=== PATIENT | male | born 1950 | race Caucasian/White ===

== ENCOUNTER 2017-11-19 11:51 | Day surgery (SDC) | payer OTHER ==
[~2017-11-19] VITALS: Ht 177.8 cm; Wt 63.7 kg
[~2017-11-19 11:51] MED LIST: ATOR10TA PO; CYCL1PAK PO; EXFO5TAB PO; FURO10S TUBE; GLIP10TA67 PO; HYDR50TA15 PO; LISI40TA PO; METO25 PO; NIFE1TAB86 PO; PIOG30 PO; PRAV20 PO
[2017-11-19 12:26] VITALS: BP 115/71; PULSE 91; RESP 18; TEMP 98; O2SAT 98
[2017-11-19] MEDS ORDERED: AMLO-168 PO (12:37)
[2017-11-19] MEDS ORDERED: BUME2TAB PO (12:37)
[2017-11-19] MEDS ORDERED: LIPI10TA PO (12:37)
[2017-11-19] MEDS ORDERED: PLAV75TA29 PO (12:37)
[2017-11-19] MEDS ORDERED: GLIP5TAB8 PO (12:37)
[2017-11-19] MEDS ORDERED: ECASA81 PO (12:37)
--- NOTE | 2017-11-19 12:50 | PD.VS.PN ---
Pre-operative Note Pre-operative diagnosis: R LE tissue loss, PAD Planned procedure: R LE angiogram with endovascular intervention Interval History: Pt has been feeling well - no F/C. Only has R foot pain with ambulation. Labs: pending Blood: none needed Imaging: will make in OR Orders: NPO Post-operative destination: DOCU Operative site marked: Yes Consent: Informed consent has been obtained from Predrag Colich. I have explained the procedure in detail and discussed the risks, benefits, and potential complications. All questions have been answered. Kevin Leija MD Nov 19, 2017 12:50
[2017-11-19 13:14] LABS: CALCIUM 9.7 MG/DL (8.5-10.1); CREATININE 6.58 MG/DL (0.60-1.30)
[2017-11-19] MEDS ORDERED: HEPARIN-NS/PF FLUSH BAG 1,000 ML IV FLUSH ONE (13:31)
[2017-11-19] MEDS ORDERED: MIDAZOLAM HCL 2 MG/2 ML VIAL ONE (13:31)
[2017-11-19] MEDS ORDERED: HEPARIN SODIUM - IV 10,000 UNITS/10 ML VIAL ONE (13:50)
--- NOTE | 2017-11-19 14:46 | HHI.PR ---
cc: Kevin Leija MD Immediate Post Op Note Procedure Date: Nov 19, 2017 Pre Op Diagnosis: PAD w/ R LE tissue loss Post Op Diagnosis: PAD w/ R LE tissue loss Surgeon: Kevin Leija Auto Vinyl Top Installer(s): none Procedure: Aortogram w/ R LE angiogram R AT MICA LAYER L STENO POOL SUPERVISOR Angioseal Findings: 1. Occluded PT 2. Occluded AT, not able to recanalize Additional Information: L STENO POOL SUPERVISOR Angioseal Complications: none Specimen(s) removed: none Estimated blood loss: 10mL Anesthesia: MAC Drains: None Patient to: Other (DOCU) Patient Condition: Good Date/Time of Procedure: SEE SURGICAL CARE RECORD Kevin Leija MD Nov 19, 2017 14:46
--- NOTE | 2017-11-19 14:53 | CATHPROC ---
[employer] HIS Report Study Information Study Number Admission Scheduled Start Study Start [id number] Nov 19 2017 11:51AM 11/19/2017 Nov 19 2017 1:24PM [facility] Endovascular Study Admit Source Facility Department [facility] - Trapeze Performer Physician and Clinical Staff Initial MD Leija, Kevin Concrete Rod Buster Bony Jackson RN Recorder Karthik Vicente,RT(R) Rebecca Moore,RT(R) (BS) Procedures Performed Procedure Location (Site) Vessel Name Abdominal Angiogram Fem R. Com (R7) Femoral Art Abdominal Angiogram PELVIS Abdominal Angiogram Popliteal R (R10) Popliteal Abdominal Angiogram SFA (right) Femoral Art Abdominal Angiogram Tib, Ant. (right) Popliteal Abdominal Angiogram Tib, Post (right) Popliteal Angiogram (manual) Tib, Ant. (right) Popliteal GUM ROLLING MACHINE OPERATOR Tib, Ant. (right) Popliteal Wire insertion Fem Art (left) Femoral Art Wire insertion Tib, Ant. (right) Popliteal Equipment Time Culinary Arts Instructor Description Size Mfg Part Number Used/Scraped [id number] 13:39 ANGIO-DYNAMICS OMNI FLUSH 65CM CATHETER FR 4 Used *[id number] INTRODUCER SET, 13:39 COOK INC. FR 5 [id number] *[id number] Used MICROPUNCTURE, STIFFENED CXI-4.0-35-135- 13:59 COOK/KYLIE CATHETER, FR4 CXI SUPPORT FR 4 Used P-NS-0 *[id number] CATHETER, CXI SUPPORT 14:01 COOK/KYLIE .018 [id number] Used STRAIGHT .018 150CM KCFW-6.0-38-90- 13:51 COOK/KYLIE SHEATH, FR6 RAABE 90CM FR 6 Used RB WIRE, GUIDE APPROACH BI CONSULTANT [id number] 13:52 COOK/KYLIE 300CM Used MICROWIRE *[id number] WIRE, GUIDE APPROACH BI CONSULTANT [id number] 14:25 COOK/KYLIE 300CM Used MICROWIRE *[id number] WIRE, STORQ STANDARD MOD J [id number] 13:44 CORDIS/ KYLIE 300CM Used 300CM *[id number] 14:41 DAIG/ST. RAMIRO MEDICAL ANGIOSEAL FR8 FR 8 Used *[id number] BALLOON, AMPHIRION DEEP 1.5 X [id number] 14:12 [employer] TECHNOLOGIES 150CM Used 20 150CM *[id number] BALLOON, AMPHIRION DEEP 2 X 14:27 INVATEC TECHNOLOGIES 152CM [id number] Used 40 150CM BALLOON, AMPHIRION DEEP 2 X [id number] 14:20 INVATEC TECHNOLOGIES 150CM Used 80 150CM *[id number] BALLOON, AMPHIRION DEEP 3 X [id number] 14:08 INVATEC TECHNOLOGIES 150CM Used 80 150CM *[id number] WIRE, CHOICE PT 300CM PT EX. [id number] 14:17 Meditech 300CM Used SUPP *[id number] 13:39 [employer]et [employer] INDUSTRIES PACK, CCL CUSTOM * Used *[id number] TUBING, PRESSURE INJECTION [id number] 13:39 NAMIC PACER 72" Used 72" *[id number] 13:39 NYCOMED OMNIPAQUE, 300 MG, 150ML 150ML [id number] Used 13:39 NYCOMED OMNIPAQUE, 300 MG, 50ML 50ML [id number] Used [id number] 13:39 LANDRUM MEDICAL BLANKET,WARM AIR CCL * Used *[id number] 13:39 TERUMO MEDICAL SHEATH, FR4 TERUMO (10CM) FR 4 Used *[id number] JFI121 13:55 TERUMO MEDICAL SHEATH, FR6 TERUMO (10CM) FR 6 Used *[id number] 13:52 TERUMO MEDICAL/KYLIE CATHETER, FR5 ANGLED 100CM FR 5 [id number] *[id number] Used WIRE, ANGLED GLIDE .035 [id number] 13:39 TERUMO MEDICAL/KYLIE 260CM Used 260CM *[id number] Equipment Model, Serial, Lot Number and Expiration Data Description Model Number Serial Number Lot Number Expiration Date CATHETER, FR4 CXI SUPPORT [id number] 08-15-2020 CATHETER, CXI SUPPORT [id number] 08-15-2020 STRAIGHT .018 150CM SHEATH, FR6 RAABE 90CM [id number] 08-28-2020 WIRE, CHOICE PT 300CM PT EX. [id number] 12-25-2018 SUPP WIRE, GUIDE APPROACH BI CONSULTANT [id number] 12-27-2021 MICROWIRE History: Current Medications Medication Dosage/Unit Route Frequency Last Date/Time Taken ASA PLAVIX Glypizide LIPITOR History: Allergies Allergy Reaction No Known Allergies History: Risk Factors Family History of Hypertension Dyslipidemia Previous [place] Previous Heart Failure Premature CAD Yes Yes No No No Prior Valve Prior PCI Prior CABG Surgery No No No Cerebrovascular Peripheral Artery Chronic Lung On Dialysis Diabetes Diabetes Therapy Disease Disease Disease Yes No Yes No Yes Oral History: Risk Factors Selection Items Diabetes Hypercholesterolemia-Lipid Low. Therapy History: Stress Tests Stress or Imaging Studies Performed No History: Other Disease Selection Items HTN Renal Failure-Dialysis History: Other Current Smoker No Labs Hgb (g/dl) 11.60-17.00 Not Drawn Glucose (mg/dl) BUN (mg/dl) Creatinine (mg/dl) BUN:Creatinine (1:x) 74.00-106.00 7.00-18.00 0.50-1.30 10.00-20.00 162 45 6.5 6.9 Na (meq/l) K (meq/l) 136.00-145.00 3.50-5.10 139 4.3 CPK-MB (ng/ML) 0.50-3.60 Not Drawn Medication Medication Total Dose (Bolus/Oral) Medication Total Dosage/Unit 1% XYLOCAINE 20 mL FENTANYL 100 mcg HEPARIN 8000 units VERSED 2 mg Medications (Bolus/Oral) Medication Time Given Dosage/Unit Administered By Reason VERSED 11/19/2017 1:35:36 PM 1 mg Bony Jackson 1 mg VERSED given in lab by Bony Jackson RN in Right Antecubital via Peripheral IV. FENTANYL 11/19/2017 1:36:00 PM 50 mcg Bony Jackson 50 mcg FENTANYL given in lab by Bony Jackson RN in Right Antecubital via Peripheral IV. 1% XYLOCAINE 11/19/2017 1:37:38 PM 20 mL Kevin Leija 20 mL 1% XYLOCAINE given in lab by Kevin Leija in Left Groin via Subcutaneous. HEPARIN 11/19/2017 1:51:21 PM 5000 units Bony Jackson As per physicians v erbal order 5000 units HEPARIN given in lab by Bony Jackson RN in Right Antecubital via Peripheral IV. Ordered by Kevin Leija. Reason: As per physicians verbal order. HEPARIN 11/19/2017 2:11:16 PM 3000 units Bony Jackson As per physicians v erbal order 3000 units HEPARIN given in lab by Bony Jackson RN in Right Antecubital via Peripheral IV. Ordered by Kevin Leija. Reason: As per physicians verbal order. VERSED 11/19/2017 2:11:26 PM 1 mg Bony Jackson 1 mg VERSED given in lab by Bony Jackson RN in Right Antecubital via Peripheral IV. Ordered by Kevin Lemons. FENTANYL 11/19/2017 2:11:32 PM 50 mcg Bony Jackson 50 mcg FENTANYL given in lab by Bony Jackson RN in Right Antecubital via Peripheral IV. Ordered by Kevin Leija. Medication (Drip) Medication Time Given Dosage/Unit Concentration/Unit Diluent (ml) Solutio n IV Solutions 11/19/2017 1:24:03 PM 0 mL (IV) 500 NaCl .9 IV Solutions given in lab by Bony Jackson RN in Right Antecubital via Peripheral IV. Pump/Drip Flow = 20 ml/hr using NaCl .9. Initial Case Assessment Cardiovascular HR Rhythm NIBP Chest Pain 65 Sinus 160/82 0 Edema Present Skin color Skin None Normal Warm Dry Circulatory - Right Pulses Femoral 2 Scale (0,1,2,3,4,d) Circulatory - Left Pulses Femoral 2 Scale (0,1,2,3,4,d) Neurological State Oriented to time-place- Alert Moves all extremities person Respiration - General Respiration Rate SpO2 (%) O2 (lpm) (B/min) 10 99 0 Final Case Assessment Cardiovascular HR Rhythm NIBP Chest Pain 65 Sinus 142/76 0 Edema Present Skin color Skin None Normal Warm Dry Circulatory - Right Pulses Femoral 2 Scale (0,1,2,3,4,d) Circulatory - Left Pulses Femoral 2 Scale (0,1,2,3,4,d) Neurological State Oriented to time-place- Alert Moves all extremities person Respiration - General Respiration Rate SpO2 (%) O2 (lpm) (B/min) 8 100 2 Chronological Log Time Study Chronological Log 13:23:43 Patient arrived via Bed. 13:23:44 Patient Name, D.O.B, / Armband Verified By R.N. 13:23:44 Consent signed by the physician and the patient and verified by the Trapeze Performer staff. 13:23:45 Pre-op and post- op instructions given; patient acknowledges understanding of instructions. 13:23:46 Verbal Stimulation=2 Physical Stimulation=2 Airway=2 Respiration=2 TOTAL=8. (0=absent, 1=li mited, 2=present) 13:23:47 Presedation assessment performed by Trapeze Performer RN. 13:23:51 Patient has been NPO for More than 6Hrs. 13:23:52 Skin Breakdown- Right foot non healing wounds. 13:23:57 Patient Warmer Placed on the Table. 13:23:58 Zenaida Prominences Protected 13:24:02 A # 20 IV was noted in the Antecubital (right). Grade = 0 IV Solutions given in lab by Bony Jackson RN in Right Antecubital via Peripheral IV. Pump/Dri p Flow = 20 ml/hr using 13:24:03 NaCl .9. 13:24:05 History and physical on the chart or being dictated. Assessment: Initial Case, HR=65 BPM, Rhythm=Sinus, LAEV=424/82 mmhg, Chest Pain=0, Edema=None, Color=Normal, Skin = Warm, Dry Right Pulses: Femoral=2 13:24:20 Left Pulses: Femoral=2 Neurological: State=Alert, Ox3, MOBLEY Respiration: Resp=10 B/min, SpO2=99 %, O2=0 lpm 13:30:02 MD arrived. Vitals capture started with the following parameters, Patient=Adult, Interval=5 min, Initial Pr cgegoe=535 mmHg, 13:30:42 Deflation Rate=5 mmHg, Cuff placed on Right Ankle 13:31:46 Reference ECG taken 13:31:59 HR=70 bpm, PNCI=543/82 mmhg, PnE1=154.0 %, Resp=25 B/min, Pain=0, Omar=10, Hallman=2 13:34:04 Bilateral groins prepped with 2% chlorhexidine, and draped after a 3 minute waiting time. 13:35:36 1 mg VERSED given in lab by Bony Jackson RN in Right Antecubital via Peripheral IV. 13:36:00 50 mcg FENTANYL given in lab by Bony Jackson RN in Right Antecubital via Peripheral IV. 13:36:21 HR=66 bpm, AMSR=624/85 mmhg, SpO2=99.0 %, Resp=6 B/min, Pain=0, Omar=10, Hallman=2 Time Out. Correct patient, correct procedure, correct physician, power injector loaded, or not loaded with contrast with 13:36:23 surgical team present. Time Out Concurred by MD and individual staff in procedure. 13:36:24 Case Start 13:37:38 20 mL 1% XYLOCAINE given in lab by Kevin Leija in Left Groin via Subcutaneous. 13:38:03 Access site was Left Femoral Artery. 13:38:08 A SHEATH, FR4 TERUMO (10CM) FR 4 was advanced into the Fem Art (left) using the Percutaneou s technique. A OMNI FLUSH 65CM CATHETER FR 4 was advanced over a wire. OMNIPAQUE, 300 MG, 150ML 150ML was us ed for 13:40:53 injections. 13:41:24 HR=64 bpm, OSYL=993/75 mmhg, SpO2=95.0 %, Resp=0 B/min, Pain=0, Omar=10, Hallman=2 13:41:58 Through a OMNI FLUSH 65CM CATHETER FR 4, The Abdominal Aorta was injected with 10 cc's of c ontrast. 13:42:27 A WIRE, ANGLED GLIDE .035 260CM 260CM was inserted via Fem Art (left). 13:44:03 Wire removed 13:44:04 A WIRE, STORQ STANDARD MOD J 300CM 300CM was inserted via Fem Art (left). 13:45:16 Through a OMNI FLUSH 65CM CATHETER FR 4, The Abdominal Aorta was injected with 4 cc's of co ntrast. 13:45:34 Through a OMNI FLUSH 65CM CATHETER FR 4, The Abdominal Aorta was injected with 4 cc's of co ntrast. 13:45:45 Through a OMNI FLUSH 65CM CATHETER FR 4, The Abdominal Aorta was injected with 4 cc's of co ntrast. 13:46:15 Through a OMNI FLUSH 65CM CATHETER FR 4, The Abdominal Aorta was injected with 4 cc's of co ntrast. 13:46:19 HR=61 bpm, KGTS=536/76 mmhg, YnZ4=815.0 %, Resp=12 B/min, Pain=0, Omar=10, Hallman=2 13:49:06 Through a OMNI FLUSH 65CM CATHETER FR 4, The Abdominal Aorta was injected with 4 cc's of co ntrast. 13:49:54 Through a OMNI FLUSH 65CM CATHETER FR 4, The Abdominal Aorta was injected with 4 cc's of co ntrast. 13:51:20 HR=64 bpm, JSZP=842/83 mmhg, BlM6=675.0 %, Resp=3 B/min, Pain=0, Omar=10, Hallman=2 5000 units HEPARIN given in lab by Bony Jackson, RN in Right Antecubital via Peripheral IV. Or dered by Kevin Leija. 13:51:21 Reason: As per physicians verbal order. 13:52:56 A WIRE, STORQ STANDARD MOD J 300CM 300CM was inserted via Fem Art (left). 13:53:11 Catheter was removed A SHEATH, FR6 RAABE 90CM FR 6 was exchanged in the Fem Art (left). This was necessary in order to accomodate a 13:53:15 larger catheter. 13:56:23 HR=64 bpm, UBBQ=523/77 mmhg, OwT9=781.0 %, Resp=26 B/min, Pain=0, Omar=10, Hallman=2 A CATHETER, FR5 ANGLED 100CM FR 5 was advanced over a wire. OMNIPAQUE, 300 MG, 150ML 150ML was used for 13:58:28 injections. After removing the current catheter a CATHETER, FR4 CXI SUPPORT FR 4 was advanced over a WIRE, STORQ 14:00:48 STANDARD MOD J 300CM 300CM. 14:01:20 HR=63 bpm, KOXS=499/76 mmhg, AxD0=166.0 %, Resp=0 B/min, Pain=0, Omar=10, Hallman=2 A CATHETER, CXI SUPPORT STRAIGHT .018 150CM .018 was advanced over a wire. OMNIPAQUE, 300 MG, 1 50ML 14:02:11 150ML was used for injections. 14:03:35 The previous wire was exchanged for a WIRE, GUIDE APPROACH BI CONSULTANT MICROWIRE 300CM. 14:06:21 HR=62 bpm, AGKY=572/76 mmhg, SzE3=488.0 %, Resp=4 B/min, Pain=0, Omar=10, Hallman=2 14:06:21 Catheter was removed 14:06:28 Catheter was removed A BALLOON, AMPHIRION DEEP 3 X 80 150CM 150CM was inserted over WIRE, GUIDE APPROACH BI CONSULTANT MICROWI RE 14:08:06 300CM via the Tib, Ant. (right). 14:10:07 Balloon Removed. 3000 units HEPARIN given in lab by Bony Jackson RN in Right Antecubital via Peripheral IV. Or dered by Kevin Leija. 14:11:16 Reason: As per physicians verbal order. 14:11:22 HR=63 bpm, PEYC=283/77 mmhg, FwO7=282.0 %, Resp=0 B/min, Pain=0, Omar=10, Hallman=2 14:11:26 1 mg VERSED given in lab by Bony Jackson RN in Right Antecubital via Peripheral IV. Order ed by Kevin Leija. 14:11:32 50 mcg FENTANYL given in lab by Bony Jackson RN in Right Antecubital via Peripheral IV. O rdered by Kevin Leija. A BALLOON, AMPHIRION DEEP 1.5 X 20 150CM 150CM was inserted over WIRE, GUIDE APPROACH BI CONSULTANT MICRO WIRE 14:11:36 300CM via the Tib, Ant. (right). 14:14:11 Balloon Removed. 14:14:18 Wire removed 14:14:21 A WIRE, ANGLED GLIDE .035 260CM 260CM was inserted via Fem Art (left). 14:16:26 HR=62 bpm, PSZH=037/68 mmhg, SpO2=97.0 %, Resp=5 B/min, Pain=0, Omar=10, Hallman=2 14:16:30 Wire removed 14:17:16 Tib, Ant. (right) angiogram, manually injected. 14:17:40 A WIRE, CHOICE PT 300CM PT EX. SUPP 300CM was inserted via Fem Art (left). A BALLOON, AMPHIRION DEEP 2 X 80 150CM 150CM was inserted over WIRE, CHOICE PT 300CM PT EX. SUP P 300CM 14:19:13 via the Tib, Ant. (right). 14:21:23 HR=63 bpm, VDPE=460/70 mmhg, SpO2=98.0 %, Resp=0 B/min, Pain=0, Omar=10, Hallman=2 14:22:59 Wire removed 14:23:00 A WIRE, GUIDE APPROACH BI CONSULTANT MICROWIRE 300CM was inserted via Tib, Ant. (right). A CATHETER, FR5 ANGLED 100CM FR 5 was advanced over a wire. OMNIPAQUE, 300 MG, 150ML 150ML was used for 14:25:26 injections. 14:26:22 HR=64 bpm, WXXO=886/68 mmhg, SpO2=99.0 %, Resp=1 B/min, Pain=0, Omar=10, Hallman=2 A BALLOON, AMPHIRION DEEP 2 X 40 150CM 152CM was inserted over WIRE, GUIDE APPROACH BI CONSULTANT MICROWI RE 14:26:28 300CM via the Tib, Ant. (right). 14:28:10 Tib, Ant. (right) angiogram, manually injected. 14:28:46 In the Tib, Ant. (right) a BALLOON, AMPHIRION DEEP 2 X 40 150CM 152CM was inflated to 8 charleen s for 120 seconds. 14:31:21 HR=64 bpm, RXZM=706/73 mmhg, SpO2=98.0 %, Resp=6 B/min, Pain=0, Omar=10, Hallman=2 14:32:03 Balloon Removed. 14:32:59 Tib, Ant. (right) angiogram, manually injected. A CATHETER, CXI SUPPORT STRAIGHT .018 150CM .018 was advanced over a wire. OMNIPAQUE, 300 MG, 1 50ML 14:34:19 150ML was used for injections. 14:34:55 Tib, Ant. (right) angiogram, manually injected. 14:36:22 HR=65 bpm, BMXR=253/71 mmhg, SpO2=98.0 %, Resp=5 B/min, Pain=0, Omar=10, Hallman=2 14:36:24 A WIRE, GUIDE APPROACH BI CONSULTANT MICROWIRE 300CM was inserted via Fem Art (left). 14:37:19 Wire removed 14:39:49 A WIRE, STORQ STANDARD MOD J 300CM 300CM was inserted via Fem Art (left). 14:41:01 ANGIOSEAL FR8 FR 8 placement in the Fem Art (left) 14:41:23 HR=65 bpm, NJUT=968/76 mmhg, SpO2=99.0 %, Resp=6 B/min, Pain=0, Omar=10, Hallman=2 14:42:43 Case End 14:42:45 No case complications noted. 14:42:47 Cine recording checked. 14:43:17 Bedside Report will be given. Assessment: Final Case, HR=65 BPM, Rhythm=Sinus, AKVI=988/76 mmhg, Chest Pain=0, Edema=None, Color=Normal, Skin = Warm, Dry Right Pulses: Femoral=2 14:43:43 Left Pulses: Femoral=2 Neurological: State=Alert, Ox3, MOBLEY Respiration: Resp=8 B/min, DmE7=607 %, O2=2 lpm 14:44:40 Sterile dressing applied to site 14:45:54 Vitals capture stopped. 14:50:03 Patient moved to stretcher End Study - Contrast Media Used In Study Contrast Total Opened (mL) Total Used (mL) Total Wasted (mL) Omnipaque 200 80 120 End Study - Maximum Contrast Load Max Contrast Load (mL) 49.2 End Study - Radiation Exposure Fluoro Time (minutes) 21.4 End Study - Patient Disposition Complications Transferred To Interventional Outcome No Outpatient Bed unsuccessful
--- NOTE | 2017-11-21 15:33 | MP ---
cc: DIONISIO LEIJA MD DATE OF SURGERY: 11/19/2017 PREOPERATIVE DIAGNOSIS Right lower extremity tissue loss, peripheral arterial occlusive disease. POSTOPERATIVE DIAGNOSIS Right lower extremity tissue loss, peripheral arterial occlusive disease. PROCEDURE 1. Aortogram with right lower extremity angiogram. 2. Right anterior tibial artery angioplasty. ATTENDING SURGEON Dionisio Leija MD ANESTHESIA Local with sedation. INDICATIONS Mr. Solitario is a 67-year-old gentleman with endstage renal disease and profound tissue loss of his right lower extremity. He is taken to the operating room for angiographic evaluation and treatment. There is no prior catheter-based imaging available for my review. DESCRIPTION OF PROCEDURE Informed consent was obtained from the patient. He was taken to the operating room and placed supine on the operating room table. An appropriate time-out was taken to insure patient identity, the operative site and planned procedure. Antibiotics were not necessary as this is a clean procedure without planned implantation of any foreign object. Everyone in the room agreed with time-out and we proceeded. His bilateral groins were prepped and draped and the left groin was anesthetized with 1% lidocaine. A 21 gauge micropuncture needle was used to access the left common femoral artery which was exchanged using Seldinger technique through micropuncture sheath which a 0.035 Glidewire was introduced and the micropuncture sheath was exchanged for a 4-Fijian sheath. A VCF catheter was placed over the wire into the sheath and aortogram and pelvic arteriogram was obtained. The Glidewire was reintroduced and navigated down to right common femoral artery and the VCF catheter was advanced over this and a right lower extremity arteriogram was obtained. The patient was systemically heparinized with 5000 units of IV heparin. A 0.035 Orozco wire was advanced down to the popliteal artery and the VCF catheter and 4-Fijian sheath were removed and a 6-Fijian 90 cm sheath was introduced. A CXI catheter was placed over the Orozco and the Orozco exchanged for a glide and the glide and CXI were navigated down to the anterior tibial artery. The glide was removed and a 0.018 CXI and a 0.014 CENTRAL OFFICE MECHANIC wire were then inserted and multiple attempts with various wire catheter combinations were used to recanalize the anterior tibial artery. We were able to recanalize the proximal half and angioplasty this with a 2-mm balloon. The completion angiogram showed residual femoral stenosis that was unable to be traversed. The wire, catheter and sheath were removed and the groin was closed with AngioSeal. There were no complications. I was present and scrubbed for the entire procedure. INTERPRETATION OF IMAGES The patient has patent infrarenal aorta, common iliac arteries, hypogastric arteries, external iliac arteries bilaterally. There is no hemodynamically significant stenoses of any of these blood vessels. The right common femoral artery profunda and SFA are patent. The popliteal artery is patent. The peroneal artery has a dominant runoff to the level of foot. The posterior tibial artery is occluded and has no reconstitution. Anterior tibial artery is occluded immediately after the genu and has reconstitution in the dorsalis pedis. There are several high-grade calcific stenoses and jason occlusions throughout the course of the anterior tibial artery, the proximal aspect of which are angioplastied. MD CHUNG Stone/NISHA /8:01 PM /11:37 AM
== END 2017-11-19 17:31 | disposition home or self-care (01) ==
LOC: HDOC 11:51 → HDIC 11:52 → HDOC 17:31
PROVIDERS: ATTEND Surgery
DX: I73.9 Peripheral vascular disease, unspecified (principal); I12.0 Hypertensive chronic kidney disease with stage 5 chronic kidney disease or end stage renal disease; N18.6 End stage renal disease; E11.22 Type 2 diabetes mellitus with diabetic chronic kidney disease; E78.5 Hyperlipidemia, unspecified
CPT/HCPCS: 37228; 75710; 75736; 80048; C1725; C1751; C1760; C1769; C1887; C1893; G0269; J1644; J2250; J3010

== ENCOUNTER 2017-11-25 13:42 | Inpatient (IN) | payer OTHER, MEDICARE ==
[~2017-11-25] VITALS: Ht 177.8 cm; Wt 75.0 kg
[~2017-11-25 13:42] MED LIST changes: +AMLO-168 PO; -ATOR10TA PO; +BUME2TAB PO; -CYCL1PAK PO; +ECASA81 PO; -EXFO5TAB PO; -FURO10S TUBE; -GLIP10TA67 PO; +GLIP5TAB8 PO; -HYDR50TA15 PO; +LIPI10TA PO; -LISI40TA PO; -METO25 PO; -NIFE1TAB86 PO; -PIOG30 PO; +PLAV75TA29 PO; -PRAV20 PO
[2017-11-25 13:50] VITALS: BP 160/84; PULSE 91; RESP 16; TEMP 98; O2SAT 95
[2017-11-25 14:24] LABS: BASOPHIL # 0.1 TH/MM3 (0-0.2); EOSINOPHIL # 0.2 TH/MM3 (0-0.4); EOSINOPHIL % 2.1 % (0.0-4.0); HEMATOCRIT 29.1 % (39.0-51.0); HEMOGLOBIN 9.7 GM/DL (13.0-17.0); LYMPH % 13.5 % (9.0-44.0); LYMPHOCYTE # 1.3 TH/MM3 (1.0-4.8); MEAN CELL VOLUME 98.2 FL (80.0-100.0); MEAN CORPUSCULAR HEMOGLOBIN 32.6 PG (27.0-34.0); MEAN CORPUSCULAR HGB CONC 33.2 % (32.0-36.0); MEAN PLATELET VOLUME 7.6 FL (7.0-11.0); MONO % 11.8 % (0.0-8.0); MONOCYTE # 1.1 TH/MM3 (0-0.9); NEUT % 71.6 % (16.0-70.0); PLATELET COUNT 310 TH/MM3 (150-450); RED BLOOD COUNT 2.96 MIL/MM3 (4.50-5.90); RED CELL DISTRIBUTION WIDTH 14.4 % (11.6-17.2); WHITE BLOOD COUNT 9.7 TH/MM3 (4.0-11.0)
[2017-11-25 14:33] LABS: PROTHROMBIN TIME - PATIENT 10.6 SEC (9.8-11.6)
[2017-11-25 14:42] LABS: BICARBONATE 27.3 MEQ/L (21.0-32.0)
[2017-11-25 14:46] LABS: CREATININE 10.41 MG/DL (0.60-1.30)
--- NOTE | 2017-11-25 14:52 | RADRPT ---
EXAM DATE/TIME: 11/25/2017 14:23 [facility] COMPARISON: No previous studies available for comparison. INDICATIONS : Right foot pain with open wound on great toe. MEDICAL HISTORY : Diabetes mellitus type II. Hypertension SURGICAL HISTORY : None. ENCOUNTER: Initial ACUITY: 3 months PAIN SCORE: 3/10 LOCATION: Right foot FINDINGS: 3 views of the right foot demonstrate normal mineralization and no finding to indicate fracture or di slocation. There is extensive small vessel arterial vascular calcification. Lisfranc joint appears in tact. The distal phalanx of the first digit has an abnormal appearance. The tuft and diaphyseal regio n are absent. The proximal epiphysis and portion of the metaphysis are present. Soft tissue irregular ity is present at the tip of the distal phalanx. CONCLUSION: 1. There has been osseous destruction of the distal half of the first digit distal phalanx. 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 2. Severe small vessel arterial vascular calcification in a pattern seen in diabetic patients. Benjamín Harris MD on November 25, 2017 at 14:49 Board Certified Radiologist. This report was verified electronically.
--- NOTE | 2017-11-25 15:39 | PD ---
HPI Chief Complaint: Injury Time Seen by Provider: 15:02 Travel History International Travel<30 days: No Contact w/Intl Traveler<30days: No Traveled to known affect area: No History of Present Illness HPI This is a 67-year-old male with a history of renal failure, diabetes mellitus, peripheral vascular disease, who presents today with worsening infection of his right great toe. Patient states he was seen and admitted 2 months ago for the [facility]. He states at that time there is a vascular surgeon that he interacted with who the time did not want to do anything surgical. He reports now that the toe has gotten progressively worse to the point now where there is exposed bone and redness. He denies any fevers, chills. He denies any vomiting or diarrhea. Patient also reports that he has a lesion on his right heel as well as his right lateral sole of his foot. The patient states he was supposed to have dialysis today however came here instead because he is more concerned about his foot. Patient also reports that his renal doctor is Dr. Abreu. His primary doctor is Dr. Ruben peters [facility]. [facility] Past Medical History Cancer: No Cardiovascular Problems: Yes High Cholesterol: Yes Chest Pain: No Diabetes: Yes Patient Takes Glucophage: No Endocrine: Yes Gastrointestinal Disorders: No Glaucoma: No Genitourinary: Yes Hepatitis: No Hiatal Hernia: No Hypertension: Yes Implanted Vascular Access Dvce: No Musculoskeletal: Yes Neurologic: No Reproductive: No Respiratory: No Integumentary: No Thyroid Disease: No Past Surgical History Abdominal Surgery: No Cardiac Surgery: No Ear Surgery: No Endocrine Surgery: No Eye Surgery: No Genitourinary Surgery: No Gynecologic Surgery: No Neurologic Surgery: No Oral Surgery: No Thoracic Surgery: No Other Surgery: Yes Social History Alcohol Use: Yes Tobacco Use: No Substance Use: No Allergies-Medications (Allergen,Severity, Reaction): Coded Allergies: No Known Allergies (Unverified , 11/07/14) Reported Meds & Prescriptions Reported Meds & Active Scripts Active Reported Glipizide 5 Mg Tab 5 Mg PO DAILY Take 30 minutes before a meal Plavix (Clopidogrel Bisulfate) 75 Mg Tab 75 Mg PO DAILY Bumetanide 2 Mg Tab 2 Mg PO DAILY Lipitor (Atorvastatin Calcium) 10 Mg Tab 10 Mg PO HS Aspirin DR (Aspirin) 81 Mg Tabdr 81 Mg PO DAILY Amlodipine-Valsartan 10-160 Mg Tab 1 Tab PO DAILY Review of Systems Except as stated in HPI: all other systems reviewed are Neg General / Constitutional: No: Fever, Chills HENT: No: Headaches, Lightheadedness, Neck Pain Cardiovascular: No: Chest Pain or Discomfort, Palpitations Respiratory: No: Cough, Shortness of Breath Gastrointestinal: No: Nausea, Vomiting, Abdominal Pain Genitourinary: No: Flank Pain Musculoskeletal: Positive: Edema (Mild), Pain (Right foot and great toe), Other (Increased redness and black coloration) Skin: Positive Lesions (Right great toe lesion with exposed bone. Also with a heel ulcer and mid forefoot plantar ulcer.), No Other Neurologic: No: Weakness, Headache Physical Exam Narrative GENERAL: Well-developed well-nourished male in no acute respiratory distress. SKIN: Focused skin assessment warm/dry. HEAD: Atraumatic. Normocephalic. EYES: Pupils equal and round. No scleral icterus. No injection or drainage. ENT: No nasal bleeding or discharge. Mucous membranes pink and moist. NECK: Trachea midline. No JVD. CARDIOVASCULAR: Regular rate and rhythm. No murmur appreciated. RESPIRATORY: No accessory muscle use. Clear to auscultation. Breath sounds equal bilaterally. GASTROINTESTINAL: Abdomen soft, non-tender, nondistended. Hepatic and splenic margins not palpable. MUSCULOSKELETAL: On examination of the patient's right foot, there is eschar and open bone exposed to the right first digit. There is surrounding erythema at the base of his right great toe. There is also a black nondraining ulcer noted on his heel and a black ulcer noted on his mid foot sole on the right lateral area. Dopplerable pulses on the dorsalis pedis but not palpable. NEUROLOGICAL: Awake and alert. No obvious cranial nerve deficits. Motor grossly within normal limits. Normal speech. Data Data Last Documented VS Vital Signs Date Time Temp Pulse Resp B/P (MAP) Pulse Ox O2 Delivery O2 Flow Rate FiO2 11/25/17 16:18 96 11/25/17 15:17 Room Air 11/25/17 13:50 98.0 91 16 160/84 (109) Orders Orders Complete Blood Count With Diff (11/25/17 13:53) Basic Metabolic Panel (Bmp) (11/25/17 13:53) Foot, Complete ([id number]) (11/25/17 ) Coag Profile (11/25/17 13:53) Blood Culture (11/25/17 15:20) Wound Culture And Gram Stain (11/25/17 15:20) Iv Access Insert/Monitor (11/25/17 15:20) Ecg Monitoring (11/25/17 15:20) Oximetry (11/25/17 15:20) Admit To Inpatient (11/25/17 ) Vital Signs (Adult) Q4H (11/25/17 16:26) Activity Oob With Assistance (11/25/17 16:26) Anode Rebuilder / Telemetry .CONTINUOUS (11/25/17 16:26) Diet 1800 Ada Cons Carb (11/25/17 Dinner) Diet Renal (11/25/17 Dinner) Sodium Chloride 0.9% Flush (Ns Flush) (11/25/17 16:30) Sodium Chloride 0.9% Flush (Ns Flush) (11/25/17 21:00) Basic Metabolic Panel (Bmp) (11/26/17 06:00) Complete Blood Count With Diff (11/26/17 06:00) Pt Request For Service (11/25/17 16:26) Case Management Consult (11/25/17 16:26) Naloxone Inj (Narcan Inj) (11/25/17 16:30) Inpatient Certification (11/25/17 ) Admit Order (Ed Use Only) (11/25/17 16:33) Labs Laboratory Tests Test 11/25/17 14:10 White Blood Count 9.7 TH/MM3 Red Blood Count 2.96 MIL/MM3 Hemoglobin 9.7 GM/DL Hematocrit 29.1 % Mean Corpuscular Volume 98.2 FL Mean Corpuscular Hemoglobin 32.6 PG Mean Corpuscular Hemoglobin Concent 33.2 % Red Cell Distribution Width 14.4 % Platelet Count 310 TH/MM3 Mean Platelet Volume 7.6 FL Neutrophils (%) (Auto) 71.6 % Lymphocytes (%) (Auto) 13.5 % Monocytes (%) (Auto) 11.8 % Eosinophils (%) (Auto) 2.1 % Basophils (%) (Auto) 1.0 % Neutrophils # (Auto) 7.0 TH/MM3 Lymphocytes # (Auto) 1.3 TH/MM3 Monocytes # (Auto) 1.1 TH/MM3 Eosinophils # (Auto) 0.2 TH/MM3 Basophils # (Auto) 0.1 TH/MM3 CBC Comment DIFF FINAL Differential Comment Prothrombin Time 10.6 SEC Prothromb Time International Ratio 1.0 RATIO Activated Partial Thromboplast Time 26.8 SEC Blood Urea Nitrogen 89 MG/DL Creatinine 10.41 MG/DL Random Glucose 211 MG/DL Calcium Level 11.0 MG/DL Sodium Level 135 MEQ/L Potassium Level 4.6 MEQ/L Chloride Level 97 MEQ/L Carbon Dioxide Level 27.3 MEQ/L Anion Gap 11 MEQ/L Estimat Glomerular Filtration Rate 5 ML/MIN MDM Medical Decision Making Medical Screen Exam Complete: Yes Emergency Medical Condition: Yes Differential Diagnosis Osteomyelitis versus dry gangrene versus cellulitis versus peripheral vascular disease. 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 Patient states he has had this for at least 2 months. He reports is now to the point where he has exposed bone. Patient has a history of diabetes mellitus and peripheral vascular disease. The patient appears to have gangrenous toe with likely osteomyelitis. He will be admitted to the medical service. Case was discussed with Dr. Joe who is agreeable to admission. Diagnosis Primary Impression: Right foot infection with great toe osteomyelitis Additional Impressions: ESRD (end stage renal disease) DM (diabetes mellitus) Pain HTN (hypertension) Admitting Information Admitting Physician Requests: Admit Guilherme Champagne MD Nov 25, 2017 15:39
[2017-11-25 16:18] VITALS: O2SAT 96
[2017-11-25] MEDS ORDERED: SODIUM CHLORIDE 0.9% FLUSH 10 ML FLUSH IV FLUSH PRN (16:30)
[2017-11-25] MEDS ORDERED: NALOXONE HCL 0.4 MG/ML AMP IV PUSH PRN (16:30)
[2017-11-25 17:30] VITALS: BP 201/88; PULSE 74; RESP 20; TEMP 97.3; O2SAT 100
--- NOTE | 2017-11-25 18:00 | HHI.HP ---
[facility] Unknown Admission Diagnosis right foot osteomyelitis, dm, renal failure dialysis dependent. Diagnoses: Chief Complaint: Right foot toe wound Travel History International Travel<30 Days: No Contact w/Intl Traveler <30 Da: No Traveled to Known Affected Are: No History of Present Illness Written by Stephanie Jiang, acting as scribe for Dr. Hale on 11/25/17 at 17:45. 67-year-old male with past medical history significant for HTN, ESRD on HD, DM, and PVD who presents to the emergency department with complaints of right foot great toe wound as well as right foot lateral and heel wound. He states that his right toe issues originally began 3 months ago and it started off originally as a blister on the top of his big toe as well as a blister on the side of his right foot. Review of EMR, patient recently underwent right anterior tibial artery angioplasty by Dr. Leija on 11/19/17. Patient reports that he was at [facility] in [facility] about 2 months ago due to right foot wounds. Patient states that there was no real treatment and that the foot was only looked at and application of ointment and bandages were done. Does not know who the stock letterer was who saw him while he was in the hospital. He states that he was only in the hospital for 3 days and was given IV antibiotics however felt that nothing was really being done for his foot therefore he left AGAINST MEDICAL ADVICE. Patient reports that he had been home and noticed that his right foot big toe was starting to get very hard. Therefore he grabbed a toenail clipper and clipped the toenail but when he clipped the toenail part of the toe fell off. He reports that the toe bled for about 1-2 hours. He believes that it was old blood underneath the toe that could have possibly caused his toe to be affected. Denies any fevers, chills, nausea, vomiting, diarrhea, constipation, black stools. No diarrhea BM every everyday. Review of Systems Except as stated in HPI: all other systems reviewed are Neg Past Family Social History Past Medical History DM HTN PVD ESRD on HD Dr. Abreu (for the past 3months) M/W/F ? PA at [facility] Past Surgical History Right arm Left femur back surgery Right subclavian perma cath Right anterior tibial artery angioplasty on 11/19/[address] Leija Reported Medications Reported Meds & Active Scripts Active Reported Glipizide 5 Mg Tab 5 Mg PO DAILY Take 30 minutes before a meal Plavix (Clopidogrel Bisulfate) 75 Mg Tab 75 Mg PO DAILY Bumetanide 2 Mg Tab 2 Mg PO DAILY Lipitor (Atorvastatin Calcium) 10 Mg Tab 10 Mg PO HS Aspirin DR (Aspirin) 81 Mg Tabdr 81 Mg PO DAILY Amlodipine-Valsartan 10-160 Mg Tab 1 Tab PO DAILY Allergies: Coded Allergies: No Known Allergies (Unverified , 11/07/14) Family History Is not aware of his past family history Social History Tobacco: Denies Alcohol: One beer every 6 months Illicit drug use: Denies Physical Exam Vital Signs Vital Signs Date Time Temp Pulse Resp B/P (MAP) Pulse Ox O2 Delivery O2 Flow Rate FiO2 11/25/17 16:18 96 11/25/17 15:17 96 Room Air 11/25/17 13:50 98.0 91 16 160/84 (109) 95 Physical Exam GENERAL: This is a well-nourished, well-developed patient, in no apparent distress. SKIN: No rashes, ecchymoses or lesions. Cool and dry. Right foot great toe partially missing, black or on top of toe. Right foot lateral aspect eschar, right heel eschar. HEAD: Atraumatic. Normocephalic. No temporal or scalp tenderness. EYES: Pupils equal round and reactive. Extraocular motions intact. No scleral icterus. No injection or drainage. ENT: Nose without bleeding, purulent drainage or septal hematoma. Throat without erythema, tonsillar hypertrophy or exudate. Uvula midline. Airway patent. NECK: Trachea midline. No JVD or lymphadenopathy. Supple, nontender, no meningeal signs. CARDIOVASCULAR: Regular rate and rhythm without murmurs, gallops, or rubs. RESPIRATORY: Clear to auscultation. Breath sounds equal bilaterally. No wheezes , rales, or rhonchi. GASTROINTESTINAL: Abdomen soft, non-tender, nondistended. No hepato-splenomegaly , or palpable masses. No guarding. MUSCULOSKELETAL: Extremities without clubbing, cyanosis, or edema. No joint tenderness, effusion, or edema noted. No calf tenderness. Negative Homans sign bilaterally. NEUROLOGICAL: Awake and alert. Cranial nerves II through XII intact. Motor and sensory grossly within normal limits. Five out of 5 muscle strength in all muscle groups. Normal speech. Laboratory Laboratory Tests Test 11/25/17 14:10 White Blood Count 9.7 Red Blood Count 2.96 Hemoglobin 9.7 Hematocrit 29.1 Mean Corpuscular Volume 98.2 Mean Corpuscular Hemoglobin 32.6 Mean Corpuscular Hemoglobin Concent 33.2 Red Cell Distribution Width 14.4 Platelet Count 310 Mean Platelet Volume 7.6 Neutrophils (%) (Auto) 71.6 Lymphocytes (%) (Auto) 13.5 Monocytes (%) (Auto) 11.8 Eosinophils (%) (Auto) 2.1 Basophils (%) (Auto) 1.0 Neutrophils # (Auto) 7.0 Lymphocytes # (Auto) 1.3 Monocytes # (Auto) 1.1 Eosinophils # (Auto) 0.2 Basophils # (Auto) 0.1 CBC Comment DIFF FINAL Differential Comment Prothrombin Time 10.6 Prothromb Time International Ratio 1.0 Activated Partial Thromboplast Time 26.8 Blood Urea Nitrogen 89 Creatinine 10.41 Random Glucose 211 Calcium Level 11.0 Sodium Level 135 Potassium Level 4.6 Chloride Level 97 Carbon Dioxide Level 27.3 Anion Gap 11 Estimat Glomerular Filtration Rate 5 Date/Time Source Procedure Growth Status 11/25/17 16:05 Blood Peripheral Aerobic Blood Culture Pending Received 11/25/17 16:05 Blood Peripheral Anaerobic Blood Culture Pending Received 11/25/17 16:05 Wound Toe Gram Stain Pending Received 11/25/17 16:05 Wound Toe Wound Culture Pending Received Result Diagram: 11/25/17 1410 11/25/17 1410 Caprini VTE Risk Assessment Caprini Risk Assessment Model Point Value = 1 Point Value = 2 Point Value = 3 Point Value = 5 Age 41-60 Minor surgery BMI > 25 kg/m2 Swollen legs Varicose veins or History of unexplained or recurrent spontaneous Oral contraceptives or hormone replacement Sepsis (< 1 month) Serious lung disease, including pneumonia (< 1 month) Abnormal pulmonary function Acute myocardial infarction Congestive heart failure (< 1 month) History of inflammatory bowel disease Medical patient at bed rest Age 61-74 Arthroscopic surgery Major open surgery (> 45 min) Laparoscopic surgery (> 45 min) Malignancy Confined to bed (> 72 hours) Immobilizing plaster cast Central venous access Age >= 75 History of VTE Family history of VTE Factor V Leiden Prothrombin [id number] Lupus anticoagulant Anticardiolipin antibodies Elevated serum homocysteine Heparin-induced thrombocytopenia Other congenital or acquired thrombophilia Stroke (< 1 month) Elective arthroplasty Hip, pelvis, or leg fracture Acute spinal cord injury (< 1 month) Prophylaxis Regimen Total Risk Factor Score Risk Level Prophylaxis Regimen 0-1 Low Early ambulation 2 Moderate Order ONE of the following: *Sequential Compression Device (SCD) *Heparin 5000 units SQ BID 3-4 Higher Order ONE of the following medications: *Heparin 5000 units SQ TID *Enoxaparin/Lovenox 40 mg SQ daily (WT < 150 kg, CrCl > 30 mL/min) *Enoxaparin/Lovenox 30 mg SQ daily (WT < 150 kg, CrCl > 10-29 mL/min) *Enoxaparin/Lovenox 30 mg SQ BID (WT < 150 kg, CrCl > 30 mL/min) AND/OR *Sequential Compression Device (SCD) 5 or more Highest Order ONE of the following medications: *Heparin 5000 units SQ TID (Preferred with Epidurals) *Enoxaparin/Lovenox 40 mg SQ daily (WT < 150 kg, CrCl > 30 mL/min) *Enoxaparin/Lovenox 30 mg SQ daily (WT < 150 kg, CrCl > 10-29 mL/min) *Enoxaparin/Lovenox 30 mg SQ BID (WT < 150 kg, CrCl > 30 mL/min) AND *Sequential Compression Device (SCD) Assessment and Plan Assessment and Plan 67-year-old male with past medical history significant for HTN, ESRD on HD, DM, and PVD who presents to the emergency department with complaints of right foot great toe wound as well as right foot lateral and heel wound. Right foot great toe gangrene Right heel, right lateral foot eschars PVD -Right foot x-ray reviewed, osseous destruction of the distal half of the first digit distal phalanx. Findings are highly suspicious for osteomyelitis associated osseous destruction. Severe small vessel arterial vascular calcification in pattern seen in diabetic patients. -Blood cultures 2 pending, total culture pending -We will start IV Levaquin and IV Zosyn, consult infectious disease for further recommendations, greatly appreciated -Consult placed for podiatry, appreciate recommendations -Consult placed for vascular surgery Dr. Leija who recently did right anterior tibial artery angioplasty on 11/19/17 ESRD on HD -Hemodialysis Saturday, Saturday, Saturday. Patient reports not having HD today. CMP reviewed, creatinine 10.41, potassium 4.6 -Consult placed for nephrology for HD, appreciate recommendations DM -Diabetic diet, Accu-Cheks with insulin sliding scale -Suspect patient is not compliant DVT prophylaxis-ambulation For nurse to do medication reconciliation once verified by patient's pharmacy Physician Certification Order for Inpatient Services The services are ordered in accordance with Medicare regulations or non- Medicare payer requirements, as applicable. In the case of services not specified as inpatient-only, they are appropriately provided as inpatient services in accordance with the 2-midnight benchmark. days is the estimated time the patient will need to remain in the hospital, assuming treatment plan goals are met and no additional complications. Stephanie Jiang Nov 25, 2017 18:00
[2017-11-25] MEDS ORDERED: LEVOFLOXACIN 750 MG PREMIX INJ 150 ML IV ONE (18:15)
[2017-11-25] MEDS ORDERED: GLUCAGON 1 MG/ML VIAL OTHER PRN (18:15)
[2017-11-25] MEDS ORDERED: DEXTROSE 50% IN WATER 50 ML VIAL(D50) IV PUSH PRN (18:15)
[2017-11-25 19:52] VITALS: BP 181/81; PULSE 71; RESP 16; TEMP 97.7; O2SAT 100
[2017-11-25] MEDS: PIPERACIL-TAZO 4.5 GM PREMIX 100 ML IV SCH (20:59)
[2017-11-25] MEDS: SODIUM CHLORIDE 0.9% FLUSH 10 ML FLUSH IV FLUSH SCH (21:00)
[2017-11-25] MEDS: INSULIN ASPART SUPPLEMENTAL SCALE SQ SCH (21:04)
[2017-11-25 23:20] VITALS: BP 139/66; PULSE 98; RESP 16; TEMP 97.2; O2SAT 92
[2017-11-26] MEDS: PIPERACIL-TAZO 4.5 GM PREMIX 100 ML IV SCH ×2 (02:26→08:53)
[2017-11-26 04:21] VITALS: BP 140/63; PULSE 72; RESP 16; TEMP 98.9; O2SAT 96
[2017-11-26 05:30] LABS: CALCIUM 10.4 MG/DL (8.5-10.1)
[2017-11-26 05:32] LABS: BASOPHIL # 0.1 TH/MM3 (0-0.2); EOSINOPHIL # 0.3 TH/MM3 (0-0.4); EOSINOPHIL % 3.7 % (0.0-4.0); HEMATOCRIT 29.4 % (39.0-51.0); HEMOGLOBIN 10.1 GM/DL (13.0-17.0); LYMPH % 15.9 % (9.0-44.0); LYMPHOCYTE # 1.2 TH/MM3 (1.0-4.8); MEAN CELL VOLUME 97.2 FL (80.0-100.0); MEAN CORPUSCULAR HEMOGLOBIN 33.4 PG (27.0-34.0); MEAN CORPUSCULAR HGB CONC 34.4 % (32.0-36.0); MEAN PLATELET VOLUME 7.3 FL (7.0-11.0); MONO % 14.4 % (0.0-8.0); MONOCYTE # 1.1 TH/MM3 (0-0.9); PLATELET COUNT 296 TH/MM3 (150-450); RED BLOOD COUNT 3.02 MIL/MM3 (4.50-5.90); RED CELL DISTRIBUTION WIDTH 14.1 % (11.6-17.2); WHITE BLOOD COUNT 7.8 TH/MM3 (4.0-11.0)
[2017-11-26 05:36] LABS: CREATININE 10.54 MG/DL (0.60-1.30)
[2017-11-26] MEDS: INSULIN ASPART SUPPLEMENTAL SCALE SQ SCH ×4 (08:00→22:05)
[2017-11-26 08:03] VITALS: BP 148/67; PULSE 77; RESP 18; TEMP 97.3; O2SAT 97
[2017-11-26] MEDS: SODIUM CHLORIDE 0.9% FLUSH 10 ML FLUSH IV FLUSH SCH ×2 (08:54→22:05)
[2017-11-26] MEDS ORDERED: INFLUENZA VIRUS VACCINE (QUADRIVALENT) 0.5 ML SYR IM ONE (10:00)
[2017-11-26] MEDS ORDERED: SODIUM CHLOR 0.9% 1000 ML INJ 1,000 ML IV PRN (10:38)
[2017-11-26] MEDS ORDERED: SODIUM CHLOR 0.9% 1000 ML INJ 1,000 ML OTHER PRN ×2 (10:38)
--- NOTE | 2017-11-26 10:42 | PD.CONS ---
HPI Service Nephrology Consult Requested By Dr Hale Reason for Consult ESRD and HD Primary Care Physician Unknown History of Present Illness Patient is a 67-year-old male with past medical history significant for HTN, ESRD on HD, DM, and PVD who presents to the emergency department with complaints of right foot great toe wound as well as right foot lateral and heel wound. He states that his right toe issues originally began 3 months ago and it started off originally as a blister on the top of his big toe as well as a blister on the side of his right foot. Review of EMR, patient recently underwent right anterior tibial artery angioplasty by Dr. Leija on 11/19/17. Nephrology is consulted for ESRD and HD. He has a right chest wall permacath. His customs director is Dr. Abreu and his normal days are // and he missed yesterday because he was coming to the hospital. He has been on dialysis for about 3 months. (Yoli Reich) Past Family Social History Allergies: Coded Allergies: No Known Allergies (Unverified , 11/07/14) Past Medical History M HTN PVD ESRD on HD Dr. Abreu Past Surgical History Right arm Left femur back surgery Right subclavian perma cath Right anterior tibial artery angioplasty on 11/19/[address] Leija Active Ordered Medications Current Medications Medications (Trade) Dose Ordered Sig/Lia Route Start Time Stop Time Status Last Admin (NS Flush) 2 ml UNSCH PRN IV FLUSH 11/25/17 16:30 (NS Flush) 2 ml BID IV FLUSH 11/25/17 21:00 11/26/17 08:54 (Narcan Inj) 0.4 mg UNSCH PRN IV PUSH 11/25/17 16:30 Piperacillin Sod/ Tazobactam Sod 100 ml @ 200 mls/hr Q6H IV 11/25/17 20:00 11/26/17 08:53 (D50w (Vial) Inj) 50 ml UNSCH PRN IV PUSH 11/25/17 18:15 (Glucagon Inj) 1 mg UNSCH PRN OTHER 11/25/17 18:15 (NovoLOG SUPPLEMENTAL SCALE) 1 ACHS SLIDING SCALE SQ 11/25/17 21:00 11/25/17 21:04 Levofloxacin/ Dextrose 100 ml @ 100 mls/hr WITH DIALYSIS IV 11/27/17 19:00 Family History unknown both Social History Denies smoking or tobacco use Lives alone (Yoli Reich) Physical Exam Vital Signs Vital Signs Date Time Temp Pulse Resp B/P (MAP) Pulse Ox O2 Delivery O2 Flow Rate FiO2 11/26/17 08:03 97.3 77 18 148/67 (94) 97 11/26/17 08:00 Room Air 11/26/17 04:21 98.9 72 16 140/63 (88) 96 11/26/17 04:10 Room Air 11/26/17 00:00 Room Air 11/25/17 23:20 97.2 98 16 139/66 (90) 92 11/25/17 20:00 Room Air 11/25/17 19:52 97.7 71 16 181/81 (114) 100 11/25/17 17:30 97.3 74 20 201/88 (125) 100 11/25/17 16:18 96 11/25/17 15:17 96 Room Air 11/25/17 13:50 98.0 91 16 160/84 (109) 95 Physical Exam GENERAL: alert and oriented SKIN: Warm and dry. Right foot great toe partially missing, black or on top of toe. Right foot lateral aspect eschar, right heel eschar. HEAD: Normocephalic. EYES: No scleral icterus. No injection or drainage. NECK: Supple, trachea midline. No JVD or lymphadenopathy. CARDIOVASCULAR: Regular rate and rhythm without murmurs, gallops, or rubs. RESPIRATORY: Breath sounds equal bilaterally. No accessory muscle use. GASTROINTESTINAL: Abdomen soft, non-tender, nondistended. MUSCULOSKELETAL: No cyanosis, or edema. BACK: Nontender without obvious deformity. No CVA tenderness. Laboratory Laboratory Tests Test 11/25/17 14:10 11/26/17 04:50 11/26/17 09:08 White Blood Count 9.7 7.8 Red Blood Count 2.96 3.02 Hemoglobin 9.7 10.1 Hematocrit 29.1 29.4 Mean Corpuscular Volume 98.2 97.2 Mean Corpuscular Hemoglobin 32.6 33.4 Mean Corpuscular Hemoglobin Concent 33.2 34.4 Red Cell Distribution Width 14.4 14.1 Platelet Count 310 296 Mean Platelet Volume 7.6 7.3 Neutrophils (%) (Auto) 71.6 65.0 Lymphocytes (%) (Auto) 13.5 15.9 Monocytes (%) (Auto) 11.8 14.4 Eosinophils (%) (Auto) 2.1 3.7 Basophils (%) (Auto) 1.0 1.0 Neutrophils # (Auto) 7.0 5.0 Lymphocytes # (Auto) 1.3 1.2 Monocytes # (Auto) 1.1 1.1 Eosinophils # (Auto) 0.2 0.3 Basophils # (Auto) 0.1 0.1 CBC Comment DIFF FINAL DIFF FINAL Differential Comment Prothrombin Time 10.6 Prothromb Time International Ratio 1.0 Activated Partial Thromboplast Time 26.8 Blood Urea Nitrogen 89 87 Creatinine 10.41 10.54 Random Glucose 211 81 130 Calcium Level 11.0 10.4 Sodium Level 135 139 Potassium Level 4.6 4.6 Chloride Level 97 101 Carbon Dioxide Level 27.3 27.0 Anion Gap 11 11 Estimat Glomerular Filtration Rate 5 5 Date/Time Source Procedure Growth Status 11/25/17 16:05 Blood Peripheral Aerobic Blood Culture Pending Received 11/25/17 16:05 Blood Peripheral Anaerobic Blood Culture Pending Received 11/25/17 16:05 Wound Toe Gram Stain - Final Resulted 11/25/17 16:05 Wound Toe Wound Culture Pending Resulted (Yoli Reich) Result Diagram: 11/26/17 0450 11/26/17 0908 Imaging Last Impressions Foot X-Ray 11/25/17 0000 Signed Impressions: Service Date/Time: Saturday, November 25, 2017 14:23 - CONCLUSION: 1. There has been osseous destruction of the distal half of the first digit distal phalanx. This finding along with the adjacent wound is highly suspicious for osteomyelitis associated osseous destruction. 2. Severe small vessel arterial vascular calcification in a pattern seen in diabetic patients. Benjamín Harris MD (Yoli Reich) Assessment and Plan Problem List: (1) ESRD (end stage renal disease) ICD Codes: N18.6 - ESRD (end stage renal disease) Status: Acute Plan: ESRD on HD on MWF. Dialysis was missed yesterday. Has right chest wall permacath. Epogen with dialysis Plan for dialysis today and then will put him back on schedule for MWF (2) PVD (peripheral vascular disease) ICD Codes: I73.9 - Peripheral vascular disease, unspecified (3) Gangrene of toe of right foot ICD Codes: I96 - Gangrene, not elsewhere classified Plan: Dr Urbano managing (4) DM (diabetes mellitus) ICD Codes: E11.9 - DM (diabetes mellitus) Status: Acute Plan: Continue home medications (5) HTN (hypertension) ICD Codes: I10 - HTN (hypertension) Status: Acute Plan: continue home medications (Yoli Reich) Problem List: (1) ESRD (end stage renal disease) ICD Codes: N18.6 - ESRD (end stage renal disease) Status: Acute Plan: ESRD on HD on MWF. Dialysis was missed yesterday. Has right chest wall permacath. Epogen with dialysis Plan for dialysis today and then will put him back on schedule for MWF Patient seen and examined, agree with above. Calcium is elevated, check Po4 and PTH. Continue antibiotics. (2) PVD (peripheral vascular disease) ICD Codes: I73.9 - Peripheral vascular disease, unspecified (3) Gangrene of toe of right foot ICD Codes: I96 - Gangrene, not elsewhere classified Plan: Dr Urbano managing (4) DM (diabetes mellitus) ICD Codes: E11.9 - DM (diabetes mellitus) Status: Acute Plan: Continue home medications (5) HTN (hypertension) ICD Codes: I10 - HTN (hypertension) Status: Acute Plan: continue home medications (Chidi Tomas MD) Yoli Reich Nov 26, 2017 10:42 Chidi Tomas MD Nov 26, 2017 19:04
[2017-11-26] MEDS ORDERED: VANCOMYCIN INJ 1,000 MG in SODIUM CHLOR 0.9% 250 ML INJ 250 ML IV ONE (10:45)
[2017-11-26] MEDS ORDERED: MANNITOL 12.5 GM/50 ML VIAL IV PRN (10:45)
[2017-11-26] MEDS ORDERED: GENTAMICIN SULFATE 20 MG/2 ML VIAL OTHER PRN (10:45)
[2017-11-26] MEDS ORDERED: NITROGLYCERIN 0.4 MG SL 25 TABS/BTL SL PRN (10:45)
[2017-11-26] MEDS ORDERED: ONDANSETRON HCL 4 MG/2 ML VIAL IV PUSH PRN (10:45)
[2017-11-26] MEDS ORDERED: EPOETIN ALFA 10,000 UNITS/ML VIAL IV PUSH PRN (10:45)
[2017-11-26] MEDS ORDERED: cloNIDine HCL 0.1 MG TAB PO PRN (10:45)
[2017-11-26] MEDS ORDERED: diphenhydrAMINE HCL 25 MG CAP PO PRN (10:45)
[2017-11-26] MEDS ORDERED: ACETAMINOPHEN 325 MG TAB PO PRN (10:45)
[2017-11-26] MEDS ORDERED: SODIUM CHLORIDE 0.9% FLUSH 10 ML FLUSH IV FLUSH PRN (10:45)
[2017-11-26] MEDS ORDERED: HEPARIN SODIUM - IV 10,000 UNITS/10 ML VIAL PRN (10:45)
[2017-11-26] MEDS ORDERED: GELATIN 12 MM/7 MM FOAM TOP PRN (10:45)
[2017-11-26] MEDS ORDERED: HEPARIN SODIUM - IV 10,000 UNITS/10 ML VIAL IV FLUSH PRN (10:45)
[2017-11-26] MEDS ORDERED: ALBUMIN 25% INJ 100 ML IV PRN (10:45)
--- NOTE | 2017-11-26 10:57 | PD.CONS ---
History of Present Illness Service Infectious disease Consult Requested By Dr Hale Reason for Consult Evaluate patient with gangrene of the right big toe Primary Care Physician Unknown Diagnoses: History of Present Illness Patient seen and examined. Records reviewed. Patient is a 67-year-old male, with known history of peripheral vascular disease , end-stage renal disease, diabetes, presented to the hospital for evaluation of a right great toe wound. Patient stated that he's had problem with wounds on his right foot for the last 3 months. The one on the big toe started off as a blister, and he had noted some changes on it probably about a month ago. He had one hospitalization at [facility] and he was on antibiotic, but he signed out AMA. Patient was seen by vascular surgeon as an outpatient, and he underwent revascularization procedure on November 19, 2017. The right great toe was changing in color and it was getting very hard. Patient stated that it looked , so he clipped that part of his big toe. It bled for about a couple hours. He decided to go to the hospital to have it evaluated. He has not had any fever or chills or sweats. He denies any other significant GI or any urinary complaints or any respiratory complaint. Patient gets hemodialysis every Saturday and Saturday. He is afebrile. His WBC is normal. Infectious disease consultation has been requested to evaluate the patient. Review of Systems Constitutional: DENIES: Fever, Chills, Night Sweats Eyes: DENIES: Eye pain Ears, nose, mouth, throat: DENIES: Nasal discharge, Oral lesions, Throat pain Respiratory: DENIES: Cough, Shortness of breath Cardiovascular: DENIES: Chest pain, Palpitations, Lower Extremity Edema Gastrointestinal: DENIES: Abdominal pain, Constipation, Diarrhea, Nausea, Vomiting, Difficulty Swallowing Musculoskeletal: DENIES: Joint pain, Joint Swelling Integumentary: DENIES: Rash Neurologic: DENIES: Localized weakness Psychiatric: DENIES: Hallucinations Past Family Social History Allergies: Coded Allergies: No Known Allergies (Unverified , 11/07/14) Past Medical History DM HTN PVD ESRD on HD Dr. Abreu (for the past 3months) M/W/F ? MS at [facility] Past Surgical History Right arm Left femur back surgery Right perma cath Right anterior tibial artery angioplasty on 11/19/[address] Leija Active Ordered Medications Current Medications Medications (Trade) Dose Ordered Sig/Lia Route Start Time Stop Time Status Last Admin (NS Flush) 2 ml UNSCH PRN IV FLUSH 11/25/17 16:30 (NS Flush) 2 ml BID IV FLUSH 11/25/17 21:00 11/26/17 08:54 (Narcan Inj) 0.4 mg UNSCH PRN IV PUSH 11/25/17 16:30 Piperacillin Sod/ Tazobactam Sod 100 ml @ 200 mls/hr Q6H IV 11/25/17 20:00 11/26/17 08:53 (D50w (Vial) Inj) 50 ml UNSCH PRN IV PUSH 11/25/17 18:15 (Glucagon Inj) 1 mg UNSCH PRN OTHER 11/25/17 18:15 (NovoLOG SUPPLEMENTAL SCALE) 1 ACHS SLIDING SCALE SQ 11/25/17 21:00 11/25/17 21:04 Levofloxacin/ Dextrose 100 ml @ 100 mls/hr WITH DIALYSIS IV 11/27/17 19:00 Family History Noncontributory Social History Tobacco: Denies Alcohol: One beer every 6 months Illicit drug use: Denies Physical Exam Vital Signs Vital Signs Date Time Temp Pulse Resp B/P (MAP) Pulse Ox O2 Delivery O2 Flow Rate FiO2 11/26/17 08:03 97.3 77 18 148/67 (94) 97 11/26/17 08:00 Room Air 11/26/17 04:21 98.9 72 16 140/63 (88) 96 11/26/17 04:10 Room Air 11/26/17 00:00 Room Air 11/25/17 23:20 97.2 98 16 139/66 (90) 92 11/25/17 20:00 Room Air 11/25/17 19:52 97.7 71 16 181/81 (114) 100 11/25/17 17:30 97.3 74 20 201/88 (125) 100 11/25/17 16:18 96 11/25/17 15:17 96 Room Air 11/25/17 13:50 98.0 91 16 160/84 (109) 95 Physical Exam GENERAL: Patient is a well-nourished, well-developed male, awake and alert, not in respiratory distress. SKIN: Warm and dry. No generalized rash, no ecchymoses and no evidence of embolic lesions. HEAD: Atraumatic. Normocephalic. No temporal wasting, or tenderness. EYES: [place] conjunctiva. No petechia or hemorrhage. Pupils equal, round and reactive to light. Extraocular movements full and intact. No scleral icterus. No injection or drainage. EARS, NOSE AND THROAT: Nose without bleeding or purulent nasal discharge. No sinus tenderness. Mucous membranes pink and moist. No oral lesions noted. NECK: Trachea midline. Supple and not tender, no meningeal signs. Permacath site looks ok CARDIOVASCULAR: Regular rate and rhythm. No murmurs, rubs or gallops heard RESPIRATORY: Clear to auscultation. Breath sounds equal bilaterally. No rales , wheezing or rhonchi ABDOMEN: Soft, non-tender, nondistended. Bowel sounds present and normoactive. No guarding. No rebound. No organomegaly. EXTREMITIES: No clubbing, cyanosis, or edema. No calf tenderness. Well perfused and warm. LLE ok. RLE - has 2 black eschar, on on the heel and one lateral foot. His R big toe has open area of the distal aspect, black in color , with dark red color proximally, no erythema noted on the rest of his foot, no odor NEUROLOGICAL: Awake and alert. Cranial nerves grossly intact. Motor grossly within normal limits. PSYCHIATRIC: Normal affect, calm and cooperative. LINE: No evidence of infection Laboratory Laboratory Tests Test 11/25/17 14:10 11/26/17 04:50 11/26/17 09:08 White Blood Count 9.7 7.8 Red Blood Count 2.96 3.02 Hemoglobin 9.7 10.1 Hematocrit 29.1 29.4 Mean Corpuscular Volume 98.2 97.2 Mean Corpuscular Hemoglobin 32.6 33.4 Mean Corpuscular Hemoglobin Concent 33.2 34.4 Red Cell Distribution Width 14.4 14.1 Platelet Count 310 296 Mean Platelet Volume 7.6 7.3 Neutrophils (%) (Auto) 71.6 65.0 Lymphocytes (%) (Auto) 13.5 15.9 Monocytes (%) (Auto) 11.8 14.4 Eosinophils (%) (Auto) 2.1 3.7 Basophils (%) (Auto) 1.0 1.0 Neutrophils # (Auto) 7.0 5.0 Lymphocytes # (Auto) 1.3 1.2 Monocytes # (Auto) 1.1 1.1 Eosinophils # (Auto) 0.2 0.3 Basophils # (Auto) 0.1 0.1 CBC Comment DIFF FINAL DIFF FINAL Differential Comment Prothrombin Time 10.6 Prothromb Time International Ratio 1.0 Activated Partial Thromboplast Time 26.8 Blood Urea Nitrogen 89 87 Creatinine 10.41 10.54 Random Glucose 211 81 130 Calcium Level 11.0 10.4 Sodium Level 135 139 Potassium Level 4.6 4.6 Chloride Level 97 101 Carbon Dioxide Level 27.3 27.0 Anion Gap 11 11 Estimat Glomerular Filtration Rate 5 5 Date/Time Source Procedure Growth Status 11/25/17 16:05 Blood Peripheral Aerobic Blood Culture Pending Received 11/25/17 16:05 Blood Peripheral Anaerobic Blood Culture Pending Received 11/25/17 16:05 Wound Toe Gram Stain - Final Resulted 11/25/17 16:05 Wound Toe Wound Culture Pending Resulted Result Diagram: 11/26/17 0450 11/26/17 0908 Imaging RADIOLOGY STUDIES/FILMS REVIEWED Last Impressions Foot X-Ray 11/25/17 0000 Signed Impressions: Service Date/Time: Saturday, November 25, 2017 14:23 - CONCLUSION: 1. There has been osseous destruction of the distal half of the first digit distal phalanx. This finding along with the adjacent wound is highly suspicious for osteomyelitis associated osseous destruction. 2. Severe small vessel arterial vascular calcification in a pattern seen in diabetic patients. Benjamín Harris MD Assessment and Plan Assessment and Plan IMPRESSION Gangrene R big toe, with open wound distally, mild cellulitis - patient clipped the distal portion of his black toe PVD, has 2 other black eschar R foot - S/P revascularization 11/19/17 ESRD on HD MWF Known HTN and DM RECOMMENDATION To be evaluated by vascular and podiatry Needs amputation bug toe Give one dose of Vanco IV PO Levaquin Will stop other IV Abx Wound care for now until seen by podiatry Will not need any long course of Abx once amputation done Monitor progress I will follow along with you Thank you for this consultation Holli Arshad MD Nov 26, 2017 10:57
--- NOTE | 2017-11-26 11:38 | PD.VS.CON ---
History of Present Illness Chief Complaint: Pt w/ non healing R foot ulcerations Necrotic R 1st digit toe (great toe) Consult Requested by: History of Present Illness Mr. Solitario is a very pleasant 67 y.o., [place] male who is s/p R LE revascularization (R AT [employer]) 11/19/17 Pt w/ multiple necrotic ulcerations to his R foot (Heel, Lateral aspect of foot ) Pt arrived to the hospital with a chief complaint of worsening R foot wounds that have been present for a 3M Pt reported he clipped his R great toe with toe nail clippers several days ago which resulted in a partial R great toe amputation. Past/Family/Social History Past Medical History DM HTN PVD ESRD on HD- (M/W/F) Past Surgical History Right arm Left femur back surgery Right subclavian perma cath Right anterior tibial artery angioplasty on 11/19/[address] Leija Social History Denied Smoking Denied illicit drug usage ETOH- Socially Home Medications Reported Medications Glipizide (Glipizide) 5 Mg Tab, 5 MG PO DAILY for Blood Sugar Management, #30 TAB 0 Refills Take 30 minutes before a meal 11/19/17 Clopidogrel (Plavix) 75 Mg Tab, 75 MG PO DAILY for Blood Clot Prevention, #30 TAB 0 Refills 11/19/17 Bumetanide (Bumetanide) 2 Mg Tab, 2 MG PO DAILY, TAB 0 Refills 11/19/17 Atorvastatin (Lipitor) 10 Mg Tab, 10 MG PO HS for Cholesterol Management, #30 TAB 0 Refills 11/19/[address] (Aspirin DR) 81 Mg Tabdr, 81 MG PO DAILY, TAB 0 Refills 11/19/17 Amlodipine-Valsartan (Amlodipine-Valsartan) 10-160 Mg Tab, 1 TAB PO DAILY for Blood Pressure Management, #30 TAB 0 Refills 11/19/17 Coded Allergies: No Known Allergies (Unverified , 11/07/14) Review of Systems Constitutional: DENIES: Fever, Chills Integumentary: COMPLAINS OF: Abnormal pigmentation (Necrotic RIGHT foot ulcerations ) Physical Exam Vitals/I&O Date Time Temp Pulse Resp B/P (MAP) Pulse Ox O2 Delivery O2 Flow Rate FiO2 11/26/17 08:03 97.3 77 18 148/67 (94) 97 11/26/17 08:00 Room Air 2/27/18 04:21 98.9 72 16 140/63 (88) 96 11/26/17 04:10 Room Air 11/26/17 00:00 Room Air 11/25/17 23:20 97.2 98 16 139/66 (90) 92 11/25/17 20:00 Room Air 11/25/17 19:52 97.7 71 16 181/81 (114) 100 11/25/17 17:30 97.3 74 20 201/88 (125) 100 11/25/17 16:18 96 11/25/17 15:17 96 Room Air 11/25/17 13:50 98.0 91 16 160/84 (109) 95 11/26/17 11/26/17 11/26/17 07:00 15:00 23:00 Intake Total 580 ml 100 ml Output Total 900 ml Balance -320 ml 100 ml Neuro: GCS 15 A&OX3 CN 2-12 intact Neck: No JVD distention Heart: RRR Lungs: CTA Abdomen: S/NT Vascular: Palpable R Femoral Palpable L Femoral Palpable L DP Non palpable R DP/PT Monophasic R DP/PT heard via Doppler Pt w/ a necrotic R great toe with bone exposure present (partially amputated) Necrotic ulceration to Lateral aspect of R Foot/Heel noted Laboratory Tests Test 11/25/17 14:10 11/26/17 04:50 11/26/17 09:08 White Blood Count 9.7 7.8 Red Blood Count 2.96 3.02 Hemoglobin 9.7 10.1 Hematocrit 29.1 29.4 Mean Corpuscular Volume 98.2 97.2 Mean Corpuscular Hemoglobin 32.6 33.4 Mean Corpuscular Hemoglobin Concent 33.2 34.4 Red Cell Distribution Width 14.4 14.1 Platelet Count 310 296 Mean Platelet Volume 7.6 7.3 Neutrophils (%) (Auto) 71.6 65.0 Lymphocytes (%) (Auto) 13.5 15.9 Monocytes (%) (Auto) 11.8 14.4 Eosinophils (%) (Auto) 2.1 3.7 Basophils (%) (Auto) 1.0 1.0 Neutrophils # (Auto) 7.0 5.0 Lymphocytes # (Auto) 1.3 1.2 Monocytes # (Auto) 1.1 1.1 Eosinophils # (Auto) 0.2 0.3 Basophils # (Auto) 0.1 0.1 CBC Comment DIFF FINAL DIFF FINAL Differential Comment Prothrombin Time 10.6 Prothromb Time International Ratio 1.0 Activated Partial Thromboplast Time 26.8 Blood Urea Nitrogen 89 87 Creatinine 10.41 10.54 Random Glucose 211 81 130 Calcium Level 11.0 10.4 Sodium Level 135 139 Potassium Level 4.6 4.6 Chloride Level 97 101 Carbon Dioxide Level 27.3 27.0 Anion Gap 11 11 Estimat Glomerular Filtration Rate 5 5 Date/Time Source Procedure Growth Status 11/25/17 16:05 Blood Peripheral Aerobic Blood Culture Pending Received 11/25/17 16:05 Blood Peripheral Anaerobic Blood Culture Pending Received 11/25/17 16:05 Wound Toe Gram Stain - Final Resulted 11/25/17 16:05 Wound Toe Wound Culture Pending Resulted Last 48 hours Impressions Foot X-Ray 11/25/17 0000 Signed Impressions: Service Date/Time: Saturday, November 25, 2017 14:23 - CONCLUSION: 1. There has been osseous destruction of the distal half of the first digit distal phalanx. This finding along with the adjacent wound is highly suspicious for osteomyelitis associated osseous destruction. 2. Severe small vessel arterial vascular calcification in a pattern seen in diabetic patients. Benjamín Harris MD Assessment and Plan Assessment: (1) PVD (peripheral vascular disease) (2) Gangrene of toe of right foot Plan 67/M s/p R LE revascularization presenting w/ worsening necrotic R Foot wounds and great toe Pt w/ non palpable R DP/PT LE warm w/ motor intact Plan Discussed w/ pt R LE angiogram for revascularization Potentially early next week Veronica Locke NP [facility] [phone] Veronica Locke Nov 26, 2017 11:38
[2017-11-26] MEDS ORDERED: VANCOMYCIN INJ 1,000 MG in SODIUM CHLOR 0.9% 250 ML INJ 250 ML IV SCH (11:45)
[2017-11-26 12:03] VITALS: BP 139/66; PULSE 65; RESP 18; TEMP 98; O2SAT 96
[2017-11-26 12:16] VITALS: O2SAT 97
[2017-11-26] MEDS ORDERED: METO1TAB9 PO (16:40)
[2017-11-26] MEDS ORDERED: CALC667C PO (16:40)
[2017-11-26] MEDS ORDERED: GABA300C5 PO (16:40)
[2017-11-26 17:26] VITALS: O2SAT 97
--- NOTE | 2017-11-26 18:39 | HHI.PR ---
Subjective Remarks Follow-up for PVD, right great toe gangrene, ESRD. Patient is currently doing well. No fever or chills. Objective Vitals Vital Signs Date Time Temp Pulse Resp B/P (MAP) Pulse Ox O2 Delivery O2 Flow Rate FiO2 11/26/17 17:26 97 21 11/26/17 12:16 97 21 11/26/17 12:03 98.0 65 18 139/66 (90) 96 11/26/17 08:03 97.3 77 18 148/67 (94) 97 11/26/17 08:00 Room Air 11/26/17 04:21 98.9 72 16 140/63 (88) 96 11/26/17 04:10 Room Air 11/26/17 00:00 Room Air 11/25/17 23:20 97.2 98 16 139/66 (90) 92 11/25/17 20:00 Room Air 11/25/17 19:52 97.7 71 16 181/81 (114) 100 I/O 11/25/17 11/25/17 11/25/17 11/26/17 11/26/17 11/26/17 07:00 15:00 23:00 07:00 15:00 23:00 Intake Total 250 ml 580 ml 100 ml Output Total 900 ml 4000 ml Balance 250 ml -320 ml 100 ml -4000 ml Intake Oral 480 ml IV Total 250 ml 100 ml 100 ml Output Urine Total 900 ml Hemodialysis 4000 ml # Bowel Movements 0 Result Diagram: 11/26/17 0450 11/26/17 0908 Imaging Last Impressions Foot X-Ray 11/25/17 0000 Signed Impressions: Service Date/Time: Saturday, November 25, 2017 14:23 - CONCLUSION: 1. There has been osseous destruction of the distal half of the first digit distal phalanx. This finding along with the adjacent wound is highly suspicious for osteomyelitis associated osseous destruction. 2. Severe small vessel arterial vascular calcification in a pattern seen in diabetic patients. Benjamín Harris MD Objective Remarks GENERAL: Alert, oriented 3, NAD. SKIN: Warm and dry. HEAD: Normocephalic. EYES: No scleral icterus. No injection or drainage. NECK: Supple, trachea midline. No JVD or lymphadenopathy. CARDIOVASCULAR: Regular rate and rhythm without murmurs, gallops, or rubs. RESPIRATORY: Breath sounds equal bilaterally. No accessory muscle use. GASTROINTESTINAL: Abdomen soft, non-tender, nondistended. MUSCULOSKELETAL: No cyanosis, or edema. Right great toe gangrene noted. BACK: Nontender without obvious deformity. No CVA tenderness. Procedures None A/P Problem List: (1) Gangrene of toe of right foot ICD Code: I96 - Gangrene, not elsewhere classified (2) ESRD (end stage renal disease) ICD Code: N18.6 - ESRD (end stage renal disease) Status: Acute (3) PVD (peripheral vascular disease) ICD Code: I73.9 - Peripheral vascular disease, unspecified (4) DM (diabetes mellitus) ICD Code: E11.9 - DM (diabetes mellitus) Status: Acute Assessment and Plan 67-year-old male with past medical history significant for HTN, ESRD on HD, DM, and PVD who presents to the emergency department with complaints of right foot great toe wound as well as right foot lateral and heel wound. Right foot great toe gangrene Right heel, right lateral foot eschars PVD -Right foot x-ray --> osseous destruction of the distal half of the first digit distal phalanx. Findings are highly suspicious for osteomyelitis associated osseous destruction. Severe small vessel arterial vascular calcification in pattern seen in diabetic patients. -Blood cultures No Growth so far. Wound culture no growth. -ID consulted. Zosyn discontinued. Patient is now on PO Levaquin and IV Vancomycin to be given during Dialysis. Discussed with ID and Nephrology. -Podiatry consult pending. Vascular surgery evaluated patient will consider right lower extremity angiogram for revascularization ESRD on HD -Hemodialysis Saturday, Saturday, Saturday. Patient reports not having HD on 11/25/2017. CMP reviewed, creatinine 10.41, potassium 4.6 -Discussed with nephrology. Patient will undergo dialysis today. DM -Diabetic diet, Accu-Cheks with insulin sliding scale -Medication includes glipizide. If needed will consider long acting insulin while in the hospital. Full code. Will start Heparin 5000 SQ BID for DVT Prophylaxis. Elidia Garcia DO Nov 26, 2017 6:38 pm
[2017-11-26] MEDS: LEVOFLOXACIN 250 MG TAB PO SCH (19:01)
--- NOTE | 2017-11-26 20:17 | PD.CONS ---
History of Present Illness Service Foot and ankle surgery/podiatry Consult Requested By Reason for Consult Right hallux osteomyelitis Primary Care Physician Unknown Diagnoses: History of Present Illness Podiatry consulted for this 67-year-old male with known history of peripheral vascular disease, end-stage renal disease on hemodialysis, diabetes for right hallux wound/osteomyelitis. Patient states she has had a problem with wounds in his right foot for the past 3 months states the one on the big toe started off the blister and he noticed significant change to it about a month ago. Patient states he is previously seen at [facility] but he signed out AMA. Patient was revascularized November 19, 2017. Patient tried to clip off the necrotic tissue of his big toe which cause it to bleed and he proceeded to the hospital to have it evaluated. Patient denies any nausea vomiting fevers chills or sweats. Review of Systems Constitutional: DENIES: Fatigue, Fever Respiratory: DENIES: Cough, Shortness of breath Cardiovascular: DENIES: Chest pain, Syncope Psychiatric: DENIES: Anxiety, Confusion Past Family Social History Allergies: Coded Allergies: No Known Allergies (Unverified , 11/07/14) Past Medical History As dictated in HPI Active Ordered Medications Current Medications Medications (Trade) Dose Ordered Sig/Lia Route Start Time Stop Time Status Last Admin (NS Flush) 2 ml UNSCH PRN IV FLUSH 11/25/17 16:30 (NS Flush) 2 ml BID IV FLUSH 11/25/17 21:00 11/26/17 08:54 (Narcan Inj) 0.4 mg UNSCH PRN IV PUSH 11/25/17 16:30 (D50w (Vial) Inj) 50 ml UNSCH PRN IV PUSH 11/25/17 18:15 (Glucagon Inj) 1 mg UNSCH PRN OTHER 11/25/17 18:15 (NovoLOG SUPPLEMENTAL SCALE) 1 ACHS SLIDING SCALE SQ 11/25/17 21:00 11/26/17 19:30 Sodium Chloride 1,000 ml @ 0 mls/hr Q0M PRN OTHER 11/26/17 10:38 (Heparin Inj) 8,000 units UNSCH PRN IV FLUSH 11/26/17 10:45 Sodium Chloride 1,000 ml @ 200 mls/hr Q5H PRN IV 11/26/17 10:38 Sodium Chloride 1,000 ml @ 0 mls/hr Q0M PRN OTHER 11/26/17 10:38 (Mannitol Inj) 12.5 gm UNSCH PRN IV 11/26/17 10:45 Albumin Human 100 ml @ 60 mls/hr UNSCH PRN IV 11/26/17 10:45 (NS Flush) 5 ml UNSCH PRN IV FLUSH 11/26/17 10:45 (Heparin Inj) UNSCH PRN .XX 11/26/17 10:45 11/26/17 17:09 (Gentamicin Inj) 20 mg UNSCH PRN OTHER 11/26/17 10:45 11/26/17 17:09 (Zofran Inj) 4 mg UNSCH PRN IV PUSH 11/26/17 10:45 (Tylenol) 650 mg UNSCH PRN PO 11/26/17 10:45 (Benadryl) 25 mg UNSCH PRN PO 11/26/17 10:45 (Nitrostat Sl) 0.4 mg UNSCH PRN SL 11/26/17 10:45 (Catapres) 0.1 mg UNSCH PRN PO 11/26/17 10:45 (Epogen Inj) 4,000 units UNSCH PRN IV PUSH 11/26/17 10:45 (Gelfoam 12 Mm/7 Mm Top) 1 foam UNSCH PRN TOP 11/26/17 10:45 (Levaquin) 250 mg DAILY PO 11/26/17 18:00 11/26/17 19:01 Vancomycin HCl 1000 mg/Sodium Chloride 250 ml @ 250 mls/hr WITH DIALYSIS IV 11/26/17 11:45 (Heparin Inj) 5,000 units Q12HR SQ 11/26/17 21:00 Physical Exam Vital Signs Vital Signs Date Time Temp Pulse Resp B/P (MAP) Pulse Ox O2 Delivery O2 Flow Rate FiO2 11/26/17 17:26 97 21 11/26/17 12:16 97 21 11/26/17 12:03 98.0 65 18 139/66 (90) 96 11/26/17 08:03 97.3 77 18 148/67 (94) 97 11/26/17 08:00 Room Air 11/26/17 04:21 98.9 72 16 140/63 (88) 96 11/26/17 04:10 Room Air 11/26/17 00:00 Room Air 11/25/17 23:20 97.2 98 16 139/66 (90) 92 Physical Exam GENERAL: This is a well-nourished, well-developed patient, in no apparent distress. SKIN: Hallux necrosis, eschar plantar heel, eschar fifth met base right lower extremity HEAD: Atraumatic. EYES: Pupils equal round and reactive. ENT: Airway patent. NECK: Trachea midline. RESPIRATORY: Nonlabored breathing. MUSCULOSKELETAL:. Negative Homans sign bilaterally. NEUROLOGICAL: Awake and alert. Normal speech. Lower extremity physical exam: Vascular: Dorsalis pedis nonpalpable, posterior tibial nonpalpable. Capillary refill time within normal limits to digits present to bilateral foot. Edema present right foot Neuro: Gross sensation intact to bilateral lower extremity. Pinpoint sensation decreased. No hyperalgesia noted to bilateral lower extremity Dermatology: Right hallux partially amputated with exposed bone and necrosis noted to mid distal phalanx and proximal phalanx. Plantar heel ulceration noted with necrotic eschar base and fluctuance noted no purulent drainage upon compression, no probe to bone. Right fifth metatarsal head eschar present with hyperkeratotic skin border no purulent drainage upon compression noted from the wound. Musculoskeletal: Tender to palpation to ulcerations present to right foot. Laboratory Laboratory Tests Test 11/26/17 04:50 11/26/17 09:08 White Blood Count 7.8 Red Blood Count 3.02 Hemoglobin 10.1 Hematocrit 29.4 Mean Corpuscular Volume 97.2 Mean Corpuscular Hemoglobin 33.4 Mean Corpuscular Hemoglobin Concent 34.4 Red Cell Distribution Width 14.1 Platelet Count 296 Mean Platelet Volume 7.3 Neutrophils (%) (Auto) 65.0 Lymphocytes (%) (Auto) 15.9 Monocytes (%) (Auto) 14.4 Eosinophils (%) (Auto) 3.7 Basophils (%) (Auto) 1.0 Neutrophils # (Auto) 5.0 Lymphocytes # (Auto) 1.2 Monocytes # (Auto) 1.1 Eosinophils # (Auto) 0.3 Basophils # (Auto) 0.1 CBC Comment DIFF FINAL Differential Comment Blood Urea Nitrogen 87 Creatinine 10.54 Random Glucose 81 130 Calcium Level 10.4 Sodium Level 139 Potassium Level 4.6 Chloride Level 101 Carbon Dioxide Level 27.0 Anion Gap 11 Estimat Glomerular Filtration Rate 5 Date/Time Source Procedure Growth Status 11/25/17 16:05 Blood Peripheral Aerobic Blood Culture - Preliminary NO GROWTH IN 1 DAY Resulted 11/25/17 16:05 Blood Peripheral Anaerobic Blood Culture - Preliminary NO GROWTH IN 1 DAY Resulted 11/25/17 16:05 Wound Toe Gram Stain - Final Resulted 11/25/17 16:05 Wound Toe Wound Culture - Preliminary NO GROWTH IN 24 HOURS. Resulted Result Diagram: 11/26/17 0450 11/26/17 0908 Imaging Last Impressions Foot X-Ray 11/25/17 0000 Signed Impressions: Service Date/Time: Saturday, November 25, 2017 14:23 - CONCLUSION: 1. There has been osseous destruction of the distal half of the first digit distal phalanx. This finding along with the adjacent wound is highly suspicious for osteomyelitis associated osseous destruction. 2. Severe small vessel arterial vascular calcification in a pattern seen in diabetic patients. Benjamín Harris MD Assessment and Plan Assessment and Plan 67-year-old male with right hallux necrosis and exposed bone, right plantar heel eschar, right fifth metatarsal head eschar Patient examined and evaluated with all questions answered Appreciate vascular no plan for revascularization early next week Would prefer to wait until revascularization is performed prior to surgical intervention from podiatry; will discuss with vascular surgery Continue IV antibiotics MRI ordered to evaluate extent of osteomyelitis to hallux Wound care orders to consist of Betadine to right hallux, Santyl and moist to dry dressing to plantar heel eschar as well as fifth metatarsal head eschar We will follow patient while in-house, will plan on surgical intervention on this admission Nesha Beltran DPM Nov 26, 2017 20:17
[2017-11-26 21:04] VITALS: BP 145/67; PULSE 72; RESP 16; TEMP 97.6; O2SAT 98
[2017-11-26] MEDS: COLLAGENASE OINT 30 GM TUBE TOPICAL SCH (22:04)
[2017-11-26] MEDS: HEPARIN SODIUM - SQ 10,000 UNITS/ML VIAL SQ SCH (22:05)
[2017-11-27] VITALS (9 sets, daily range): BP systolic 112–136; BP diastolic 57–65; PULSE 74–85; RESP 14–20; TEMP 96.3–98.6; O2SAT 96–99
[2017-11-27] MEDS: INSULIN ASPART SUPPLEMENTAL SCALE SQ SCH ×4 (08:00→21:46)
[2017-11-27] MEDS: HEPARIN SODIUM - SQ 10,000 UNITS/ML VIAL SQ SCH ×2 (09:07→20:37)
[2017-11-27] MEDS: SODIUM CHLORIDE 0.9% FLUSH 10 ML FLUSH IV FLUSH SCH ×2 (09:08→20:36)
[2017-11-27] MEDS: LEVOFLOXACIN 250 MG TAB PO SCH (09:08)
[2017-11-27] MEDS: COLLAGENASE OINT 30 GM TUBE TOPICAL SCH (09:09)
--- NOTE | 2017-11-27 10:00 | HHI.IDPN ---
Subjective Subjective Remarks Patient is a 67-year-old male, with known history of peripheral vascular disease , end-stage renal disease, diabetes, presented to the hospital for evaluation of a right great toe wound. Patient stated that he's had problem with wounds on his right foot for the last 3 months. The one on the big toe started off as a blister, and he had noted some changes on it probably about a month ago. He had one hospitalization at [facility] and he was on antibiotic, but he signed out AMA. Patient was seen by vascular surgeon as an outpatient, and he underwent revascularization procedure on November 19, 2017. The right great toe was changing in color and it was getting very hard. Patient stated that it looked , so he clipped that part of his big toe. It bled for about a couple hours. He decided to go to the hospital to have it evaluated. He has not had any fever or chills or sweats. He denies any other significant GI or any urinary complaints or any respiratory complaint. Patient gets hemodialysis every Saturday and Saturday. He is afebrile. His WBC is normal. Infectious disease consultation has been requested to evaluate the patient. Notes reviewed Temps ok Had HD yesterday Vascular notes reviewed Antibiotics Current Medications Medications (Trade) Dose Ordered Sig/Lia Route Start Time Stop Time Status Last Admin (NS Flush) 2 ml UNSCH PRN IV FLUSH 11/25/17 16:30 (NS Flush) 2 ml BID IV FLUSH 11/25/17 21:00 11/27/17 09:08 (Narcan Inj) 0.4 mg UNSCH PRN IV PUSH 11/25/17 16:30 (D50w (Vial) Inj) 50 ml UNSCH PRN IV PUSH 11/25/17 18:15 (Glucagon Inj) 1 mg UNSCH PRN OTHER 11/25/17 18:15 (NovoLOG SUPPLEMENTAL SCALE) 1 ACHS SLIDING SCALE SQ 11/25/17 21:00 11/26/17 22:05 Sodium Chloride 1,000 ml @ 0 mls/hr Q0M PRN OTHER 11/26/17 10:38 (Heparin Inj) 8,000 units UNSCH PRN IV FLUSH 11/26/17 10:45 Sodium Chloride 1,000 ml @ 200 mls/hr Q5H PRN IV 11/26/17 10:38 Sodium Chloride 1,000 ml @ 0 mls/hr Q0M PRN OTHER 11/26/17 10:38 (Mannitol Inj) 12.5 gm UNSCH PRN IV 11/26/17 10:45 Albumin Human 100 ml @ 60 mls/hr UNSCH PRN IV 11/26/17 10:45 (NS Flush) 5 ml UNSCH PRN IV FLUSH 11/26/17 10:45 (Heparin Inj) UNSCH PRN .XX 11/26/17 10:45 11/26/17 17:09 (Gentamicin Inj) 20 mg UNSCH PRN OTHER 11/26/17 10:45 11/26/17 17:09 (Zofran Inj) 4 mg UNSCH PRN IV PUSH 11/26/17 10:45 (Tylenol) 650 mg UNSCH PRN PO 11/26/17 10:45 (Benadryl) 25 mg UNSCH PRN PO 11/26/17 10:45 (Nitrostat Sl) 0.4 mg UNSCH PRN SL 11/26/17 10:45 (Catapres) 0.1 mg UNSCH PRN PO 11/26/17 10:45 (Epogen Inj) 4,000 units UNSCH PRN IV PUSH 11/26/17 10:45 (Gelfoam 12 Mm/7 Mm Top) 1 foam UNSCH PRN TOP 11/26/17 10:45 (Levaquin) 250 mg DAILY PO 11/26/17 18:00 11/27/17 09:08 Vancomycin HCl 1000 mg/Sodium Chloride 250 ml @ 250 mls/hr WITH DIALYSIS IV 11/26/17 11:45 (Heparin Inj) 5,000 units Q12HR SQ 11/26/17 21:00 11/27/17 09:07 (Santyl Oint) 1 applic DAILY TOPICAL 11/26/17 20:30 11/27/17 09:09 Lines PIV Permacath Past Medical History DM HTN PVD ESRD on HD Dr. Abreu (for the past 3months) M/W/F ? [place] at [facility] Past Surgical History Right arm Left femur back surgery Right perma cath Right anterior tibial artery angioplasty on 11/19/[address] Leija Allergies: Coded Allergies: No Known Allergies (Unverified , 11/07/14) Objective . Vital Signs Date Time Temp Pulse Resp B/P (MAP) Pulse Ox O2 Delivery O2 Flow Rate FiO2 11/27/17 09:56 96 11/27/17 08:04 98.1 74 17 112/58 (76) 96 11/27/17 04:58 98.2 85 14 122/65 (84) 98 11/27/17 04:00 Room Air 11/27/17 00:44 98.3 79 14 122/65 (84) 96 11/27/17 00:00 Room Air 11/26/17 21:04 97.6 72 16 145/67 (93) 98 11/26/17 20:00 Room Air 11/26/17 17:26 97 21 11/26/17 12:16 97 21 11/26/17 12:03 98.0 65 18 139/66 (90) 96 . Laboratory Tests Test 11/25/17 14:10 11/26/17 04:50 White Blood Count 9.7 TH/MM3 7.8 TH/MM3 Red Blood Count 2.96 MIL/MM3 3.02 MIL/MM3 Hemoglobin 9.7 GM/DL 10.1 GM/DL Hematocrit 29.1 % 29.4 % Mean Corpuscular Volume 98.2 FL 97.2 FL Mean Corpuscular Hemoglobin 32.6 PG 33.4 PG Mean Corpuscular Hemoglobin Concent 33.2 % 34.4 % Red Cell Distribution Width 14.4 % 14.1 % Platelet Count 310 TH/MM3 296 TH/MM3 Mean Platelet Volume 7.6 FL 7.3 FL Neutrophils (%) (Auto) 71.6 % 65.0 % Lymphocytes (%) (Auto) 13.5 % 15.9 % Monocytes (%) (Auto) 11.8 % 14.4 % Eosinophils (%) (Auto) 2.1 % 3.7 % Basophils (%) (Auto) 1.0 % 1.0 % Neutrophils # (Auto) 7.0 TH/MM3 5.0 TH/MM3 Lymphocytes # (Auto) 1.3 TH/MM3 1.2 TH/MM3 Monocytes # (Auto) 1.1 TH/MM3 1.1 TH/MM3 Eosinophils # (Auto) 0.2 TH/MM3 0.3 TH/MM3 Basophils # (Auto) 0.1 TH/MM3 0.1 TH/MM3 CBC Comment DIFF FINAL DIFF FINAL Differential Comment Laboratory Tests Test 11/25/17 14:10 11/26/17 04:50 11/26/17 09:08 11/27/17 05:50 Blood Urea Nitrogen 89 MG/DL 87 MG/DL Creatinine 10.41 MG/DL 10.54 MG/DL Random Glucose 211 MG/DL 81 MG/DL 130 MG/DL Calcium Level 11.0 MG/DL 10.4 MG/DL Sodium Level 135 MEQ/L 139 MEQ/L Potassium Level 4.6 MEQ/L 4.6 MEQ/L Chloride Level 97 MEQ/L 101 MEQ/L Carbon Dioxide Level 27.3 MEQ/L 27.0 MEQ/L Anion Gap 11 MEQ/L 11 MEQ/L Estimat Glomerular Filtration Rate 5 ML/MIN 5 ML/MIN Phosphorus Level 4.3 MG/DL Parathyroid Hormone (Intact) 12.8 PG/ML Microbiology Date/Time Source Procedure Growth Status 11/25/17 16:05 Blood Peripheral Aerobic Blood Culture - Preliminary NO GROWTH IN 1 DAY Resulted 11/25/17 16:05 Blood Peripheral Anaerobic Blood Culture - Preliminary NO GROWTH IN 1 DAY Resulted 11/25/17 16:00 Blood Peripheral Aerobic Blood Culture - Preliminary NO GROWTH IN 1 DAY Resulted 11/25/17 16:00 Blood Peripheral Anaerobic Blood Culture - Preliminary NO GROWTH IN 1 DAY Resulted 11/25/17 16:05 Wound Toe Gram Stain - Final Resulted 11/25/17 16:05 Wound Toe Wound Culture - Preliminary NO GROWTH IN 24 HOURS. Resulted Imaging Last Impressions Foot X-Ray 11/25/17 0000 Signed Impressions: Service Date/Time: Saturday, November 25, 2017 14:23 - CONCLUSION: 1. There has been osseous destruction of the distal half of the first digit distal phalanx. This finding along with the adjacent wound is highly suspicious for osteomyelitis associated osseous destruction. 2. Severe small vessel arterial vascular calcification in a pattern seen in diabetic patients. Benjamín Harris MD Physical Exam GENERAL: awake and alert, not in respiratory distress. SKIN: Warm and dry. No generalized rash, no ecchymoses and no evidence of embolic lesions. HEAD: Atraumatic. Normocephalic. No temporal wasting, or tenderness. EYES: Orange conjunctiva. No petechia or hemorrhage. Pupils equal, round and reactive to light. Extraocular movements full and intact. No scleral icterus. No injection or drainage. EARS, NOSE AND THROAT: Nose without bleeding or purulent nasal discharge. No sinus tenderness. Mucous membranes pink and moist. No oral lesions noted. NECK: Trachea midline. Supple and not tender, no meningeal signs. Permacath site looks ok CARDIOVASCULAR: Regular rate and rhythm. No murmurs, rubs or gallops heard RESPIRATORY: Clear to auscultation. Breath sounds equal bilaterally. No rales , wheezing or rhonchi ABDOMEN: Soft, non-tender, nondistended. Bowel sounds present and normoactive. No guarding. No rebound. No organomegaly. EXTREMITIES: No clubbing, cyanosis, or edema. No calf tenderness. Well perfused and warm. LLE ok. RLE - has 2 black eschar, on on the heel and one lateral foot. His R big toe has open area of the distal aspect, black in color , with dark red color proximally, no erythema noted on the rest of his foot, no odor NEUROLOGICAL: Non-focal PSYCHIATRIC: Normal affect, calm and cooperative. LINE: No evidence of infection Assessment & Plan Remarks IMPRESSION Gangrene R big toe, with open wound distally, mild cellulitis - patient clipped the distal portion of his black toe PVD, has 2 other black eschar R foot - S/P revascularization 11/19/17 ESRD on HD MWF Known HTN and DM RECOMMENDATION revascularization planned for next week Needs amputation bug toe Getting IV Vanco Continue PO Levaquin Wound care for now until seen by podiatry Will not need any long course of Abx once amputation done Monitor progress I will be off 11/28-12/01 Other ID MD available if needed in my absence Holli Arshad MD Nov 27, 2017 10:00
--- NOTE | 2017-11-27 11:11 | HHI.NPPN ---
Subjective History of Present Illness Patient is a 67-year-old male with past medical history significant for HTN, ESRD on HD, DM, and PVD who presents to the emergency department with complaints of right foot great toe wound as well as right foot lateral and heel wound. He states that his right toe issues originally began 3 months ago and it started off originally as a blister on the top of his big toe as well as a blister on the side of his right foot. Review of EMR, patient recently underwent right anterior tibial artery angioplasty by Dr. Leija on 11/19/17. Nephrology is consulted for ESRD and HD. He has a right chest wall permacath. His renewal specialist is Dr. Abreu and his normal days are // and he missed yesterday because he was coming to the hospital. He has been on dialysis for about 3 months. Additional Remarks Patient is resting comfortably. No SOB. Plan for MRI on foot today to evaluate extent of osteomyelitis (Yoli Reich) Review of Systems Respiratory Respiratory Remarks No SOB (Yoli Reich) Cardiovascular Cardiac Remarks NO CP (Yoli Reich) Gastrointestinal GI Remarks No abdominal pain (Yoli Reich) Objective Data Data Vital Signs Date Time Temp Pulse Resp B/P (MAP) Pulse Ox O2 Delivery O2 Flow Rate FiO2 11/27/17 09:56 96 11/27/17 08:04 98.1 74 17 112/58 (76) 96 11/27/17 04:58 98.2 85 14 122/65 (84) 98 11/27/17 04:00 Room Air 11/27/17 00:44 98.3 79 14 122/65 (84) 96 11/27/17 00:00 Room Air 11/26/17 21:04 97.6 72 16 145/67 (93) 98 11/26/17 20:00 Room Air 11/26/17 17:26 97 21 11/26/17 12:16 97 21 11/26/17 12:03 98.0 65 18 139/66 (90) 96 (Yoli Reich) -: 11/26/17 0450 11/26/17 0908 Imaging Last Impressions Foot X-Ray 11/25/17 0000 Signed Impressions: Service Date/Time: Saturday, November 25, 2017 14:23 - CONCLUSION: 1. There has been osseous destruction of the distal half of the first digit distal phalanx. This finding along with the adjacent wound is highly suspicious for osteomyelitis associated osseous destruction. 2. Severe small vessel arterial vascular calcification in a pattern seen in diabetic patients. Benjamín Harris MD (GellermannYoli M. EX ASSISTANT/PROGRAM DIRECTOR) Physical Exam General Appearance: Well Nourished, No Acute Distress, Comfortable (Gellermann,Yoli M. EX ASSISTANT/PROGRAM DIRECTOR) Eyes Eye Exam: Pupils Equal (Gellermann,Yoli M. EX ASSISTANT/PROGRAM DIRECTOR) Throat Throat Exam: Oral Mucosa [place] & Moist (Gellermann,Yoli M. EX ASSISTANT/PROGRAM DIRECTOR) Pulmonary Resp Exam: Clear Bilaterally, Breath Sounds Equal, No Distress (Gellermann,Yoli M. EX ASSISTANT/PROGRAM DIRECTOR) Cardiology CV Exam: Regular, Normal Sinus Rhythm, Murmur (GellermannYoli M. EX ASSISTANT/PROGRAM DIRECTOR) Gastrointestinal/Abdomen GI Exam: Soft, Non-Tender, Bowel Sounds Present (GellermannYoli M. EX ASSISTANT/PROGRAM DIRECTOR) Genitourinary Exam: Flank Non-Tender (GellermannYoli M. EX ASSISTANT/PROGRAM DIRECTOR) Integumentary Skin Exam: Clear, Warm, Dry (Gellermann,Yoli M. EX ASSISTANT/PROGRAM DIRECTOR) Extremeties Extremities Exam: No Edema (GellermannYoli M. EX ASSISTANT/PROGRAM DIRECTOR) Neurologic Neuro Exam: Alert, Awake (GellermannYoli M. EX ASSISTANT/PROGRAM DIRECTOR) Psychiatric Psych Exam: Appropriate Responses (GellermannYoli M. EX ASSISTANT/PROGRAM DIRECTOR) Assessment/Plan Problem List: (1) ESRD (end stage renal disease) ICD Codes: N18.6 - ESRD (end stage renal disease) Status: Acute Plan: ESRD on HD on MWF. Dialysis was missed on admission Has right chest wall permacath. Epogen with dialysis Calcium is elevated at 10.4. PO4 and PTH WNL Plan Continue antibiotics vanco with dialysis and Levaquin HD yesterday with 4 liters removed. MRI planned for today to evaluate extent of osteo Dialysis scheduled for today. (2) PVD (peripheral vascular disease) ICD Codes: I73.9 - Peripheral vascular disease, unspecified (3) Gangrene of toe of right foot ICD Codes: I96 - Gangrene, not elsewhere classified Plan: Dr Urbano managing (4) DM (diabetes mellitus) ICD Codes: E11.9 - DM (diabetes mellitus) Status: Acute Plan: Continue home medications (5) HTN (hypertension) ICD Codes: I10 - HTN (hypertension) Status: Acute Plan: continue home medications (Yoli Reich) Problem List: (1) ESRD (end stage renal disease) ICD Codes: N18.6 - ESRD (end stage renal disease) Status: Acute Plan: ESRD on HD on MWF. Dialysis was missed on admission Has right chest wall permacath. Epogen with dialysis Calcium is elevated at 10.4. PO4 and PTH WNL Plan Continue antibiotics vanco with dialysis and Levaquin HD yesterday with 4 liters removed. MRI planned for today to evaluate extent of osteo Dialysis scheduled for today. Patient seen and examined, agree with above. Calcium is improving, Po 4 was normal and PTH was low. Use low Calcium in Dialysis. (2) PVD (peripheral vascular disease) ICD Codes: I73.9 - Peripheral vascular disease, unspecified (3) Gangrene of toe of right foot ICD Codes: I96 - Gangrene, not elsewhere classified Plan: Dr Urbano managing (4) DM (diabetes mellitus) ICD Codes: E11.9 - DM (diabetes mellitus) Status: Acute Plan: Continue home medications (5) HTN (hypertension) ICD Codes: I10 - HTN (hypertension) Status: Acute Plan: continue home medications (Chidi Tomas MD) Yoli Reich Nov 27, 2017 11:11 Chidi Tomas MD Nov 27, 2017 19:24
--- NOTE | 2017-11-27 13:56 | RADRPT ---
EXAM DATE/TIME: 11/27/2017 12:43 [facility] COMPARISON: FOOT RIGHT COMPLETE ([id number]), November 25, 2017, 14:23. INDICATIONS : Wound, Osteomyelitis hallux MEDICAL HISTORY : Hypertension. Diabetes mellitus type 2. Chronic Kidney Disease, PVD SURGICAL HISTORY : Right Anterior Tibial Artery Angio, Right Subclavian Permacath ENCOUNTER: Subsequent ACUITY: 3 day PAIN SCORE: 0/10 LOCATION: Right Foot TECHNIQUE: Multiplanar, multisequence MRI examination was performed without contrast. FINDINGS: No intravenous contrast was administered secondary to decreased GFR. The remaining distal phalanx of the first digit is not well visualized but appears to demonstrate inc reased T1 signal but is not well-seen on the T1 sequences. There is normal T1 signal within the proxi mal phalanx of the first digit but there is increased T2 signal within the first digit proximal phala nx. A mild degree of edema is also present in the distal aspect of the first metatarsal involving the distal 3 cm. There is focal increased T2 and decreased T1 signal at the fifth metatarsal head. The r emaining bones of the right foot demonstrate no definite abnormality. There is midfoot intramuscular edema. No fluid collection or abscess is seen. CONCLUSION: 1. The distal phalanx of the first digit is not well visualized given the location and mild motion bu t appears to demonstrate edema. This finding along with the x-ray findings are suspicious for osteomy elitis. No contrast could be administered on this examination secondary to reduced GFR. 2. There is also focal marrow edema within the fifth metatarsal head. Benjamín Harris MD on November 27, 2017 at 13:48 Board Certified Radiologist. This report was verified electronically.
--- NOTE | 2017-11-27 15:12 | HHI.PR ---
Subjective Remarks Follow-up for PVD, right great toe gangrene, ESRD. Doing well. No acute concerns. No fever, chills. Objective Vitals Vital Signs Date Time Temp Pulse Resp B/P (MAP) Pulse Ox O2 Delivery O2 Flow Rate FiO2 11/27/17 11:55 96.3 74 17 120/60 (80) 96 11/27/17 09:56 96 11/27/17 08:04 98.1 74 17 112/58 (76) 96 11/27/17 08:00 96 Room Air 21 11/27/17 04:58 98.2 85 14 122/65 (84) 98 11/27/17 04:00 Room Air 11/27/17 00:44 98.3 79 14 122/65 (84) 96 11/27/17 00:00 Room Air 11/26/17 21:04 97.6 72 16 145/67 (93) 98 11/26/17 20:00 Room Air 11/26/17 17:26 97 21 I/O 11/26/17 11/26/17 11/26/17 11/27/17 11/27/17 11/27/17 06:59 14:59 22:59 06:59 14:59 22:59 Intake Total 580 ml 100 ml 380 ml Output Total 900 ml 5400 ml Balance -320 ml 100 ml -5020 ml Intake Oral 480 ml 380 ml IV Total 100 ml 100 ml Output Urine Total 900 ml 1400 ml Hemodialysis 4000 ml # Voids 3 # Bowel Movements 0 1 Result Diagram: 11/26/17 0450 11/26/17 0908 Imaging Last Impressions Foot MRI 11/27/17 0000 Signed Impressions: Service Date/Time: Monday, November 27, 2017 12:43 - CONCLUSION: 1. The distal phalanx of the first digit is not well visualized given the location and mild motion but appears to demonstrate edema. This finding along with the x- ray findings are suspicious for osteomyelitis. No contrast could be administered on this examination secondary to reduced GFR. 2. There is also focal marrow edema within the fifth metatarsal head. Benjamín Harris MD Foot X-Ray 11/25/17 0000 Signed Impressions: Service Date/Time: Saturday, November 25, 2017 14:23 - CONCLUSION: 1. There has been osseous destruction of the distal half of the first digit distal phalanx. This finding along with the adjacent wound is highly suspicious for osteomyelitis associated osseous destruction. 2. Severe small vessel arterial vascular calcification in a pattern seen in diabetic patients. Benjamín Harris MD Objective Remarks GENERAL: Alert, oriented 3, NAD. SKIN: Warm and dry. HEAD: Normocephalic. EYES: No scleral icterus. No injection or drainage. NECK: Supple, trachea midline. No JVD or lymphadenopathy. CARDIOVASCULAR: Regular rate and rhythm without murmurs, gallops, or rubs. RESPIRATORY: Breath sounds equal bilaterally. No accessory muscle use. GASTROINTESTINAL: Abdomen soft, non-tender, nondistended. MUSCULOSKELETAL: No cyanosis, or edema. Right great toe gangrene noted. BACK: Nontender without obvious deformity. No CVA tenderness. Procedures None A/P Problem List: (1) Gangrene of toe of right foot ICD Code: I96 - Gangrene, not elsewhere classified (2) ESRD (end stage renal disease) ICD Code: N18.6 - ESRD (end stage renal disease) Status: Acute (3) PVD (peripheral vascular disease) ICD Code: I73.9 - Peripheral vascular disease, unspecified (4) DM (diabetes mellitus) ICD Code: E11.9 - DM (diabetes mellitus) Status: Acute Assessment and Plan 67-year-old male with past medical history significant for HTN, ESRD on HD, DM, and PVD who presents to the emergency department with complaints of right foot great toe wound as well as right foot lateral and heel wound. Right foot great toe gangrene Right foot osteomyelitis Right heel, right lateral foot eschars PVD -Right foot imagines studies (xray and MRI) are indicative of possible osteomyelitis. -Blood cultures No Growth so far. Wound culture no growth. -ID consulted. Zosyn discontinued. Patient is now on PO Levaquin and IV Vancomycin to be given during Dialysis. Discussed with ID and Nephrology. -Podiatry evaluated patient, Surgical intervention planned during this admission. -Vascular surgery evaluated patient, will consider right lower extremity angiogram for revascularization ESRD on HD -Hemodialysis Saturday, Saturday, Saturday. Patient reports not having HD on 11/25/2017. CMP reviewed, creatinine 10.41, potassium 4.6 -Nephrology is following. DM -Diabetic diet, Accu-Cheks with insulin sliding scale -BG is around 228 today. If it continues to be high, we will consider long acting insulin at night. Full code. Heparin 5000 SQ BID. Elidia Garcia DO Nov 27, 2017 15:12
[2017-11-27] MEDS ORDERED: LEVOFLOXACIN 500 MG PREMIX INJ 100 ML IV SCH (19:00)
[2017-11-28 04:00] VITALS: BP 109/55; PULSE 76; RESP 16; TEMP 98.1; O2SAT 99
[2017-11-28] MEDS: INSULIN ASPART SUPPLEMENTAL SCALE SQ SCH ×2 (08:00→11:34)
[2017-11-28 08:04] VITALS: BP 111/55; PULSE 76; RESP 17; TEMP 98.3; O2SAT 94
[2017-11-28] MEDS: LEVOFLOXACIN 250 MG TAB PO SCH (08:24)
[2017-11-28] MEDS: SODIUM CHLORIDE 0.9% FLUSH 10 ML FLUSH IV FLUSH SCH (08:28)
[2017-11-28] MEDS: HEPARIN SODIUM - SQ 10,000 UNITS/ML VIAL SQ SCH (08:28)
[2017-11-28] MEDS: COLLAGENASE OINT 30 GM TUBE TOPICAL SCH (08:29)
--- NOTE | 2017-11-28 11:15 | HHI.NPPN ---
Subjective History of Present Illness Patient is a 67-year-old male with past medical history significant for HTN, ESRD on HD, DM, and PVD who presents to the emergency department with complaints of right foot great toe wound as well as right foot lateral and heel wound. He states that his right toe issues originally began 3 months ago and it started off originally as a blister on the top of his big toe as well as a blister on the side of his right foot. Review of EMR, patient recently underwent right anterior tibial artery angioplasty by Dr. Leija on 11/19/17. Nephrology is consulted for ESRD and HD. He has a right chest wall permacath. His health care manager is Dr. Abreu and his normal days are // and he missed yesterday because he was coming to the hospital. He has been on dialysis for about 3 months. Additional Remarks Patient is resting comfortably. No SOB no edema (Yoli Reich) Review of Systems Respiratory Respiratory Remarks No SOB (Yoli Reich) Cardiovascular Cardiac Remarks NO CP (Yoli Reich) Gastrointestinal GI Remarks No abdominal pain (Yoli Reich) Objective Data Data Vital Signs Date Time Temp Pulse Resp B/P (MAP) Pulse Ox O2 Delivery O2 Flow Rate FiO2 11/28/17 08:30 Room Air 11/28/17 08:04 98.3 76 17 111/55 (73) 94 11/28/17 04:00 Room Air 11/28/17 04:00 98.1 76 16 109/55 (73) 99 11/28/17 00:00 Room Air 11/27/17 23:14 98.6 81 18 118/59 (78) 99 11/27/17 21:53 97 11/27/17 20:00 96.4 82 20 117/57 (77) 99 11/27/17 20:00 Room Air 11/27/17 17:00 97.5 77 18 136/65 (88) 98 11/27/17 11:55 96.3 74 17 120/60 (80) 96 (Yoli Reich) -: 11/26/17 0450 11/26/17 0908 Physical Exam General Appearance: Well Nourished, No Acute Distress, Comfortable (Yoli Reich. MAIL CARRIER) Eyes Eye Exam: Pupils Equal (Yoli Reich MAIL CARRIER) Throat Throat Exam: Oral Mucosa [place] & Moist (Yoli Reich MAIL CARRIER) Pulmonary Resp Exam: Clear Bilaterally, Breath Sounds Equal, No Distress (Yoli Reich MAIL CARRIER) Cardiology CV Exam: Regular, Normal Sinus Rhythm, Murmur (Yoli ReichP) Gastrointestinal/Abdomen GI Exam: Soft, Non-Tender, Bowel Sounds Present (Yoli Reich MAIL CARRIER) Genitourinary Exam: Flank Non-Tender (Yoli Reich MAIL CARRIER) Integumentary Skin Exam: Clear, Warm, Dry (Yoli ReichP) Extremeties Extremities Exam: No Edema (Yoli ReichP) Neurologic Neuro Exam: Alert, Awake (Yoli ReichP) Psychiatric Psych Exam: Appropriate Responses (Yoli Reich) Assessment/Plan Problem List: (1) ESRD (end stage renal disease) ICD Codes: N18.6 - ESRD (end stage renal disease) Status: Acute Plan: ESRD on HD on MWF. Dialysis was missed on admission Has right chest wall permacath. Epogen with dialysis Calcium is elevated at 10.4. PO4 and PTH WNL Plan Continue antibiotics vanco with dialysis and Levaquin HD yesterday wit 3 liters removed Calcium is improving, Po 4 was normal and PTH was low. Use low Calcium in Dialysis Dialysis tomorrow (2) PVD (peripheral vascular disease) ICD Codes: I73.9 - Peripheral vascular disease, unspecified (3) Gangrene of toe of right foot ICD Codes: I96 - Gangrene, not elsewhere classified Plan: Dr Urbano managing (4) DM (diabetes mellitus) ICD Codes: E11.9 - DM (diabetes mellitus) Status: Acute Plan: Continue home medications (5) HTN (hypertension) ICD Codes: I10 - HTN (hypertension) Status: Acute Plan: continue home medications (Yoli ReichP) Problem List: (1) ESRD (end stage renal disease) ICD Codes: N18.6 - ESRD (end stage renal disease) Status: Acute Plan: ESRD on HD on MWF. Dialysis was missed on admission Has right chest wall permacath. Epogen with dialysis Calcium is elevated at 10.4. PO4 and PTH WNL Plan Continue antibiotics vanco with dialysis and Levaquin HD yesterday wit 3 liters removed Calcium is improving, Po 4 was normal and PTH was low. Patient seen and examined, agree with above. (2) PVD (peripheral vascular disease) ICD Codes: I73.9 - Peripheral vascular disease, unspecified (3) Gangrene of toe of right foot ICD Codes: I96 - Gangrene, not elsewhere classified Plan: Dr Urbano managing (4) DM (diabetes mellitus) ICD Codes: E11.9 - DM (diabetes mellitus) Status: Acute Plan: Continue home medications (5) HTN (hypertension) ICD Codes: I10 - HTN (hypertension) Status: Acute Plan: continue home medications (Chidi Tomas MD) Yoli Reich Nov 28, 2017 11:15 Chidi Tomas MD Nov 28, 2017 21:41
[2017-11-28 12:04] VITALS: BP 107/61; PULSE 83; RESP 17; TEMP 98.4; O2SAT 99
--- NOTE | 2017-11-28 14:23 | PD.CAR.PN ---
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 In addition patient has a gangrenous scab of the lateral aspect of his fifth metatarsal so this will need to be debrided as well. I agree with Dr. Leija to make another shot at opening the anterior tibial artery perhaps from below up in retrograde fashion. Either way in the best case scenario patient will have lateral foot debridement and removal of the hallux and likely this will not heal based on the natural history of his disease small vessel changes and ischemia of the foot Patient will be best served by below-knee amputation and a functional prosthesis which would make him fully functional and mobile Unfortunately patient does want to hear of below-knee amputation at this point but as the time progresses I am sure he will come around I agree with management plan Dr. Leija has and in the meantime patient can go home and then come back to see Dr. Leija next week In addition I do not see any reason for antibiotics at this time because there is no active infection and this is simply dry gangrene Full consult dictated Thanks J Objective: Vital Signs Date Time Temp Pulse Resp B/P (MAP) Pulse Ox O2 Delivery O2 Flow Rate FiO2 11/28/17 12:04 98.4 83 17 107/61 (76) 99 11/28/17 08:30 Room Air 11/28/17 08:04 98.3 76 17 111/55 (73) 94 11/28/17 04:00 Room Air 11/28/17 04:00 98.1 76 16 109/55 (73) 99 11/28/17 00:00 Room Air 11/27/17 23:14 98.6 81 18 118/59 (78) 99 11/27/17 21:53 97 11/27/17 20:00 96.4 82 20 117/57 (77) 99 11/27/17 20:00 Room Air 11/27/17 17:00 97.5 77 18 136/65 (88) 98 Result Diagram: 11/26/17 0450 11/26/17 0908 Juana Stewart MD Nov 28, 2017 14:23
--- NOTE | 2017-11-28 14:27 | MB ---
cc: Juana Stewart MD DATE OF CONSULT: REASON FOR CONSULTATION: Second opinion and evaluation of vascular disease. HISTORY OF PRESENT DISEASE: A 67-year-old gentleman with known significant medical history including diabetes mellitus, hypertension, and renal failure who is now on dialysis, presented about [address] [facility] with blister on his right greater toe. This, in the next 3 months, progressed into dry gangrene of the right toe and essentially exposed bone and cellulitis. In addition, patient got 2 more wounds, one on the lateral aspect of the right foot and then one on the heel. Patient underwent anterior tibial artery angioplasty by Dr. Leija, and now, patient wanted second opinion because he wanted to go home. It should also be noted that patient is not very compliant with his care and signs out against medical advice from [facility]. PAST MEDICAL HISTORY: As above noted, diabetes mellitus, hypertension, peripheral vascular disease, end-stage renal failure for a few months. SURGICAL HISTORY: That of left femur fracture, right humerus fracture, back surgery and right subclavian PermCath placement. Now with right anterior tibial artery angioplasty by Dr. Leija. MEDICATIONS: Can be found on the record. SOCIAL: Patient never smoked and does not drink. PHYSICAL EXAMINATION: Reveals 67-year-old male. Normocephalic, no trauma to the head. Pupils equal, reactive. Extraocular muscles intact. NECK: Bilateral carotid pulses and bilateral faint bruits. CHEST: Bilateral breath sounds. HEART: Regular rhythm. ABDOMEN: Soft. Active bowel sounds. No rebound, no guarding, no masses. EXTREMITIES: Patient actually has good palpable femoral and popliteal pulses bilateral. Distally, he has actually a weak anterior tibial and weak posterior tibial pulse bilateral but these all by reconstitution. Patient does have dry gangrene of the right greater toe and then lateral foot and heel, while the left foot appears to be intact, and there is no defect. Veins in both legs are fairly good and saphenous vein seems to be fairly large. IMPRESSION AND RECOMMENDATIONS: This patient has obviously diabetic pattern of the disease with majority of the changes below the level of the knee with occlusion of all 3 vessels of the trifurcation and bits and pieces as we go along. Dr. Leija has made heroic attempt to open these vessels, open anterior tibial artery in order to improve the chances of healing once patient undergoes right hallux amputation (because there is no other way to fix this now; hallux has to go). On a broader note, I believe that this patient will require a below-knee amputation eventually and it is valid to try to save as much foot as we can, but natural progression of patient's disease is inching toward the below-knee amputation. I have discussed this with the patient. He does not want to even hear about below-knee amputation at this time and wants to try everything else. My recommendation will be in concert with Dr. Leija's and I completely agree with his approach. In the meantime, of course, patient can go home and then come back next week to be seen by Dr. Leija. I thank you very much for referral. MD JAIMIE Yi/YASMEEN , 02:05 PM , 02:26 PM
[2017-11-28] MEDS ORDERED: CLIN300C5 PO (14:44)
--- NOTE | 2017-11-28 20:05 | HHI.DS ---
Discharge Summary Admission Date Nov 25, 2017 at 16:36 Discharge Date: Nov 28, 2017 Admitting Diagnosis right foot osteomyelitis, dm, renal failure dialysis dependent. (1) Gangrene of toe of right foot ICD Code: I96 - Gangrene, not elsewhere classified (2) ESRD (end stage renal disease) ICD Code: N18.6 - ESRD (end stage renal disease) Status: Acute (3) PVD (peripheral vascular disease) ICD Code: I73.9 - Peripheral vascular disease, unspecified (4) DM (diabetes mellitus) ICD Code: E11.9 - DM (diabetes mellitus) Status: Acute Procedures None Brief History - From Admission Written by Stephanie Jiang, acting as scribe for Dr. Hale on 11/25/17 at 17:45. 67-year-old male with past medical history significant for HTN, ESRD on HD, DM, and PVD who presents to the emergency department with complaints of right foot great toe wound as well as right foot lateral and heel wound. He states that his right toe issues originally began 3 months ago and it started off originally as a blister on the top of his big toe as well as a blister on the side of his right foot. Review of EMR, patient recently underwent right anterior tibial artery angioplasty by Dr. Leija on 11/19/17. Patient reports that he was at [facility] in [facility] about 2 months ago due to right foot wounds. Patient states that there was no real treatment and that the foot was only looked at and application of ointment and bandages were done. Does not know who the account engineer was who saw him while he was in the hospital. He states that he was only in the hospital for 3 days and was given IV antibiotics however felt that nothing was really being done for his foot therefore he left AGAINST MEDICAL ADVICE. Patient reports that he had been home and noticed that his right foot big toe was starting to get very hard. Therefore he grabbed a toenail clipper and clipped the toenail but when he clipped the toenail part of the toe fell off. He reports that the toe bled for about 1-2 hours. He believes that it was old blood underneath the toe that could have possibly caused his toe to be affected. Denies any fevers, chills, nausea, vomiting, diarrhea, constipation, black stools. No diarrhea BM every everyday. CBC/BMP: 11/26/17 0450 11/26/17 0908 Significant Findings Laboratory Tests Test 11/26/17 04:50 11/26/17 09:08 11/27/17 05:50 Red Blood Count 3.02 MIL/MM3 (4.50-5.90) Hemoglobin 10.1 GM/DL (13.0-17.0) Hematocrit 29.4 % (39.0-51.0) Monocytes (%) (Auto) 14.4 % (0.0-8.0) Monocytes # (Auto) 1.1 TH/MM3 (0-0.9) Blood Urea Nitrogen 87 MG/DL (7-18) Creatinine 10.54 MG/DL (0.60-1.30) Calcium Level 10.4 MG/DL (8.5-10.1) Estimat Glomerular Filtration Rate 5 ML/MIN (>89) Random Glucose 130 MG/DL (74-106) Imaging Last Impressions Foot MRI 11/27/17 0000 Signed Impressions: Service Date/Time: Monday, November 27, 2017 12:43 - CONCLUSION: 1. The distal phalanx of the first digit is not well visualized given the location and mild motion but appears to demonstrate edema. This finding along with the x- ray findings are suspicious for osteomyelitis. No contrast could be administered on this examination secondary to reduced GFR. 2. There is also focal marrow edema within the fifth metatarsal head. Benjamín Harris MD Foot X-Ray 11/25/17 0000 Signed Impressions: Service Date/Time: Saturday, November 25, 2017 14:23 - CONCLUSION: 1. There has been osseous destruction of the distal half of the first digit distal phalanx. This finding along with the adjacent wound is highly suspicious for osteomyelitis associated osseous destruction. 2. Severe small vessel arterial vascular calcification in a pattern seen in diabetic patients. Benjamín Harris MD PE at Discharge GENERAL: Alert, oriented 3, NAD. SKIN: Warm and dry. HEAD: Normocephalic. EYES: No scleral icterus. No injection or drainage. NECK: Supple, trachea midline. No JVD or lymphadenopathy. CARDIOVASCULAR: Regular rate and rhythm without murmurs, gallops, or rubs. RESPIRATORY: Breath sounds equal bilaterally. No accessory muscle use. GASTROINTESTINAL: Abdomen soft, non-tender, nondistended. MUSCULOSKELETAL: No cyanosis, or edema. Right great toe gangrene noted. BACK: Nontender without obvious deformity. No CVA tenderness. Pt update on day of discharge Patient is currently doing well. No fever or chills. After discussing with vascular surgeons as well as infectious disease, patient is being discharged home with outpatient follow-up with vascular surgery. Hospital Course Mr. Solitario is a 67-year-old male with past medical history significant for HTN, ESRD on HD, DM, and PVD who presents to the emergency department with complaints of right foot great toe wound as well as right foot lateral and heel wound. Podiatry and vascular surgery were consulted. Foot imaging studies indicated possible osteomyelitis. Blood cultures and wound cultures did not grow any organisms. Infectious disease was consulted as well. Vascular surgery recommended angiogram for revascularization which was tentatively scheduled 1 week after the vascular surgery consultation was done. Podiatry did not want to proceed did not want to proceed with any procedure before vascular surgery intervention is completed. On , 11/28/2017, I discussed extensively with different vascular surgeon based on patient's insistence that we get an opinion from a different surgeon. Dr. Hernandez was kind enough to evaluate patient and also discussed with Dr. Leija. The end result of all the discussion was that patient does not need any emergent angiogram. He will be scheduled for outpatient follow-up next week for possible angiogram and intervention. I discussed with infectious disease who recommended 7 day course of clindamycin 300 mg 3 times daily. Patient was subsequently discharged with outpatient follow-up with vascular surgery. Pt Condition on Discharge: Good Discharge Disposition: Discharge Home Discharge Time: > 30 minutes Discharge Instructions DIET: Follow Instructions for: Diabetic Diet, Renal Failure Diet Activities you can perform: Regular-No Restrictions Follow up Referrals: Vascular Surgery - 12/03/17 with Kevin Leija MD New Medications: Clindamycin (Clindamycin) 300 Mg Cap 300 MG PO TID for Infection, #21 CAP 0 Refills Continued Medications: Amlodipine-Valsartan (Amlodipine-Valsartan) 10-160 Mg Tab 1 TAB PO DAILY for Blood Pressure Management, #30 TAB [address] (Aspirin DR) 81 Mg Tabdr 81 MG PO DAILY, TAB 0 Refills Atorvastatin (Lipitor) 10 Mg Tab 10 MG PO HS for Cholesterol Management, #30 TAB 0 Refills Bumetanide (Bumetanide) 2 Mg Tab 2 MG PO DAILY, TAB 0 Refills Calcium Acetate (Phosphate Bin (Calcium Acetate) 667 Mg Cap 4 CAP PO TID Clopidogrel (Plavix) 75 Mg Tab 75 MG PO DAILY for Blood Clot Prevention, #30 TAB 0 Refills Gabapentin (Gabapentin) 300 Mg Cap 300 MG PO HS, #30 CAP 0 Refills Glipizide (Glipizide) 5 Mg Tab 5 MG PO DAILY for Blood Sugar Management, #30 TAB 0 Refills Take 30 minutes before a meal Metoprolol Succinate ER 24 HR (Metoprolol Succinate ER 24 HR) 50 Mg Tab 50 MG PO HS, #30 TAB 0 Refills Elidia Garcia DO Nov 28, 2017 20:05
== END 2017-11-28 16:07 | disposition home or self-care (01) | DRG 299 ==
LOC: NEPC 13:42 → NEDA 16:36 → N04B 17:39
PROVIDERS: ADMIT Hospitalist; ATTEND Hospitalist
PROC: 5A1D70Z Performance of Urinary Filtration, Intermittent, Less than 6 Hours Per Day (ICD-10-PCS; principal; 2017-11-26)
DX: E11.52 Type 2 diabetes mellitus with diabetic peripheral angiopathy with gangrene (principal); N18.6 End stage renal disease; I96 Gangrene, not elsewhere classified; E11.22 Type 2 diabetes mellitus with diabetic chronic kidney disease; I12.0 Hypertensive chronic kidney disease with stage 5 chronic kidney disease or end stage renal disease; Z79.84 Long term (current) use of oral hypoglycemic drugs; E11.69 Type 2 diabetes mellitus with other specified complication; M86.8X7 Other osteomyelitis, ankle and foot; L97.419 Non-pressure chronic ulcer of right heel and midfoot with unspecified severity; Z99.2 Dependence on renal dialysis; Z79.02 Long term (current) use of antithrombotics/antiplatelets; Z79.82 Long term (current) use of aspirin
CPT/HCPCS: 73630; 73718; 80048; 82947; 82948; 83970; 84100; 85025; 85610; 85730; 87040; 87070; 87205; 90686; 90935; 96374; 96375; J1580; J1644; J1815; J1956; J2543; Q2038

== ENCOUNTER 2017-12-03 08:53 | Inpatient (IN) | payer OTHER, MEDICARE ==
[~2017-12-03] VITALS: Ht 177.8 cm; Wt 80.6 kg
[~2017-12-03 08:53] MED LIST changes: +CALC667C PO; +CLIN300C5 PO; +GABA300C5 PO; +METO1TAB9 PO
[2017-12-03] MEDS ORDERED: POVIDONE IODINE 5% (ANTISEPSIS KIT) 4 APPLICATIONS EACH NARE PRN (10:15)
[2017-12-03] MEDS ORDERED: METOPROLOL TARTRATE 25 MG TAB PO PRN (10:15)
[2017-12-03] MEDS ORDERED: LACTATED RINGER'S 1000 ML IV PRN (10:15)
[2017-12-03] MEDS ORDERED: CHLORHEXIDINE GLUCONATE 2 % 1 PACK (2 CLOTHS) TOPICAL PRN (10:15)
[2017-12-03] MEDS ORDERED: METO5TAB3 PO (10:25)
[2017-12-03] MEDS: SODIUM CHLORID 0.9% 500 ML IV PRN (11:00)
[2017-12-03] MEDS ORDERED: HEPARIN SODIUM - IV 2,000 UNITS/2 ML VIAL ONE (11:08)
--- NOTE | 2017-12-03 11:25 | PD.VS.PN ---
Pre-operative Note Pre-operative diagnosis: Osteo, R foot, PAD Planned procedure: R LE angiogram and tibial intervention Interval History: persistent foot/heel pain but no F/C Labs: pending Blood: none needed Orders: NPO VANC 1g IV OCTOR Post-operative destination: PACU and admit Operative site marked: Yes Consent: Informed consent has been obtained from Predrag Colich. I have explained the procedure in detail and discussed the risks, benefits, and potential complications. All questions have been answered. Kevin Leija MD Dec 03, 2017 11:25
[2017-12-03 11:42] LABS: AUTOMATED NEUTROPHIL # 5.5 TH/MM3 (1.8-7.7); BASOPHIL # 0.1 TH/MM3 (0-0.2); BASOPHIL % 0.9 % (0.0-2.0); EOSINOPHIL # 0.1 TH/MM3 (0-0.4); EOSINOPHIL % 1.1 % (0.0-4.0); HEMATOCRIT 28.6 % (39.0-51.0); HEMOGLOBIN 9.9 GM/DL (13.0-17.0); LYMPH % 18.6 % (9.0-44.0); LYMPHOCYTE # 1.6 TH/MM3 (1.0-4.8); MEAN CELL VOLUME 98.1 FL (80.0-100.0); MEAN CORPUSCULAR HEMOGLOBIN 33.8 PG (27.0-34.0); MEAN CORPUSCULAR HGB CONC 34.5 % (32.0-36.0); MEAN PLATELET VOLUME 7.7 FL (7.0-11.0); MONO % 14.3 % (0.0-8.0); MONOCYTE # 1.2 TH/MM3 (0-0.9); NEUT % 65.1 % (16.0-70.0); PLATELET COUNT 250 TH/MM3 (150-450); RED BLOOD COUNT 2.91 MIL/MM3 (4.50-5.90); RED CELL DISTRIBUTION WIDTH 14.4 % (11.6-17.2); WHITE BLOOD COUNT 8.5 TH/MM3 (4.0-11.0)
[2017-12-03 11:43] LABS: BACTERIA, URINE OCC /hpf; BILIRUBIN, URINE NEG (NEG); BLOOD, URINE SMALL (NEG); GLUCOSE,URINE TRACE mg/dL (NEG); HYALINE CAST, URINE 7 /lpf (RARE); KETONE, URINE NEG (NEG); MUCUS URINE FEW /lpf (OCC); NITRITE,URINE NEG (NEG); SQUAMOUS EPITHELIAL CELL URINE 2 /hpf (0-5); TRANSITIONAL EPI CELLS, URINE <1 /hpf; URINE COLOR YELLOW (YELLW/STRAW); URINE LEUKOCYTE ESTERASE SMALL (NEG)
[2017-12-03 11:49] LABS: INTERNATIONAL NORMALIZED RATIO 1.1 RATIO; PROTHROMBIN TIME - PATIENT 11.4 SEC (9.8-11.6)
[2017-12-03] MEDS ORDERED: LIDOCAINE HCL 1% PF 5 ML SYRINGE OTHER ONE (12:00)
[2017-12-03] MEDS ORDERED: PROPOFOL 200 MG/20 ML AMP IV ONE (12:00)
[2017-12-03] MEDS ORDERED: PHENYLEPH/NS 1000 MCG/10 ML SYR IV ONE (12:00)
[2017-12-03] MEDS ORDERED: SODIUM CHLOR 0.9% 250 ML INJ 250 ML IV ONE (12:00)
[2017-12-03 12:11] LABS: BICARBONATE 27.2 MEQ/L (21.0-32.0); CALCIUM 10.1 MG/DL (8.5-10.1); CREATININE 7.68 MG/DL (0.60-1.30)
[2017-12-03] MEDS ORDERED: HEPARIN SODIUM - IV 10,000 UNITS/10 ML VIAL ONE (14:52)
[2017-12-03] MEDS ORDERED: HEPARIN-NS/PF INJ 500 ML ONE (14:52)
[2017-12-03] MEDS ORDERED: PROTAMINE SULFATE 50 MG/5 ML VIAL ONE (14:52)
[2017-12-03] MEDS ORDERED: fentaNYL CITRATE 250 MCG/5 ML AMP ONE (14:54)
[2017-12-03] MEDS ORDERED: VANCOMYCIN HCL 1000 MG VIAL ONE (14:54)
--- NOTE | 2017-12-03 15:33 | HHI.PR ---
cc: Kevin Leija MD Immediate Post Op Note Procedure Date: Dec 03, 2017 Pre Op Diagnosis: PAD, R foot osteo Post Op Diagnosis: PAD, R foot osteo Surgeon: Kevin Leija Iron Miner(s): none Procedure: 1. U/S guided access to DP 2. Pedal angiogram Findings: occluded mid-AT Additional Information: pt teressa well Complications: none Specimen(s) removed: none Estimated blood loss: 5mL Anesthesia: LMA Drains: None Patient to: PACU Patient Condition: Good Date/Time of Procedure: SEE SURGICAL CARE RECORD Kevin Leija MD Dec 03, 2017 15:33
[2017-12-03] MEDS ORDERED: LACTULOSE SYRUP 20 GM/30 ML CUP PO PRN (15:45)
[2017-12-03] MEDS: HEPARIN SODIUM - SQ 10,000 UNITS/ML VIAL SQ SCH ×2 (15:45→22:33)
[2017-12-03] MEDS ORDERED: HYDROmorphone HCL 2 MG TAB PO PRN (15:45)
[2017-12-03] MEDS ORDERED: SENNOSIDES 8.6 MG TAB PO PRN (15:45)
[2017-12-03] MEDS ORDERED: BISACODYL 10 MG SUPP RECTAL PRN (15:45)
[2017-12-03] MEDS ORDERED: DO NOT ADM ANY ANTICOAGULANT DRUGS PRN (17:00)
--- NOTE | 2017-12-03 17:57 | PD.CONS ---
History of Present Illness Service Podiatry Consult Requested By Liss Reason for Consult Right hallux gangrene Primary Care Physician Mariah Caraballo MD Diagnoses: History of Present Illness Patient was here today for angio, seen in PACU after recovered to discuss and examine right hallux. He states the toe has been turning dark. He is anxious to have surgery as soon as possible. Past Family Social History Allergies: Coded Allergies: No Known Allergies (Unverified Allergy, Unknown, 12/03/17) Past Medical History PVD Diabetes mellitus HTN ESRD Past Surgical History That of left femur fracture, right humerus fracture, back surgery and right subclavian PermCath placement. Now with right anterior tibial artery angioplasty by Dr. Leija. Active Ordered Medications Current Medications Medications (Trade) Dose Ordered Sig/Lia Route Start Time Stop Time Status Last Admin Lactated Ringer's 1,000 ml @ 30 mls/hr Q24H PRN IV 12/03/17 10:15 12/06/17 10:14 Sodium Chloride 500 ml @ 30 mls/hr [id number] PRN IV 12/03/17 10:15 12/06/17 10:14 12/03/17 11:00 (Lopressor) 25 mg CANDLE MOLDER MACHINE PRN PO 12/03/17 10:15 12/06/17 10:14 (Betadine 5% Antisepsis Kit) 1 applic CANDLE MOLDER MACHINE PRN EACH NARE 12/03/17 10:15 12/06/17 10:14 12/03/17 11:20 (Chlorhexidine 2% Cloth) 3 pack CANDLE MOL[employer] MACHINE PRN TOPICAL 12/03/17 10:15 12/06/17 10:14 12/03/17 11:00 (Aspirin Chew) 81 mg DAILY PO 12/04/17 09:00 (Roxicodone) 5 mg Q4H PRN PO 12/03/17 15:45 (Dilaudid) 2 mg Q4H PRN PO 12/03/17 15:45 (Heparin Inj) 5,000 units Q8HR SQ 12/03/17 15:45 (Carissa-Colace) 1 tab BID PO 12/03/17 21:00 (Senokot) 17.2 mg Q12H PRN PO 12/03/17 15:45 (Dulcolax Supp) 10 mg DAILY PRN RECTAL 12/03/17 15:45 (Lactulose Liq) 30 ml DAILY PRN PO 12/03/17 15:45 (Lipitor) 10 mg HS PO 12/03/17 21:00 (Bumetanide) 2 mg DAILY PO 12/04/17 09:00 (Phoslo) 2,668 mg TID PO 12/03/17 18:00 (Cleocin) 300 mg TID PO 12/03/17 18:00 (Plavix) 75 mg DAILY PO 12/04/17 09:00 (Neurontin) 300 mg HS PO 12/03/17 21:00 (Glucotrol) 5 mg DAILY PO 12/04/17 09:00 (Zaroxolyn) 5 mg DAILY PO 12/04/17 09:00 (Norvasc) 10 mg DAILY PO 12/04/17 09:00 (Diovan) 160 mg DAILY PO 12/04/17 09:00 Miscellaneous Information ALL NURSING DEPARTME... UNSCH PRN .XX 12/03/17 17:00 12/04/17 16:59 Social History Denies Physical Exam Vital Signs Vital Signs Date Time Temp Pulse Resp B/P (MAP) Pulse Ox O2 Delivery O2 Flow Rate FiO2 12/03/17 15:45 98.1 62 18 139/64 (89) 99 Room Air 12/03/17 10:30 97.4 80 20 120/59 (79) 100 Physical Exam Right distal half of hallux with dry gangrenous tissue. Margins clean and dry with no purulence or erythema. Laboratory Laboratory Tests Test 12/03/17 11:00 12/03/17 11:05 12/03/17 11:20 White Blood Count 8.5 Red Blood Count 2.91 Hemoglobin 9.9 Hematocrit 28.6 Mean Corpuscular Volume 98.1 Mean Corpuscular Hemoglobin 33.8 Mean Corpuscular Hemoglobin Concent 34.5 Red Cell Distribution Width 14.4 Platelet Count 250 Mean Platelet Volume 7.7 Neutrophils (%) (Auto) 65.1 Lymphocytes (%) (Auto) 18.6 Monocytes (%) (Auto) 14.3 Eosinophils (%) (Auto) 1.1 Basophils (%) (Auto) 0.9 Neutrophils # (Auto) 5.5 Lymphocytes # (Auto) 1.6 Monocytes # (Auto) 1.2 Eosinophils # (Auto) 0.1 Basophils # (Auto) 0.1 CBC Comment DIFF FINAL Differential Comment Urine Color YELLOW Urine Turbidity HAZY Urine pH 6.0 Urine Specific [place] 1.015 Urine Protein 300 Urine Glucose (UA) TRACE Urine Ketones NEG Urine Occult Blood SMALL Urine Nitrite NEG Urine Bilirubin NEG Urine Urobilinogen LESS THAN 2.0 Urine Leukocyte Esterase SMALL Urine RBC 1 Urine WBC 19 Urine Squamous Epithelial Cells 2 Urine Transitional Epithelial Cells <1 Urine Bacteria OCC Urine Hyaline Casts 7 Urine Granular Casts 1 Urine Mucus FEW Microscopic Urinalysis Comment CULTURE INDICATED Prothrombin Time 11.4 Prothromb Time International Ratio 1.1 Activated Partial Thromboplast Time 26.9 Blood Urea Nitrogen 50 Creatinine 7.68 Random Glucose 146 Calcium Level 10.1 Sodium Level 137 Potassium Level 4.1 Chloride Level 100 Carbon Dioxide Level 27.2 Anion Gap 10 Estimat Glomerular Filtration Rate 7 Date/Time Source Procedure Growth Status 12/03/17 11:05 Urine Clean Catch Urine Culture Pending Received Result Diagram: 12/03/17 1100 12/03/17 1120 Assessment and Plan Assessment and Plan Right hallux gangrene To OR tomorrow for amputation right hallux NPO after midnight Carole Altman DPM Dec 03, 2017 17:57
--- NOTE | 2017-12-03 18:49 | EKG ---
Date Performed: 12/03/2017 Time Performed: 10:43:16 PTAGE: 67 years EKG: Sinus rhythm NONSPECIFIC T-WAVE ABNORMALITY BORDERLINE ECG PREVIOUS TRACING : 11/07/2014 18.01 DOCTOR: Mekhi Jeffrey Interpretating Date/Time 12/03/2017 18:44:02
[2017-12-03] MEDS ORDERED: SODIUM CHLORIDE 0.9% FLUSH 10 ML FLUSH IV FLUSH PRN (19:00)
[2017-12-03] MEDS ORDERED: diphenhydrAMINE HCL 25 MG CAP PO PRN (19:00)
[2017-12-03] MEDS ORDERED: SODIUM CHLOR 0.9% 1000 ML INJ 1,000 ML OTHER PRN ×2 (19:00)
[2017-12-03] MEDS ORDERED: GELATIN 12 MM/7 MM FOAM TOP PRN (19:00)
[2017-12-03] MEDS ORDERED: NITROGLYCERIN 0.4 MG SL 25 TABS/BTL SL PRN (19:00)
[2017-12-03] MEDS ORDERED: ACETAMINOPHEN 325 MG TAB PO PRN (19:00)
[2017-12-03] MEDS ORDERED: cloNIDine HCL 0.1 MG TAB PO PRN (19:00)
[2017-12-03] MEDS ORDERED: SODIUM CHLOR 0.9% 1000 ML INJ 1,000 ML IV PRN (19:00)
[2017-12-03] MEDS ORDERED: HEPARIN SODIUM - IV 10,000 UNITS/10 ML VIAL PRN (19:00)
[2017-12-03] MEDS ORDERED: ONDANSETRON HCL 4 MG/2 ML VIAL IV PUSH PRN (19:00)
[2017-12-03] MEDS ORDERED: HEPARIN SODIUM - IV 10,000 UNITS/10 ML VIAL IV FLUSH PRN (19:00)
[2017-12-03] MEDS ORDERED: EPOETIN ALFA 10,000 UNITS/ML VIAL IV PUSH PRN (19:00)
[2017-12-03] MEDS ORDERED: MANNITOL 12.5 GM/50 ML VIAL IV PRN (19:00)
[2017-12-03] MEDS ORDERED: GENTAMICIN SULFATE 20 MG/2 ML VIAL OTHER PRN (19:00)
[2017-12-03] MEDS ORDERED: ALBUMIN 25% INJ 100 ML IV PRN (19:00)
--- NOTE | 2017-12-03 19:01 | PD.CONS ---
HPI Service Nephrology Consult Requested By Dr. Leija Reason for Consult End-stage renal disease Primary Care Physician Mariah Caraballo MD History of Present Illness Patient is a 67-year-old the right male with history of end-stage renal disease on hemodialysis, has a permacath on the right side and sees Dr. ABREU, I've been asked to arrange hemodialysis, patient had long-standing history of diabetes for more than 18 years and his kidneys failed because of diabetes, he has gangrene of the right toe which is getting worse and was admitted for right leg angiogram with the angioplasty. He states he goes on dialysis on Saturday, Saturday and Saturday. Review of Systems Constitutional: COMPLAINS OF: Fatigue Musculoskeletal: COMPLAINS OF: Joint pain, Muscle aches Neurologic: COMPLAINS OF: Abnormal gait Past Family Social History Allergies: Coded Allergies: No Known Allergies (Unverified Allergy, Unknown, 12/03/17) Past Medical History Insulin-dependent diabetes Hypertension ESRD gangrene of the right toe Past Surgical History An 14-year-old he had the left leg repair and right arm repair Permacath Reported Medications Reported Meds & Active Scripts Active Clindamycin (Clindamycin HCl) 300 Mg Cap 300 Mg PO TID Reported Metolazone 5 Mg Tab 5 Mg PO DAILY Calcium Acetate (Calcium Acetate (Phosphate Bin) 667 Mg Cap 4 Cap PO TID Gabapentin 300 Mg Cap 300 Mg PO HS Glipizide 5 Mg Tab 5 Mg PO DAILY Take 30 minutes before a meal Plavix (Clopidogrel Bisulfate) 75 Mg Tab 75 Mg PO DAILY Bumetanide 2 Mg Tab 2 Mg PO DAILY Lipitor (Atorvastatin Calcium) 10 Mg Tab 10 Mg PO HS Aspirin DR (Aspirin) 81 Mg Tabdr 81 Mg PO DAILY Amlodipine-Valsartan 10-160 Mg Tab 1 Tab PO DAILY Active Ordered Medications Current Medications Medications (Trade) Dose Ordered Sig/Lia Route Start Time Stop Time Status Last Admin Lactated Ringer's 1,000 ml @ 30 mls/hr Q24H PRN IV 12/03/17 10:15 12/06/17 10:14 Sodium Chloride 500 ml @ 30 mls/hr [id number] PRN IV 12/03/17 10:15 12/06/17 10:14 12/03/17 11:00 (Lopressor) 25 mg [employer] PRN PO 3/6/18 10:15 12/06/17 10:14 (Betadine 5% Antisepsis Kit) 1 applic [employer] PRN EACH NARE 12/03/17 10:15 12/06/17 10:14 12/03/17 11:20 (Chlorhexidine 2% Cloth) 3 pack [employer] PRN TOPICAL 12/03/17 10:15 12/06/17 10:14 12/03/17 11:00 (Aspirin Chew) 81 mg DAILY PO 12/04/17 09:00 (Roxicodone) 5 mg Q4H PRN PO 12/03/17 15:45 (Dilaudid) 2 mg Q4H PRN PO 12/03/17 15:45 (Heparin Inj) 5,000 units Q8HR SQ 12/03/17 15:45 (Carissa-Colace) 1 tab BID PO 12/03/17 21:00 (Senokot) 17.2 mg Q12H PRN PO 12/03/17 15:45 (Dulcolax Supp) 10 mg DAILY PRN RECTAL 12/03/17 15:45 (Lactulose Liq) 30 ml DAILY PRN PO 12/03/17 15:45 (Lipitor) 10 mg HS PO 12/03/17 21:00 (Bumetanide) 2 mg DAILY PO 12/04/17 09:00 (Phoslo) 2,668 mg TID PO 12/03/17 18:00 (Cleocin) 300 mg TID PO 12/03/17 18:00 (Plavix) 75 mg DAILY PO 12/04/17 09:00 (Neurontin) 300 mg HS PO 12/03/17 21:00 (Glucotrol) 5 mg DAILY PO 12/04/17 09:00 (Zaroxolyn) 5 mg DAILY PO 12/04/17 09:00 (Norvasc) 10 mg DAILY PO 12/04/17 09:00 (Diovan) 160 mg DAILY PO 12/04/17 09:00 Miscellaneous Information ALL NURSING DEPARTME... UNSCH PRN .XX 12/03/17 17:00 12/04/17 16:59 Sodium Chloride 1,000 ml @ 0 mls/hr Q0M PRN OTHER 12/03/17 19:00 UNV (Heparin Inj) 8,000 units UNSCH PRN IV FLUSH 12/03/17 19:00 UNV Sodium Chloride 1,000 ml @ 200 mls/hr Q5H PRN IV 12/03/17 19:00 UNV Sodium Chloride 1,000 ml @ 0 mls/hr Q0M PRN OTHER 12/03/17 19:00 UNV (Mannitol Inj) 12.5 gm UNSCH PRN IV 12/03/17 19:00 UNV Albumin Human 100 ml @ 60 mls/hr UNSCH PRN IV 12/03/17 19:00 UNV (NS Flush) 5 ml UNSCH PRN IV FLUSH 12/03/17 19:00 UNV (Heparin Inj) UNSCH PRN .XX 12/03/17 19:00 UNV (Gentamicin Inj) 20 mg UNSCH PRN OTHER 12/03/17 19:00 UNV (Zofran Inj) 4 mg UNSCH PRN IV PUSH 12/03/17 19:00 UNV (Tylenol) 650 mg UNSCH PRN PO 12/03/17 19:00 UNV (Benadryl) 25 mg UNSCH PRN PO 12/03/17 19:00 UNV (Nitrostat Sl) 0.4 mg UNSCH PRN SL 12/03/17 19:00 UNV (Catapres) 0.1 mg UNSCH PRN PO 12/03/17 19:00 UNV (Epogen Inj) 10,000 units UNSCH PRN IV PUSH 12/03/17 19:00 UNV (Gelfoam 12 Mm/7 Mm Top) 1 foam UNSCH PRN TOP 12/03/17 19:00 UNV Family History Noncontributory Social History Denies smoking, history of alcohol use in past Physical Exam Vital Signs Vital Signs Date Time Temp Pulse Resp B/P (MAP) Pulse Ox O2 Delivery O2 Flow Rate FiO2 12/03/17 18:00 75 18 164/78 (106) 99 Room Air 12/03/17 17:00 65 18 163/73 (103) 99 Room Air 12/03/17 16:45 62 18 162/79 (106) 98 Room Air 12/03/17 16:30 61 18 155/73 (100) 98 Room Air 12/03/17 16:15 61 18 164/75 (104) 98 Room Air 12/03/17 16:00 67 18 164/72 (102) 100 Room Air 12/03/17 15:45 98.1 62 18 139/64 (89) 99 Room Air 12/03/17 10:30 97.4 80 20 120/59 (79) 100 Physical Exam GENERAL: Well-nourished, well-developed patient. SKIN: Warm and dry. HEAD: Normocephalic. EYES: No scleral icterus. No injection or drainage. NECK: Supple, trachea midline. No JVD or lymphadenopathy. CARDIOVASCULAR: Regular rate and rhythm without murmurs, gallops, or rubs. RESPIRATORY: Breath sounds equal bilaterally. No accessory muscle use. GASTROINTESTINAL: Abdomen soft, non-tender, nondistended. EXTREMITIES: No cyanosis, right toe gangrene . NEUROLOGICAL: Awake, alert, and oriented x 3. Non-focal. Laboratory Laboratory Tests Test 12/03/17 11:00 12/03/17 11:05 12/03/17 11:20 White Blood Count 8.5 Red Blood Count 2.91 Hemoglobin 9.9 Hematocrit 28.6 Mean Corpuscular Volume 98.1 Mean Corpuscular Hemoglobin 33.8 Mean Corpuscular Hemoglobin Concent 34.5 Red Cell Distribution Width 14.4 Platelet Count 250 Mean Platelet Volume 7.7 Neutrophils (%) (Auto) 65.1 Lymphocytes (%) (Auto) 18.6 Monocytes (%) (Auto) 14.3 Eosinophils (%) (Auto) 1.1 Basophils (%) (Auto) 0.9 Neutrophils # (Auto) 5.5 Lymphocytes # (Auto) 1.6 Monocytes # (Auto) 1.2 Eosinophils # (Auto) 0.1 Basophils # (Auto) 0.1 CBC Comment DIFF FINAL Differential Comment Urine Color YELLOW Urine Turbidity HAZY Urine pH 6.0 Urine Specific [place] 1.015 Urine Protein 300 Urine Glucose (UA) TRACE Urine Ketones NEG Urine Occult Blood SMALL Urine Nitrite NEG Urine Bilirubin NEG Urine Urobilinogen LESS THAN 2.0 Urine Leukocyte Esterase SMALL Urine RBC 1 Urine WBC 19 Urine Squamous Epithelial Cells 2 Urine Transitional Epithelial Cells <1 Urine Bacteria OCC Urine Hyaline Casts 7 Urine Granular Casts 1 Urine Mucus FEW Microscopic Urinalysis Comment CULTURE INDICATED Prothrombin Time 11.4 Prothromb Time International Ratio 1.1 Activated Partial Thromboplast Time 26.9 Blood Urea Nitrogen 50 Creatinine 7.68 Random Glucose 146 Calcium Level 10.1 Sodium Level 137 Potassium Level 4.1 Chloride Level 100 Carbon Dioxide Level 27.2 Anion Gap 10 Estimat Glomerular Filtration Rate 7 Date/Time Source Procedure Growth Status 12/03/17 11:05 Urine Clean Catch Urine Culture Pending Received Result Diagram: 12/03/17 1100 12/03/17 1120 Assessment and Plan Problem List: (1) ESRD (end stage renal disease) ICD Codes: N18.6 - ESRD (end stage renal disease) Status: Acute Plan: Patient requires hemodialysis on Saturday, Saturday and Saturday Orders are initiated continue to monitor Patient stated that he was a patient under my care 3 years ago at [facility] and due to wrong prescription his kidneys failed, I reviewed the records and he left AMA at that time, he was already in stage V kidney failure and I mentioned to him about dialysis at that time, he did not agreed and signed off, I left prescriptions , those were for antihypertensive medications with the instruction to follow up with primary care physician, Now after 3 years he is stating as above, I corrected him and I told him that he has underlying diabetes and that led to kidney failure, he was already in advanced kidney failure and nearing dialysis when he left [place] 3 years ago. He now follows with Dr. Abreu. (2) Gangrene of toe of right foot ICD Codes: I96 - Gangrene, not elsewhere classified Plan: Vascular surgery following (3) DM (diabetes mellitus) ICD Codes: E11.9 - DM (diabetes mellitus) Status: Acute Plan: Patient needs sliding scale, it was ordered Gaby Russell MD Dec 03, 2017 19:01
[2017-12-03] MEDS ORDERED: GLUCAGON 1 MG/ML VIAL OTHER PRN (19:45)
[2017-12-03] MEDS ORDERED: DEXTROSE 50% IN WATER 50 ML VIAL(D50) IV PUSH PRN (19:45)
--- NOTE | 2017-12-03 19:50 | RADRPT ---
EXAM DATE/TIME: 12/03/2017 18:07 [facility] COMPARISON: FOOT RIGHT COMPLETE ([id number]), November 25, 2017, 14:23. INDICATIONS : Post op right foot. MEDICAL HISTORY : None. SURGICAL HISTORY : None. ENCOUNTER: Initial ACUITY: 1 day PAIN SCORE: Non-responsive. LOCATION: Right foot. FINDINGS: Three-view examination of the foot status post osteotomy of a portion of the distal phalanx of the 1s t digit demonstrates smooth margins to the residual osseous fragment. The alignment of the forefoot osseous structures is unchanged from prior examination. Extensive additional vascular calcification stable. No radiopaque foreign bodies. CONCLUSION: Smooth margins at the osteotomy site of the distal phalanx 1st digit. Joaquin Groves MD on December 03, 2017 at 19:46 Board Certified Radiologist. This report was verified electronically.
[2017-12-03 20:00] VITALS: BP 174/81; PULSE 68; RESP 18; TEMP 96.3; O2SAT 100
[2017-12-03] MEDS: DOCUSATE SODIUM 50 MG/SENNA 8.6 MG TAB PO SCH (22:30)
[2017-12-03] MEDS: GABAPENTIN 300 MG CAP PO SCH (22:31)
[2017-12-03] MEDS: CLINDAMYCIN 150 MG CAP PO SCH (22:32)
[2017-12-03] MEDS: ATORVASTATIN 10 MG TAB PO SCH (22:32)
[2017-12-03] MEDS: CALCIUM ACETATE 667 MG CAP PO SCH (22:33)
[2017-12-03] MEDS: INSULIN ASPART SUPPLEMENTAL SCALE SQ SCH (22:47)
[2017-12-04] VITALS: BP 157/80; PULSE 71; RESP 18; TEMP 97.5; O2SAT 100
[2017-12-04] MEDS: HEPARIN SODIUM - SQ 10,000 UNITS/ML VIAL SQ SCH ×3 (05:54→22:00)
--- NOTE | 2017-12-04 06:14 | MP ---
cc: Kevin Leija MD DATE OF OPERATION: PREOPERATIVE DIAGNOSIS: Right lower extremity tissue loss, peripheral arterial occlusive disease. POSTOPERATIVE DIAGNOSIS: Right lower extremity tissue loss, peripheral arterial occlusive disease. PROCEDURE: 1. Ultrasound-guided access to right dorsalis pedis. 2. Retrograde pedal angiography. ATTENDING SURGEON: Kevin Leija MD ANESTHESIA: General. INDICATIONS: Mr. Solitario is a 67-year-old gentleman with peripheral arterial occlusive disease and tissue loss and end-stage renal disease. He is taken to the operating room for angiographic evaluation and treatment of his distal stenosis. He previously had an angiogram that failed, and he is taken to the operating room for attempted retrograde recanalization. Intraoperatively, it was found that he such calcific lesions that it was impossible to recanalize his anterior tibial artery. DESCRIPTION OF PROCEDURE: Informed consent was obtained from the patient. He was taken to the operating room, placed supine on the operating room table, and appropriate timeout was taken to assure the patient's identity, operative site, and planned procedure. Ancef was initiated prior to skin incision and will be discontinued after a single preoperative dose. Everyone in the room agreed with the timeout, and we proceeded. His right foot and bilateral groins were prepped and draped. Using ultrasonographic guidance, the dorsalis pedis artery was accessed with a 21-gauge micropuncture needle. This was exchanged using Seldinger technique for a micropuncture sheath, through which a 0.014 Choice PT wire was then introduced. Multiple attempts were made to recanalize the anterior tibial artery, but there was a clear calcific boulder-like occlusion that was not traversable by wire and catheter. The wire and catheter were removed and pressure was held for hemostasis. There were no complications. I was present and scrubbed for the entire procedure. MD CHUNG Stone/CATERINA , 05:27 AM , 06:12 AM
--- NOTE | 2017-12-04 07:27 | PD.VS.PN ---
Subjective Subjective/Hospital Course Pt s/p attempted AT recanalization. On angio, found to have peroneal runoff and foot appears to have adequate perfusion for toe amputation. Slept well, no F/C. Podiatry and nephrology consulted yesterday. Objective Vitals/I&O Date Time Temp Pulse Resp B/P (MAP) Pulse Ox O2 Delivery O2 Flow Rate FiO2 12/04/17 05:35 21 12/04/17 00:00 97.5 71 18 157/80 (105) 100 12/03/17 20:00 96.3 68 18 174/81 (112) 100 12/03/17 19:40 68 18 161/75 (103) 99 Room Air 12/03/17 19:00 66 18 164/88 (113) 99 Room Air 12/03/17 18:00 75 18 164/78 (106) 99 Room Air 12/03/17 17:00 65 18 163/73 (103) 99 Room Air 12/03/17 16:45 62 18 162/79 (106) 98 Room Air 12/03/17 16:30 61 18 155/73 (100) 98 Room Air 12/03/17 16:15 61 18 164/75 (104) 98 Room Air 12/03/17 16:00 67 18 164/72 (102) 100 Room Air 12/03/17 15:45 98.1 62 18 139/64 (89) 99 Room Air 12/03/17 10:30 97.4 80 20 120/59 (79) 100 12/04/17 12/04/17 12/04/17 07:00 15:00 23:00 Intake Total 240 ml Output Total 1 ml Balance 239 ml Physical Exam No distress. Foot stable. Laboratory Laboratory Tests Test 12/03/17 11:00 12/03/17 11:05 12/03/17 11:20 White Blood Count 8.5 Red Blood Count 2.91 Hemoglobin 9.9 Hematocrit 28.6 Mean Corpuscular Volume 98.1 Mean Corpuscular Hemoglobin 33.8 Mean Corpuscular Hemoglobin Concent 34.5 Red Cell Distribution Width 14.4 Platelet Count 250 Mean Platelet Volume 7.7 Neutrophils (%) (Auto) 65.1 Lymphocytes (%) (Auto) 18.6 Monocytes (%) (Auto) 14.3 Eosinophils (%) (Auto) 1.1 Basophils (%) (Auto) 0.9 Neutrophils # (Auto) 5.5 Lymphocytes # (Auto) 1.6 Monocytes # (Auto) 1.2 Eosinophils # (Auto) 0.1 Basophils # (Auto) 0.1 CBC Comment DIFF FINAL Differential Comment Urine Color YELLOW Urine Turbidity HAZY Urine pH 6.0 Urine Specific [place] 1.015 Urine Protein 300 Urine Glucose (UA) TRACE Urine Ketones NEG Urine Occult Blood SMALL Urine Nitrite NEG Urine Bilirubin NEG Urine Urobilinogen LESS THAN 2.0 Urine Leukocyte Esterase SMALL Urine RBC 1 Urine WBC 19 Urine Squamous Epithelial Cells 2 Urine Transitional Epithelial Cells <1 Urine Bacteria OCC Urine Hyaline Casts 7 Urine Granular Casts 1 Urine Mucus FEW Microscopic Urinalysis Comment CULTURE INDICATED Prothrombin Time 11.4 Prothromb Time International Ratio 1.1 Activated Partial Thromboplast Time 26.9 Blood Urea Nitrogen 50 Creatinine 7.68 Random Glucose 146 Calcium Level 10.1 Sodium Level 137 Potassium Level 4.1 Chloride Level 100 Carbon Dioxide Level 27.2 Anion Gap 10 Estimat Glomerular Filtration Rate 7 Date/Time Source Procedure Growth Status 12/03/17 11:05 Urine Clean Catch Urine Culture Pending Received Imaging Last 48 hours Impressions Foot X-Ray 12/03/17 0000 Signed Impressions: Service Date/Time: Sunday, December 03, 2017 18:07 - CONCLUSION: Smooth margins at the osteotomy site of the distal phalanx 1st digit. Joaquin Groves MD Assessment and Plan Plan pt w/ PAD and ESRD 1. Toe amputation by podiatry today 2. HD per nephrology 3. Can d/c today after surgery or tomorrow. Discharge Planning today/tomorrow Kevin Leija MD Dec 04, 2017 07:27
[2017-12-04 08:00] VITALS: BP 114/55; PULSE 133; RESP 17; TEMP 97.7; O2SAT 94
[2017-12-04] MEDS: INSULIN ASPART SUPPLEMENTAL SCALE SQ SCH ×4 (08:00→21:47)
[2017-12-04 08:31] LABS: HEMATOCRIT 28.7 % (39.0-51.0); HEMOGLOBIN 9.9 GM/DL (13.0-17.0); MEAN CELL VOLUME 99.1 FL (80.0-100.0); MEAN CORPUSCULAR HGB CONC 34.3 % (32.0-36.0); MEAN PLATELET VOLUME 7.7 FL (7.0-11.0); PLATELET COUNT 248 TH/MM3 (150-450); RED CELL DISTRIBUTION WIDTH 14.6 % (11.6-17.2); WHITE BLOOD COUNT 8.6 TH/MM3 (4.0-11.0)
[2017-12-04] MEDS: VALSARTAN 160 MG TAB PO SCH (08:38)
[2017-12-04] MEDS: CLINDAMYCIN 150 MG CAP PO SCH ×3 (08:38→18:26)
[2017-12-04] MEDS: METOLAZONE 5 MG TAB PO SCH (08:39)
[2017-12-04] MEDS: CLOPIDOGREL 75 MG TAB PO SCH (08:39)
[2017-12-04] MEDS: BUMETANIDE 1 MG TAB PO SCH (08:40)
[2017-12-04] MEDS: CALCIUM ACETATE 667 MG CAP PO SCH ×3 (08:40→18:22)
[2017-12-04] MEDS: ASPIRIN 81 MG CHEW TAB PO SCH ×2 (08:40→08:45)
[2017-12-04] MEDS: glipiZIDE 5 MG TAB PO SCH (08:45)
[2017-12-04] MEDS: DOCUSATE SODIUM 50 MG/SENNA 8.6 MG TAB PO SCH ×2 (08:46→21:46)
[2017-12-04] MEDS ORDERED: INFLUENZA VIRUS VACCINE (QUADRIVALENT) 0.5 ML SYR IM ONE (09:00)
[2017-12-04 09:08] LABS: BICARBONATE 25.6 MEQ/L (21.0-32.0); CALCIUM 9.7 MG/DL (8.5-10.1); CREATININE 8.95 MG/DL (0.60-1.30)
--- NOTE | 2017-12-04 11:16 | HHI.NPPN ---
Subjective History of Present Illness patient is a 67 year old male with gangrene is toe ESRD DM Review of Systems Musculoskeletal MS: Pain/Stiffness Objective Data Data Vital Signs Date Time Temp Pulse Resp B/P (MAP) Pulse Ox O2 Delivery O2 Flow Rate FiO2 12/04/17 08:00 97.7 133 17 114/55 (74) 94 12/04/17 05:35 21 12/04/17 00:00 97.5 71 18 157/80 (105) 100 12/03/17 20:00 96.3 68 18 174/81 (112) 100 12/03/17 19:40 68 18 161/75 (103) 99 Room Air 12/03/17 19:00 66 18 164/88 (113) 99 Room Air 12/03/17 18:00 75 18 164/78 (106) 99 Room Air 12/03/17 17:00 65 18 163/73 (103) 99 Room Air 12/03/17 16:45 62 18 162/79 (106) 98 Room Air 12/03/17 16:30 61 18 155/73 (100) 98 Room Air 12/03/17 16:15 61 18 164/75 (104) 98 Room Air 12/03/17 16:00 67 18 164/72 (102) 100 Room Air 12/03/17 15:45 98.1 62 18 139/64 (89) 99 Room Air -: 12/04/17 0734 12/04/17 0734 Physical Exam General Appearance: Well Developed Neck Neck Exam: Neck Supple Pulmonary Resp Exam: Clear Bilaterally Cardiology CV Exam: Regular, Normal Sinus Rhythm Gastrointestinal/Abdomen GI Exam: Soft, Non-Tender, Bowel Sounds Present Integumentary Skin Exam: Lesion(s) Extremeties Extremities Exam: Trace Edema Neurologic Neuro Exam: Alert, Awake Assessment/Plan Problem List: (1) ESRD (end stage renal disease) ICD Codes: N18.6 - ESRD (end stage renal disease) Status: Acute Plan: Patient requires hemodialysis on Saturday, Saturday and Saturday Orders are initiated continue to monitor he is seen during dialysis UF 2 L 3 K bath going to have rt toe surgery He now follows with Dr. Abreu. (2) Gangrene of toe of right foot ICD Codes: I96 - Gangrene, not elsewhere classified Plan: Vascular surgery following (3) DM (diabetes mellitus) ICD Codes: E11.9 - DM (diabetes mellitus) Status: Acute Plan: Patient on sliding scale Gaby Russell MD Dec 04, 2017 11:16
[2017-12-04] MEDS ORDERED: DEXAMETHASONE SOD PHOS 4 MG/ML VIAL IV ONE (12:00)
[2017-12-04] MEDS ORDERED: PHENYLEPH/NS 1000 MCG/10 ML SYR IV ONE (12:00)
[2017-12-04] MEDS ORDERED: ONDANSETRON HCL 4 MG/2 ML VIAL IV ONE (12:00)
[2017-12-04] MEDS ORDERED: LIDOCAINE HCL 1% PF 5 ML SYRINGE OTHER ONE (12:00)
[2017-12-04] MEDS ORDERED: PROPOFOL 200 MG/20 ML AMP IV ONE (12:00)
--- NOTE | 2017-12-04 12:39 | PD.CONS ---
HPI Service [facility] Hospitalists Consult Requested By Vascular surgery Reason for Consult Medical management Primary Care Physician Mariah Caraballo MD Diagnoses: History of Present Illness 67 years old man with a past medical history of DM2 x 18 yrs, ESRD on HD and now with right big toe gangrene who was admitted for right leg angiogram with angioplasty however now require right big toe amputation. [facility] was consulted for medical management. patient had episode of hypoglycemia this AM however corrected per protocol. He denies any shortness of breath or chest pain. He is on HD per protocol M-W-F Review of Systems Except as stated in HPI: all other systems reviewed are Neg Past Family Social History Allergies: Coded Allergies: No Known Allergies (Unverified Allergy, Unknown, 12/03/17) Past Medical History Diabetes Mellitus 2 ESRD on HD Past Surgical History Right arm surgery back surgery Reported Medications See EMR Family History Noncontributory Social History He denies tobacco, alcohol or illicit drug intake Physical Exam Vital Signs Vital Signs Date Time Temp Pulse Resp B/P (MAP) Pulse Ox O2 Delivery O2 Flow Rate FiO2 12/04/17 08:00 97.7 133 17 114/55 (74) 94 12/04/17 05:35 21 12/04/17 00:00 97.5 71 18 157/80 (105) 100 12/03/17 20:00 96.3 68 18 174/81 (112) 100 12/03/17 19:40 68 18 161/75 (103) 99 Room Air 12/03/17 19:00 66 18 164/88 (113) 99 Room Air 12/03/17 18:00 75 18 164/78 (106) 99 Room Air 12/03/17 17:00 65 18 163/73 (103) 99 Room Air 12/03/17 16:45 62 18 162/79 (106) 98 Room Air 12/03/17 16:30 61 18 155/73 (100) 98 Room Air 12/03/17 16:15 61 18 164/75 (104) 98 Room Air 12/03/17 16:00 67 18 164/72 (102) 100 Room Air 12/03/17 15:45 98.1 62 18 139/64 (89) 99 Room Air Physical Exam GENERAL: This is a well-nourished, well-developed patient, in no apparent distress. SKIN: right big toe gangrene HEAD: Atraumatic. Normocephalic. No temporal or scalp tenderness. EYES: Pupils equal round and reactive. Extraocular motions intact. No scleral icterus. No injection or drainage. ENT: Nose without bleeding, purulent drainage or septal hematoma. Throat without erythema, tonsillar hypertrophy or exudate. Uvula midline. Airway patent. NECK: Trachea midline. No JVD or lymphadenopathy. Supple, nontender, no meningeal signs. CARDIOVASCULAR: Regular rate and rhythm without murmurs, gallops, or rubs. RESPIRATORY: Clear to auscultation. Breath sounds equal bilaterally. No wheezes , rales, or rhonchi. GASTROINTESTINAL: Abdomen soft, non-tender, nondistended. No hepato-splenomegaly , or palpable masses. No guarding. MUSCULOSKELETAL: Extremities without clubbing, cyanosis, or edema. No joint tenderness, effusion, or edema noted. No calf tenderness. Negative Homans sign bilaterally. NEUROLOGICAL: Awake and alert. Cranial nerves II through XII intact. Motor and sensory grossly within normal limits. Five out of 5 muscle strength in all muscle groups. Normal speech. Laboratory Laboratory Tests Test 12/04/17 07:34 White Blood Count 8.6 Red Blood Count 2.90 Hemoglobin 9.9 Hematocrit 28.7 Mean Corpuscular Volume 99.1 Mean Corpuscular Hemoglobin 34.0 Mean Corpuscular Hemoglobin Concent 34.3 Red Cell Distribution Width 14.6 Platelet Count 248 Mean Platelet Volume 7.7 Blood Urea Nitrogen 63 Creatinine 8.95 Random Glucose 50 Calcium Level 9.7 Sodium Level 136 Potassium Level 4.1 Chloride Level 98 Carbon Dioxide Level 25.6 Anion Gap 12 Estimat Glomerular Filtration Rate 6 Date/Time Source Procedure Growth Status 12/03/17 11:05 Urine Clean Catch Urine Culture - Preliminary NO GROWTH IN 24 HOURS. Resulted Result Diagram: 12/04/17 0734 12/04/17 0734 Imaging Last Impressions Foot X-Ray 12/03/17 0000 Signed Impressions: Service Date/Time: Sunday, December 03, 2017 18:07 - CONCLUSION: Smooth margins at the osteotomy site of the distal phalanx 1st digit. Joaquin Groves MD Assessment and Plan Problem List: (1) Toe osteomyelitis, right ICD Code: M86.9 - Osteomyelitis, unspecified (2) ESRD (end stage renal disease) on dialysis ICD Code: N18.6 - End stage renal disease; Z99.2 - Dependence on renal dialysis (3) Gangrene of toe of right foot ICD Code: I96 - Gangrene, not elsewhere classified (4) DM (diabetes mellitus) ICD Code: E11.9 - DM (diabetes mellitus) Status: Acute Assessment and Plan 67 years old man with Osteomyelitis right big toe Gangrene Right big toe Appreciate input from Podiatry who plan Hallus amputation today 12/04/17 PAD right leg angiogram with angioplasty Vascular surgery ff ESRD on HD HD schedule -- Appreciate input from Nephrology DM2 with episode of Hypoglycemia Treat Hypoglycemia per Protocol Continue with ISS, oral Hypoglycemic agent only for BG>100 CAD, Hypertension, Hyperlipidemia Continue with outpatient medications DVT prophylaxis: Heparin Thank you for this consultation Code Status Full code Discussed Condition With patient Ede Dominguez MD Dec 04, 2017 12:39
[2017-12-04 13:44] VITALS: BP 121/60; PULSE 68; RESP 17; TEMP 96.7; O2SAT 96
[2017-12-04] MEDS: SODIUM CHLORID 0.9% 500 ML IV PRN (15:15)
[2017-12-04] MEDS ORDERED: DO NOT ADM ANY ANTICOAGULANT DRUGS PRN (17:19)
--- NOTE | 2017-12-04 17:35 | HHI.PR ---
Immediate Post Op Note Procedure Date: Dec 04, 2017 Pre Op Diagnosis: 1. gangrene right hallux 2. ulcers right heel and lateral foot Post Op Diagnosis: Same Surgeon: Carole Altman DPM Program Host(s): Staff Procedure: 1. Amputation right hallux 2. debridement of ulcers Right heel and right lateral foot Findings: Consistent with diagnosis. Right hallux disarticulated at MTP joint level. Minimal bleeding noted. No purulence noted. Sesamoid apparatus also removed. Culture taken prior to Irrigation with normal saline, followed by primary closure with 2-0 nylon. Xeroform, 4x4, cast padding, efren to right foot. Ulceration to right lateral foot lateral 5th metatarsophalangeal joint area measures 1.8cm diameter and 0.3cm depth, down to level of 5th MTP joint capsule and fibronecrotic base. Excisional debridement performed with #15 blade and curette of fibronecrotic tissue down to level of joint capsule with minimal bleeding noted. Ulceration to right plantar central heel area with fatty necrotic tissue measures 3cm diameter and 2cm depth, down to level of plantar fascia. Culture taken after excisional debridement performed with #15 blade and curette of fibronecrotic tissue down to level of plantar fascia with minimal bleeding noted. Very large defect noted. Ulcer areas irrigated, followed by xeroform, 4x4, cast padding, efren R foot. Nonweightbearing right foot in surgical shoe. Case management consult to arrange follow up at [place] prior to d/c. He will need eval for hyperbarics, as well. He is very high risk for readmission with further infection regarding these ulcer areas. Patient will follow up with me only regarding postop follow up for hallux amputation, but wound care center for further wound care. Additional Information: no tourniquet utilized. Complications: none Specimen(s) removed: 1. right hallux and sesamoids to pathology 2. culture right hallux area 3. culture right heel Estimated blood loss: <5mL Anesthesia: MAC, Local (10mL 0.5% marcaine plain) Drains: None Tourniquet time (min at mmHg) n/a Patient to: PACU Patient Condition: Good Date/Time of Procedure: SEE SURGICAL CARE RECORD Carole Altman DPM Dec 04, 2017 17:35
[2017-12-04] MEDS: COLLAGENASE OINT 30 GM TUBE TOPICAL SCH (18:00)
--- NOTE | 2017-12-04 18:38 | RADRPT ---
EXAM DATE/TIME: 12/04/2017 17:48 [place] COMPARISON: FOOT RIGHT COMPLETE ([id number]), December 03, 2017, 18:07. INDICATIONS : Status post 1st digit, right foot amputation. MEDICAL HISTORY : None. SURGICAL HISTORY : None. ENCOUNTER: Initial ACUITY: 1 day PAIN SCORE: 0/10 LOCATION: Right Foot, 1st digit. FINDINGS: Status post phalangeal amputation of the 1st digit. 1st metatarsus is intact without evidence of bon y resorption or periosteal reaction. Diffuse vascular calcification in the interdigital arteries. D egeneration of the 2nd through 5th digits is stable from prior. On the lateral view, there is a focal lucency in the soft tissues of the plantar calcaneal region, of uncertain significance. CONCLUSION: 1. Postoperative plan show amputation 1st digit.. 2. Ill-defined radiolucency in the subcutaneous soft tissues plantar to the calcaneus. Recommend cl inical correlation. Joaquin Groves MD on December 04, 2017 at 18:34 Board Certified Radiologist. This report was verified electronically.
[2017-12-04 20:00] VITALS: BP 139/75; PULSE 70; PULSE 73; RESP 18; TEMP 98.5; O2SAT 100
[2017-12-04] MEDS: GABAPENTIN 300 MG CAP PO SCH (21:46)
[2017-12-04] MEDS: ATORVASTATIN 10 MG TAB PO SCH (21:46)
[2017-12-05] VITALS: BP 140/75; PULSE 80; PULSE 81; RESP 18; TEMP 99; O2SAT 97
[2017-12-05 04:00] VITALS: BP 131/66; PULSE 71; RESP 18; TEMP 99.5; O2SAT 98
[2017-12-05] MEDS: HEPARIN SODIUM - SQ 10,000 UNITS/ML VIAL SQ SCH ×2 (06:00→11:57)
[2017-12-05 08:00] VITALS: BP 143/77; PULSE 71; RESP 19; TEMP 96.8; O2SAT 99
[2017-12-05] MEDS: INSULIN ASPART SUPPLEMENTAL SCALE SQ SCH ×3 (08:25→16:26)
[2017-12-05] MEDS: ASPIRIN 81 MG CHEW TAB PO SCH (08:26)
[2017-12-05] MEDS: BUMETANIDE 1 MG TAB PO SCH (08:30)
[2017-12-05] MEDS: CLINDAMYCIN 150 MG CAP PO SCH ×3 (08:30→17:18)
[2017-12-05] MEDS: glipiZIDE 5 MG TAB PO SCH (08:31)
[2017-12-05] MEDS: VALSARTAN 160 MG TAB PO SCH (08:31)
[2017-12-05] MEDS: METOLAZONE 5 MG TAB PO SCH (08:32)
[2017-12-05] MEDS: DOCUSATE SODIUM 50 MG/SENNA 8.6 MG TAB PO SCH (08:33)
[2017-12-05] MEDS: CALCIUM ACETATE 667 MG CAP PO SCH ×3 (08:33→17:18)
[2017-12-05] MEDS: CLOPIDOGREL 75 MG TAB PO SCH (08:34)
[2017-12-05] MEDS: COLLAGENASE OINT 30 GM TUBE TOPICAL SCH (08:35)
--- NOTE | 2017-12-05 10:33 | PD.VS.PN ---
Subjective Subjective/Hospital Course Pt w/o complaints this am Pt alert in NAD Pt reported improved R LE discomfort Post op dressing to R foot I/C/D Objective Vitals/I&O Date Time Temp Pulse Resp B/P (MAP) Pulse Ox O2 Delivery O2 Flow Rate FiO2 12/05/17 08:00 96.8 71 19 143/77 (99) 99 12/05/17 04:00 99.5 71 18 131/66 (87) 98 12/05/17 00:00 99.0 80 18 140/75 (96) 97 12/05/17 00:00 81 12/04/17 20:00 98.5 70 18 139/75 (96) 100 12/04/17 20:00 73 12/04/17 18:00 98.7 68 20 144/61 (88) 95 Nasal Cannula 2 12/04/17 17:45 69 20 145/61 (89) 95 Nasal Cannula 2 12/04/17 17:30 78 20 116/69 (85) 94 Nasal Cannula 2 12/04/17 17:19 98.7 67 20 116/58 (77) 96 Nasal Cannula 2 12/04/17 13:44 96.7 68 17 121/60 (80) 96 12/05/17 12/05/17 12/05/17 07:00 15:00 23:00 Intake Total 360 ml Balance 360 ml Physical Exam GENERAL: A&OX3, NAD, GCS 15 SKIN: Warm and dry. LE warm w/ motor intact MUSCULOSKELETAL: No cyanosis, or edema. Post op dressing to R foot I/C/D Laboratory Date/Time Source Procedure Growth Status 12/03/17 11:05 Urine Clean Catch Urine Culture - Final NO GROWTH IN 48 HOURS. Complete 12/04/17 16:57 Wound Heel Fungal Smear - Final NO FUNGAL ELEMENTS SEEN. Resulted 12/04/17 16:57 Wound Heel Fungal Culture Pending Resulted Imaging Last 48 hours Impressions Foot X-Ray 12/04/17 0000 Signed Impressions: Service Date/Time: Monday, December 04, 2017 17:48 - CONCLUSION: 1. Postoperative plan show amputation 1st digit.. 2. Ill-defined radiolucency in the subcutaneous soft tissues plantar to the calcaneus. Recommend clinical correlation. Joaquin Groves MD Assessment and Plan Assessment: (1) PVD (peripheral vascular disease) Plan Pt w/ PAD and ESRD Pt s/p Toe amputation by podiatry HD per nephrology Pt doing well this am w/o complaints Plan Pt clear for D/C w/ [facility] Arranged out pt f/u with a surveillance GARY Pt to F/U OP w/ Podiatry in 1W Veronica Locke NP [facility] [phone] Discharge Planning today w/ Veronica Leon Dec 05, 2017 10:33
--- NOTE | 2017-12-05 10:38 | HHI.FF ---
Face to Face Verification Diagnosis: (1) Amputated toe of right foot (2) PVD (peripheral vascular disease) Physical Therapy Order: Evaluate and Treat, Improve ambulation, Strength and gait training Home Health Nursing Order: Signs/symptoms of disease process Wound care and dressing changes Instructions: Orders per Podiatry I have seen patient Predrag Colich on 12/05/17. My clinical findings support the need for the requested home health care services because: Pt is medically clear for d/c but will need out pt services for optimal wound healing High risk of falls Infection w/ risk of complications I certify that my clinical findings support that this patient is homebound because: Pt is medically clear for d/c but will need out pt services for optimal wound healing Post-op weakness Unsteady gait/balance Veronica Locke Dec 05, 2017 10:38
--- NOTE | 2017-12-05 10:45 | HHI.FF ---
Face to Face Verification Diagnosis: (1) Amputated toe of right foot Physical Therapy Order: Evaluate and Treat Instructions: Nonweightbearing right foot with walker Home Health Nursing Instructions: Saturday/saturday/saturday dressing change to lateral right forefoot and plantar heel areas with santyl, adaptic, 4x4, cling, efren. Distal right medial foot toe amputation site needs dry sterile dressing with adaptic, 4x4, cling, efren (NO SANTYL HERE). Nonweightbearing right foot with walker. I have seen patient Predrag Colich on 12/05/17. My clinical findings support the need for the requested home health care services because: Patient needs wound care and to be nonweightbearing for limb salvage right lower extremity High risk of falls Infection w/ risk of complications I certify that my clinical findings support that this patient is homebound because: Unable to leave home without taxing effort. Post-op weakness Unsteady gait/balance Carole Altman DPM Dec 05, 2017 10:45
--- NOTE | 2017-12-05 11:06 | PD.VS.DC ---
Discharge Summary Admission Date: Dec 03, 2017 at 15:36 Discharge Date: Dec 05, 2017 Admission Diagnosis: (1) PVD (peripheral vascular disease) Discharge Diagnosis: (1) PVD (peripheral vascular disease) ICD Codes: I73.9 - Peripheral vascular disease, unspecified (2) Amputated toe of right foot ICD Codes: Z89.421 - Acquired absence of other right toe(s) Brief History from admission 67/M w/ Osteo, R foot, PAD Pt w/ persistent foot/heel pain Procedure(s): U/S guided access to DP Pedal angiogram Significant Findings GENERAL: A&OX3, NAD, GCS 15 SKIN: Warm and dry. LE warm w/ motor intact MUSCULOSKELETAL: No cyanosis, or edema. Post op dressing to R foot I/C/D Foot stable Laboratory Tests Test 12/03/17 11:00 12/03/17 11:05 12/03/17 11:20 12/04/17 07:34 Red Blood Count 2.91 MIL/MM3 (4.50-5.90) 2.90 MIL/MM3 (4.50-5.90) Hemoglobin 9.9 GM/DL (13.0-17.0) 9.9 GM/DL (13.0-17.0) Hematocrit 28.6 % (39.0-51.0) 28.7 % (39.0-51.0) Monocytes (%) (Auto) 14.3 % (0.0-8.0) Monocytes # (Auto) 1.2 TH/MM3 (0-0.9) Urine Turbidity HAZY (CLEAR) Urine Protein 300 mg/dL (NEG-TRACE) Urine Occult Blood SMALL (NEG) Urine Leukocyte Esterase SMALL (NEG) Urine WBC 19 /hpf (0-5) Urine Bacteria OCC /hpf (NONE) Urine Mucus FEW /lpf (OCC) Blood Urea Nitrogen 50 MG/DL (7-18) 63 MG/DL (7-18) Creatinine 7.68 MG/DL (0.60-1.30) 8.95 MG/DL (0.60-1.30) Random Glucose 146 MG/DL (74-106) 50 MG/DL (74-106) Estimat Glomerular Filtration Rate 7 ML/MIN (>89) 6 ML/MIN (>89) Hospital Course: 67/M w/ Osteo, R foot, PAD Pt w/ persistent foot/heel pain Pt s/p attempted AT recanalization. On angio was found to have peroneal runoff / RIGHT foot appeared to have adequate perfusion for toe amputation. Pt s/p Amputation right hallux/debridement of ulcers Right heel and right lateral foot ([place]) POD 1 doing well Pt clear for d/c with HHS and out pt f/u Arranged out pt f/u Allergies Coded Allergies Type Severity Reaction Last Updated Verified No Known Allergies Allergy Unknown 12/03/17 No Recent Impressions Foot X-Ray 12/04/17 0000 Signed Impressions: Service Date/Time: Monday, December 04, 2017 17:48 - CONCLUSION: 1. Postoperative plan show amputation 1st digit.. 2. Ill-defined radiolucency in the subcutaneous soft tissues plantar to the calcaneus. Recommend clinical correlation. Joaquin Groves MD Foot X-Ray 12/03/17 0000 Signed Impressions: Service Date/Time: Sunday, December 03, 2017 18:07 - CONCLUSION: Smooth margins at the osteotomy site of the distal phalanx 1st digit. Joaquin Groves MD 12/03/17 12/03/17 12/04/17 12/04/17 12/05/17 12/05/17 06:00 18:00 06:00 18:00 06:00 18:00 Intake Total 200 ml 720 ml 150 ml 360 ml Output Total 10 ml 1 ml 1505 ml Balance 190 ml 719 ml -1355 ml 360 ml Intake Oral 720 ml 0 ml 360 ml IV Total 150 ml Other 200 ml Output Urine Total 1 ml Hemodialysis 1500 ml Estimated Blood Loss 10 ml 5 ml # Voids 2 1 # Bowel Movements 1 0 0 Laboratory Tests Test 12/03/17 11:00 12/03/17 11:05 12/03/17 11:20 12/04/17 07:34 White Blood Count 8.5 TH/MM3 8.6 TH/MM3 Red Blood Count 2.91 MIL/MM3 2.90 MIL/MM3 Hemoglobin 9.9 GM/DL 9.9 GM/DL Hematocrit 28.6 % 28.7 % Mean Corpuscular Volume 98.1 FL 99.1 FL Mean Corpuscular Hemoglobin 33.8 PG 34.0 PG Mean Corpuscular Hemoglobin Concent 34.5 % 34.3 % Red Cell Distribution Width 14.4 % 14.6 % Platelet Count 250 TH/MM3 248 TH/MM3 Mean Platelet Volume 7.7 FL 7.7 FL Neutrophils (%) (Auto) 65.1 % Lymphocytes (%) (Auto) 18.6 % Monocytes (%) (Auto) 14.3 % Eosinophils (%) (Auto) 1.1 % Basophils (%) (Auto) 0.9 % Neutrophils # (Auto) 5.5 TH/MM3 Lymphocytes # (Auto) 1.6 TH/MM3 Monocytes # (Auto) 1.2 TH/MM3 Eosinophils # (Auto) 0.1 TH/MM3 Basophils # (Auto) 0.1 TH/MM3 CBC Comment DIFF FINAL Differential Comment Urine Color YELLOW Urine Turbidity HAZY Urine pH 6.0 Urine Specific [place] 1.015 Urine Protein 300 mg/dL Urine Glucose (UA) TRACE mg/dL Urine Ketones NEG mg/dL Urine Occult Blood SMALL Urine Nitrite NEG Urine Bilirubin NEG Urine Urobilinogen LESS THAN 2.0 MG/DL Urine Leukocyte Esterase SMALL Urine RBC 1 /hpf Urine WBC 19 /hpf Urine Squamous Epithelial Cells 2 /hpf Urine Transitional Epithelial Cells <1 /hpf Urine Bacteria OCC /hpf Urine Hyaline Casts 7 /lpf Urine Granular Casts 1 /lpf Urine Mucus FEW /lpf Microscopic Urinalysis Comment CULTURE INDICATED Prothrombin Time 11.4 SEC Prothromb Time International Ratio 1.1 RATIO Activated Partial Thromboplast Time 26.9 SEC Blood Urea Nitrogen 50 MG/DL 63 MG/DL Creatinine 7.68 MG/DL 8.95 MG/DL Random Glucose 146 MG/DL 50 MG/DL Calcium Level 10.1 MG/DL 9.7 MG/DL Sodium Level 137 MEQ/L 136 MEQ/L Potassium Level 4.1 MEQ/L 4.1 MEQ/L Chloride Level 100 MEQ/L 98 MEQ/L Carbon Dioxide Level 27.2 MEQ/L 25.6 MEQ/L Anion Gap 10 MEQ/L 12 MEQ/L Estimat Glomerular Filtration Rate 7 ML/MIN 6 ML/MIN Orders Procedure Category Date Status Time Lactated Ringer's MED 12/03/17 In Process 1000 Ml Inj (Lr 1000 M 10:15 Sodium Chlorid 0.9% MED 12/03/17 In Process 500 Ml Inj (Ns 500 M 10:15 Metoprolol Tartrate MED 12/03/17 In Process (Lopressor) 10:15 Povidone Iod 5% MED 12/03/17 In Process Antisepsis Kit 10:15 Chlorhexidine 2% MED 12/03/17 In Process Cloth (Chlorhexidine 10:15 Electrocardiogram CAV 12/03/17 Resulted 10:28 Complete Blood Count LAB 12/03/17 Complete With Diff 10:28 Basic Metabolic Panel LAB 12/03/17 Complete (Bmp) 10:28 Urinalysis - C+S If LAB 12/03/17 Complete Indicated 10:28 Prothrombin Time / LAB 12/03/17 Complete Inr (Pt) 10:28 Act Partial Throm LAB 12/03/17 Complete Time (Ptt) 10:28 Type And Screen BBK 12/03/17 Complete 10:28 Heparin Inj (Heparin MED 12/03/17 Complete Inj) 11:08 Urine Culture MARIA E 12/03/17 Complete 11:05 Endovascular Cath CATH 12/03/17 Logged Protamine Sulfate Inj MED 12/03/17 Complete (Protamine Sulfate 14:52 Heparin Inj (Heparin MED 12/03/17 Complete Inj) 14:52 Heparin-Ns/Pf Inj MED 12/03/17 Complete (Heparin-Ns/Pf Inj) 14:52 Fentanyl Inj MED 12/03/17 Complete (Fentanyl Inj) 14:54 Vancomycin Inj MED 12/03/17 Complete (Vancomycin Inj) 14:54 Sds Pre Op Care [facility] 12/03/17 Complete Admit To Inpatient ADMITTING 12/03/17 Transmitted Code Status CODE 12/03/17 Transmitted 15:33 Vital Signs (Adult) TANIA 12/03/17 In Process 15:33 Wine Pasteurizer / TANIA 12/03/17 In Process Telemetry 15:33 Activity Oob Ad Alicia TANIA 12/03/17 In Process 15:33 Precautions TANIA 12/03/17 In Process 15:33 Basic Metabolic Panel LAB 12/04/17 Complete (Bmp) 06:00 Cbc No Diff, Includes LAB 12/04/17 Complete Plts 06:00 Consult Nephrology CONS 12/03/17 Transmitted Aspirin Chew (Aspirin MED 12/04/17 In Process Chew) 09:00 Oxycodone (Roxicodone) MED 12/03/17 In Process 15:45 Hydromorphone MED 12/03/17 In Process (Dilaudid) 15:45 Heparin Inj (Heparin MED 12/03/17 In Process Inj) 15:45 Docusate Sodium-Senna MED 12/03/17 In Process (Carissa-Colace) 21:00 Sennosides (Senokot) MED 12/03/17 In Process 15:45 Bisacodyl Supp MED 12/03/17 In Process (Dulcolax Supp) 15:45 Lactulose Liq MED 12/03/17 In Process (Lactulose Liq) 15:45 Consult Podiatry CONS 12/03/17 Transmitted Atorvastatin (Lipitor) MED 12/03/17 In Process 21:00 Bumetanide MED 12/04/17 In Process (Bumetanide) 09:00 Calcium Acetate MED 12/03/17 In Process (Phoslo) 18:00 Clindamycin (Cleocin) MED 12/03/17 In Process 18:00 Clopidogrel (Plavix) MED 12/04/17 In Process 09:00 Gabapentin (Neurontin) MED 12/03/17 In Process 21:00 Glipizide (Glucotrol) MED 12/04/17 In Process 09:00 Metolazone (Zaroxolyn) MED 12/04/17 In Process 09:00 Amlodipine (Norvasc) MED 12/04/17 In Process 09:00 Valsartan (Diovan) MED 12/04/17 In Process 09:00 (Hub Use Only)Inp Phy CONS 12/03/17 Transmitted Cons/Ref (Hub Use Only)Inp Phy CONS 12/03/17 Transmitted Cons/Ref Misc Nursing MED 12/03/17 Complete Information 17:00 Consult Hospitalist CONS 12/03/17 Transmitted Diet Npo DIET 12/03/17 Complete Dinner Foot, Complete RADDIAG 12/03/17 Resulted ([id number]) Blood Flow Rate TANIA 12/03/17 In Process 19:00 Dialysate Flow Rate TANIA 12/03/17 In Process 19:00 Dialyzer TANIA 12/03/17 In Process 19:00 Concentrate TANIA 12/03/17 In Process 19:00 Acid Concentrate TANIA 12/03/17 In Process 19:00 Length Of Dialysis TANIA 12/03/17 In Process 19:00 Frequency Of Dialysis TANIA 12/03/17 In Process 19:00 Dialysis Obtain TANIA 12/03/17 In Process 19:00 Needle Size TANIA 12/03/17 In Process 19:00 Dialysis Schedule TANIA 12/03/17 In Process 19:00 Resp Oxygen Shadi C RSP 12/03/17 Logged Titrat 1-4 L Dialysis Weight TANIA 12/03/17 In Process 19:00 ^ Obtain As Needed TANIA 12/03/17 In Process 19:00 Sodium Chlor 0.9% MED 12/03/17 In Process 1000 Ml Inj (Ns 1000 M 19:00 Heparin Inj (Heparin MED 12/03/17 In Process Inj) 19:00 Sodium Chlor 0.9% MED 12/03/17 In Process 1000 Ml Inj (Ns 1000 M 19:00 Sodium Chlor 0.9% MED 12/03/17 In Process 1000 Ml Inj (Ns 1000 M 19:00 Mannitol Inj MED 12/03/17 In Process (Mannitol Inj) 19:00 Albumin 25% Inj MED 12/03/17 In Process (Albumin 25% Inj) 19:00 Sodium Chloride 0.9% MED 12/03/17 In Process Flush (Ns Flush) 19:00 Heparin Inj (Heparin MED 12/03/17 In Process Inj) 19:00 Gentamicin Inj MED 12/03/17 In Process (Gentamicin Inj) 19:00 Ondansetron Inj MED 12/03/17 In Process (Zofran Inj) 19:00 Acetaminophen MED 12/03/17 In Process (Tylenol) 19:00 Diphenhydramine MED 12/03/17 In Process (Benadryl) 19:00 Nitroglycerin Sl MED 12/03/17 In Process (Nitrostat Sl) 19:00 Clonidine (Catapres) MED 12/03/17 In Process 19:00 Epoetin Shar Inj MED 12/03/17 In Process (Epogen Inj) 19:00 Gelatin 12 Mm/7 Mm MED 12/03/17 In Process Top (Gelfoam 12 Mm/7 19:00 Bedside Glucose TANIA 12/03/17 In Process 19:34 Blood Glucose Goal TANIA 12/03/17 In Process (Criteria) 19:34 Hypoglycemia 70 Mg/Dl TANIA 12/03/17 In Process Or < 19:[address]: Other TANIA 12/03/17 In Process 19:34 Dextrose 50% In Johanna MED 12/03/17 In Process (Vial) Inj (D50w (Vi 19:45 Glucagon Inj MED 12/03/17 In Process (Glucagon Inj) 19:45 Insulin Aspart MED 12/03/17 In Process Supplemtl Scale 21:00 Diet Heart Healthy DIET 12/03/17 Complete Dinner Class Iv Pacu Ea 30 [facility] 12/03/17 Complete MIN General/Pacu [facility] 12/03/17 Complete Bedside Glucose [facility] 12/03/17 Complete Pacu Med Holding [facility] 12/03/17 Complete Hourly Diet Npo DIET 12/04/17 Complete Breakfast Diet Progression TANIA 12/04/17 In Process Instructions 02:05 Scd / Jorge / Foot Pump TANIA 12/04/17 In Process 02:05 ^ Iv Setup For Or TANIA 12/04/17 In Process 02:05 ^ Iv Piggyback For Or TANIA 12/04/17 In Process 02:05 (Hub Use Only)Inp Phy CONS 12/04/17 Transmitted Cons/Ref Influenza (Quad) MED 12/04/17 Complete Vaccine Inj (Flu 09:00 (Hub Use Only)Inp Phy CONS 12/04/17 Transmitted Cons/Ref Fentanyl Inj MED 12/04/17 Complete (Fentanyl Inj) 17:22 Diet 1800 Ada Cons DIET 12/04/17 Transmitted Carb Dinner Foot, Complete RADDIAG 12/04/17 Resulted ([id number]) Shoe Post Op ORTHO 12/04/17 Logged Consult Pt Eval & PT 12/04/17 Logged Treat 17:35 Collagenase Oint MED 12/04/17 In Process (Santyl Oint) 18:00 Case Management CONS 12/04/17 Transmitted Consult Misc Nursing MED 12/04/17 In Process Information 17:19 Class Iv Pacu Ea 30 [facility] 12/04/17 Complete MIN General/Pacu [facility] 12/04/17 Complete Post Anesthesia Oxygen [facility] 12/04/17 Complete Bedside Glucose [facility] 12/04/17 Complete Tissue Afb Culture MARIA E 12/04/17 In Process And Stain 19:09 Tissue Culture And MARIA E 12/04/17 In Process Gram Stain 19:09 Tissue Fungus Culture MARIA E 12/04/[address] 19:09 Tissue Afb Culture MARIA E 12/04/17 In Process And Stain 19:10 Tissue Culture And MARIA E 12/04/17 In Process Gram Stain 19:10 Tissue Fungus Culture MARIA E 12/04/[address] 19:10 Shoe Cast ORTHO 12/04/17 Complete Hospitalist Clear For DISCHARGE 12/05/17 Transmitted Discharg Attending Discharge DISCHARGE 12/05/17 Transmitted Order Vital Signs Date Time Temp Pulse Resp B/P (MAP) Pulse Ox O2 Delivery O2 Flow Rate FiO2 12/05/17 08:00 96.8 71 19 143/77 (99) 99 12/05/17 04:00 99.5 71 18 131/66 (87) 98 12/05/17 00:00 99.0 80 18 140/75 (96) 97 12/05/17 00:00 81 12/04/17 20:00 98.5 70 18 139/75 (96) 100 12/04/17 20:00 73 12/04/17 18:00 98.7 68 20 144/61 (88) 95 Nasal Cannula 2 12/04/17 17:45 69 20 145/61 (89) 95 Nasal Cannula 2 12/04/17 17:30 78 20 116/69 (85) 94 Nasal Cannula 2 12/04/17 17:19 98.7 67 20 116/58 (77) 96 Nasal Cannula 2 12/04/17 13:44 96.7 68 17 121/60 (80) 96 12/04/17 08:00 97.7 133 17 114/55 (74) 94 12/04/17 05:35 21 12/04/17 00:00 97.5 71 18 157/80 (105) 100 12/03/17 20:00 96.3 68 18 174/81 (112) 100 12/03/17 19:40 68 18 161/75 (103) 99 Room Air 12/03/17 19:00 66 18 164/88 (113) 99 Room Air 12/03/17 18:00 75 18 164/78 (106) 99 Room Air 12/03/17 17:00 65 18 163/73 (103) 99 Room Air 12/03/17 16:45 62 18 162/79 (106) 98 Room Air 12/03/17 16:30 61 18 155/73 (100) 98 Room Air 12/03/17 16:15 61 18 164/75 (104) 98 Room Air 12/03/17 16:00 67 18 164/72 (102) 100 Room Air 3/6/18 15:45 98.1 62 18 139/64 (89) 99 Room Air 12/03/17 10:30 97.4 80 20 120/59 (79) 100 Discharge Condition: Good Discharge Disposition: Disch w/ Home Health Serv Discharge Instructions: DIET May resume a dialysis diet ACTIVITY Activity as tolerated Home Health Services [facility] will call you to arrange f/u WOUND CARE As per Podiatry FOLLOW UP F/U in 2W in our out pt clinic F/U in 1W with Podiatry Any questions or concerns: Call [facility] at [facility] [phone] Veronica Locke Dec 05, 2017 11:05
--- NOTE | 2017-12-05 11:35 | HHI.PR ---
Subjective Remarks patient seen and examined reports some improvement of right leg discomfort Afebrile Objective Vitals Vital Signs Date Time Temp Pulse Resp B/P (MAP) Pulse Ox O2 Delivery O2 Flow Rate FiO2 12/05/17 08:00 96.8 71 19 143/77 (99) 99 12/05/17 04:00 99.5 71 18 131/66 (87) 98 12/05/17 00:00 99.0 80 18 140/75 (96) 97 12/05/17 00:00 81 12/04/17 20:00 98.5 70 18 139/75 (96) 100 12/04/17 20:00 73 12/04/17 18:00 98.7 68 20 144/61 (88) 95 Nasal Cannula 2 12/04/17 17:45 69 20 145/61 (89) 95 Nasal Cannula 2 12/04/17 17:30 78 20 116/69 (85) 94 Nasal Cannula 2 12/04/17 17:19 98.7 67 20 116/58 (77) 96 Nasal Cannula 2 12/04/17 13:44 96.7 68 17 121/60 (80) 96 I/O 12/04/17 12/04/17 12/04/17 12/05/17 12/05/17 12/05/17 07:00 15:00 23:00 07:00 15:00 23:00 Intake Total 240 ml 150 ml 360 ml Output Total 1 ml 1500 ml 5 ml Balance 239 ml -1500 ml 145 ml 360 ml Intake Oral 240 ml 0 ml 360 ml IV Total 150 ml Output Urine Total 1 ml Hemodialysis 1500 ml Estimated Blood Loss 5 ml # Voids 2 1 # Bowel Movements 1 0 0 Result Diagram: 12/04/17 0734 12/04/17 0734 Imaging Last Impressions Foot X-Ray 12/04/17 0000 Signed Impressions: Service Date/Time: Monday, December 04, 2017 17:48 - CONCLUSION: 1. Postoperative plan show amputation 1st digit.. 2. Ill-defined radiolucency in the subcutaneous soft tissues plantar to the calcaneus. Recommend clinical correlation. Joaquin Groves MD Objective Remarks GENERAL: SKIN: Warm and dry. HEAD: Normocephalic. EYES: No scleral icterus. No injection or drainage. NECK: Supple, trachea midline. No JVD or lymphadenopathy. CARDIOVASCULAR: Regular rate and rhythm without murmurs, gallops, or rubs. RESPIRATORY: Breath sounds equal bilaterally. No accessory muscle use. GASTROINTESTINAL: Abdomen soft, non-tender, nondistended. MUSCULOSKELETAL: No cyanosis, or edema. dressing over right foot BACK: Nontender without obvious deformity. No CVA tenderness. Procedures 1. Amputation right hallux 2. debridement of ulcers Right heel and right lateral foot A/P Problem List: (1) Toe osteomyelitis, right ICD Code: M86.9 - Osteomyelitis, unspecified (2) ESRD (end stage renal disease) on dialysis ICD Code: N18.6 - End stage renal disease; Z99.2 - Dependence on renal dialysis (3) Gangrene of toe of right foot ICD Code: I96 - Gangrene, not elsewhere classified (4) DM (diabetes mellitus) ICD Code: E11.9 - DM (diabetes mellitus) Status: Acute Assessment and Plan 67 years old man with Osteomyelitis right big toe Gangrene Right big toe 1. Amputation right hallux 2. debridement of ulcers Right heel and right lateral foot Appreciate input from Podiatry PAD right leg angiogram with angioplasty Vascular surgery ff ESRD on HD HD schedule - Appreciate input from Nephrology DM2 with episode of Hypoglycemia (Resolved) Continue with ISS, resume oral Hypoglycemic agent only for BG>100 CAD, Hypertension, Hyperlipidemia Continue with outpatient medications DVT prophylaxis: Heparin Discharge Planning Hospitalist clear for discharge Ede Dominguez MD Dec 05, 2017 11:35
[2017-12-05 12:00] VITALS: BP 143/68; PULSE 75; RESP 19; TEMP 96.5; O2SAT 97
--- NOTE | 2017-12-05 16:09 | HHI.NPPN ---
Subjective History of Present Illness patient is a 67 year old male with gangrene is toe ESRD DM Review of Systems Musculoskeletal MS: Pain/Stiffness Objective Data Data Vital Signs Date Time Temp Pulse Resp B/P (MAP) Pulse Ox O2 Delivery O2 Flow Rate FiO2 12/05/17 12:00 96.5 75 19 143/68 (93) 97 12/05/17 08:00 96.8 71 19 143/77 (99) 99 12/05/17 04:00 99.5 71 18 131/66 (87) 98 12/05/17 00:00 99.0 80 18 140/75 (96) 97 12/05/17 00:00 81 12/04/17 20:00 98.5 70 18 139/75 (96) 100 12/04/17 20:00 73 12/04/17 18:00 98.7 68 20 144/61 (88) 95 Nasal Cannula 2 12/04/17 17:45 69 20 145/61 (89) 95 Nasal Cannula 2 12/04/17 17:30 78 20 116/69 (85) 94 Nasal Cannula 2 12/04/17 17:19 98.7 67 20 116/58 (77) 96 Nasal Cannula 2 -: 12/04/17 0734 12/04/17 0734 Microbiology 12/04/17 Fungal Smear - Final, Resulted NO FUNGAL ELEMENTS SEEN. 12/04/17 Fungal Culture, Resulted Pending 12/04/17 Acid Fast Stain, Received Pending 12/04/17 Mycobacterial Culture, Received Pending 12/04/17 Gram Stain - Final, Resulted 12/04/17 Wound Culture - Preliminary, Resulted NO GROWTH IN 24 HOURS. 12/04/17 Fungal Smear - Final, Resulted NO FUNGAL ELEMENTS SEEN. 12/04/17 Fungal Culture, Resulted Pending 12/04/17 Acid Fast Stain, Received Pending 12/04/17 Mycobacterial Culture, Received Pending 12/04/17 Gram Stain - Final, Resulted 12/04/17 Wound Culture - Preliminary, Resulted NO GROWTH IN 24 HOURS. Physical Exam General Appearance: Well Developed Neck Neck Exam: Neck Supple Pulmonary Resp Exam: Clear Bilaterally Cardiology CV Exam: Regular, Normal Sinus Rhythm Gastrointestinal/Abdomen GI Exam: Soft, Non-Tender, Bowel Sounds Present Integumentary Skin Exam: Lesion(s) Extremeties Extremities Exam: Trace Edema Neurologic Neuro Exam: Alert, Awake Assessment/Plan Problem List: (1) ESRD (end stage renal disease) ICD Codes: N18.6 - ESRD (end stage renal disease) Status: Acute Plan: Patient requires hemodialysis on Saturday, Saturday and Saturday Orders are initiated continue to monitor s/p Rt Toe amputation He now follows with Dr. Abreu. (2) Gangrene of toe of right foot ICD Codes: I96 - Gangrene, not elsewhere classified Plan: Vascular surgery following (3) DM (diabetes mellitus) ICD Codes: E11.9 - DM (diabetes mellitus) Status: Acute Plan: Patient needs sliding scale, it was ordered Gaby Russell MD Dec 05, 2017 16:09
[2017-12-05 20:00] VITALS: BP 130/60; PULSE 84; RESP 20; O2SAT 96
--- NOTE | 2017-12-19 14:50 | MP ---
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 MRI showed edema with findings suspicious for osteomyelitis to distal right hallux. Also showed edema to 5th metatarsal head, but no contrast was used to further differentiate and no comment per radiologist on osteomyelitis to this area, but definite characteristics per radiologist report to hallux with concomitant gangrenous changes to justify amputation. I discussed with the patient that he needed to undergo amputation to remove the nonviable tissue from his great toe area from the foot, as well as to undergo debridement of the heel/lateral foot ulcers. He consented to the procedures. The risks, benefits and potential complications were described to him in detail. He was seen in preop holding by myself, nursing staff and anesthesia were the correct patient, side, and site were confirmed to be correct and the right foot. He was then taken to the surgical suite, placed in supine position where the right foot was prepped and draped in normal sterile fashion. After timeouts were performed as per facility protocol the right great toe was disarticulated at the metatarsophalangeal joint level. Minimal bleeding was noted. No purulence is noted at this level. The sesamoid apparatus was also removed. A culture was taken prior to irrigation with normal saline followed by primary closure of the area with 2-0 nylon. Xeroform, 4 x 4, cast padding and Paul bandage to the right foot. After this procedure ulceration to the right lateral foot around the fifth metatarsal head area noted to measure approximately 1.8 cm in diameter and approximately 0.3 cm in depth with fibrin necrotic base ,excisional debridement was performed of the area with #15 and a curette of this necrotic tissue down to level of joint capsule with minimal bleeding noted as well. An ulceration was also noted to the right plantar aspect of the central heel area where fatty necrotic tissue was noted to this area and foul odor. There is no purulence noted. The wound measured approximately 3 cm in diameter and was approximately 2 cm in depth down to the level of the plantar fascia. A culture was taken after excisional debridement was performed with #15 blade and a curette down to and including all the fibronecrotic tissue down to the level of bleeding subcutaneous tissue noted within the wound. Following debridement, a very large defect was noted to be resulting in the area. Ulcers were previously irrigated followed by dressing consisting of Xeroform, 4 x 4's, cast padding and Paul bandage to the right foot. The patient will be nonweightbearing to the right foot, surgical shoe and will need followup at [facility]. I strongly recommend hyperbaric oxygen therapy due to the patient's high risk for admission and further infection, significant peripheral arterial disease and likely repeat admission for recurring infections. Short operative note. SURGEON: Carole Altman DPM INSURANCE RATER: Staff PREOPERATIVE DIAGNOSES: 1. Gangrene, right hallux. 2. Ulcers right heel, right lateral foot. POSTOPERATIVE DIAGNOSIS: 1. Gangrene, right hallux. 2. Ulcers right heel, right lateral foot. PROCEDURE: 1. Amputation of right hallux. 2. Debridement of ulcers, right heel and right lateral foot. SPECIMENS: 1. Right hallux and sesamoids to pathology. 2. Culture right hallux. 3. Culture right heel. ESTIMATED BLOOD LOSS: Less than 5 mL ANESTHESIA: MAC plus local consisting of 10 mL of 0.5% Marcaine plain. No tourniquet was utilized. COMPLICATIONS: None. CONDITION: Stable to PACU. DISPOSITION: Nonweightbearing right foot and he may follow up with me for the amputation, but will need to follow up for wound care/hyperbarics at wound care center for continued care. Carole Altman DPM HM/rt , 09:40 PM , 10:05 PM [place]
== END 2017-12-05 21:33 | disposition home health service (06) | DRG 255 ==
LOC: HSDC 08:53 → HSDI 15:36 → N07B 19:50
PROVIDERS: ADMIT Surgery; ATTEND Surgery
PROC: B41F1ZZ Fluoroscopy of Right Lower Extremity Arteries using Low Osmolar Contrast (ICD-10-PCS; 2017-12-03)
PROC: 0JBQ0ZZ Excision of Right Foot Subcutaneous Tissue and Fascia, Open Approach (ICD-10-PCS; 2017-12-04)
PROC: 5A1D70Z Performance of Urinary Filtration, Intermittent, Less than 6 Hours Per Day (ICD-10-PCS; 2017-12-04)
PROC: 0Y6P0Z0 Detachment at Right 1st Toe, Complete, Open Approach (ICD-10-PCS; principal; 2017-12-04 16:33)
DX: E11.52 Type 2 diabetes mellitus with diabetic peripheral angiopathy with gangrene (principal); N18.6 End stage renal disease; I12.0 Hypertensive chronic kidney disease with stage 5 chronic kidney disease or end stage renal disease; E11.22 Type 2 diabetes mellitus with diabetic chronic kidney disease; E11.649 Type 2 diabetes mellitus with hypoglycemia without coma; E11.621 Type 2 diabetes mellitus with foot ulcer; Z79.84 Long term (current) use of oral hypoglycemic drugs; I25.10 Atherosclerotic heart disease of native coronary artery without angina pectoris; I25.2 Old myocardial infarction; E78.5 Hyperlipidemia, unspecified; Z23 Encounter for immunization
CPT/HCPCS: 73630; 75710; 80048; 81001; 82948; 85025; 85027; 85610; 85730; 86850; 86900; 86901; 87015; 87070; 87077; 87086; 87102; 87116; 87186; 87205; 87206; 88305; 88311; 90686; 90935; 93005; 96374; 96375; J1100; J1644; J1815; J2370; J2405; J2720; J3010; J3370; J7040; J7050; L3260; Q2038